=== PATIENT | male | born 1990 | race Caucasian/White ===

== ENCOUNTER 2019-11-28 14:27 | Emergency (ER) | payer MEDICAID, SELFPAY ==
[2019-11-28 15:19] VITALS: BP 134/70; PULSE 83; RESP 18; TEMP 37; O2SAT 98; BMI 33.4
--- NOTE | 2019-11-28 15:36 | HMH.EDUTC ---
[facility] [place] Disposition Clinical Impression: Viral syndrome Acute bronchitis Qualifiers: Bronchitis organism: unspecified organism Qualified Code(s): J20.9 - Acute bronchitis, unspecified Disposition: Home, Self-Care Condition on Discharge: Good Instructions: DI for Viral Syndrome, Preventing the Spread of Coronavirus Discharge Instructions Additional Instructions: Drink plenty of fluids. Take tylenol or ibuprofen for pain or fever. Take the medications as directed. Follow up with your regular doctor. GO TO THE ER FOR ANY WORSENING SYMPTOMS FOLLOW THE DIRECTIONS ON THE COVID-19 HAND OUT THAT WE GAVE YOU REGARDING SELF-ISOLATION UNTIL YOU KNOW YOUR COVID-19 RESULTS Prescriptions: Brompheniramine/Pseudoephed/Dm [Bromfed Dm Cough Syrup] 5 ml PO Q6HP PRN #240 syrup PRN Reason: Cough Transmission Status: Received by [facility] # methylPREDNISolone [Medrol] 4 mg PO DIRECTED 6 Days #21 tab.ds.pk Transmission Status: Received by [facility] # Azithromycin [Z-Yon 250mg Tab*] 250 mg PO UD DOSE PK #6 tab Transmission Status: Received by [facility] # Referrals: PCP,No [Primary Care Provider] - Forms: Work/School Release Time of Disposition: 15:57 Medical Decision Making - Medical Records Medical records reviewed: No: I reviewed the patient's medical records. - [place] Inquiry Pt receiving controlled substance: No Vital Signs: 11/28/19 15:19 11/28/19 16:00 Temperature 98.6 F 98.6 F Temperature Source Oral Oral Pulse Rate 83 Pulse Rate [Radial] 83 Respiratory Rate 18 18 Blood Pressure 134/70 Blood Pressure [Right Arm] 134/70 Blood Pressure Mean [Right Arm] 91 Blood Pressure Source Automatic Cuff Blood Pressure Source [Right Arm] Automatic Cuff Blood Pressure Position Sitting Blood Pressure Position [Right Arm] Sitting 02 Sat by Pulse Oximetry 98 Oxygen Delivery Method Room Air Room Air - Lab Data Lab results reviewed: Yes: I reviewed the patient's lab results. [facility] HPI - General Stated complaint: sneezing, cough, vomiting Time Seen by Provider: 11/28/19 15:36 Mode of Arrival: Ambulatory Source of Information: Patient Limitations: No Limitations Description of Symptoms (Recalled from Triage Doc. by RN): coughing up mucous, sneezing, sinus drainage x 1 week HEENT Symptoms (Recalled from RN notes): Yes Resp Symptoms (Recalled from RN notes): Yes Skin Symptoms (Recalled from RN notes): No MS Symptoms (Recalled from RN notes): No Functional Status (Recalled from RN notes): wnl - History of Present Illness Provider Complaint: He c/o feeling bad, coughing, and chilling for the past 3 days. He denies any definite contact with someone with COVID-19. - Related Data Previous Rx's Medication Instructions Recorded Azithromycin [Z-Yon 250mg Tab*] 250 mg PO UD DOSE PK #6 tab 11/28/19 Brompheniramine/Pseudoephed/Dm 5 ml PO Q6HP PRN #240 syrup 11/28/19 [Bromfed Dm Cough Syrup] methylPREDNISolone [Medrol] 4 mg PO DIRECTED 6 Days #21 11/28/19 tab.ds.pk Allergies Allergy/AdvReac Type Severity Reaction Status Date / Time No Known Allergies Allergy Verified 07/24/17 20:50 - Worker's Comp Is this a Worker's Comp case?: No [facility] History - Hepatitis A Screen Drug use history?: No High risk sexual behaviors?: No History of sexually transmitted infection?: No Currently employed?: No Childcare worker?: No Do you have indoor plumbing?: Yes Do you have electricity?: Yes Attestation statement:: This patient has been screened for Hepatitis A risk factors. I have reviewed the patient's past medical history: Yes Medical History: Denies:: Cancer, Diabetes Mellitus Type 1, Diabetes Mellitus Type 2, MRSA Amputation: No Fractures: No - Social History Smoking Status: Former smoker Tobacco Type: cigarettes, e-cigarettes Alcohol Intake: never Alcohol Intake Frequency:: a few times a week Substance Use Type: marijuana
[2019-11-28 16:00] VITALS: BP 134/70; PULSE 83; RESP 18; TEMP 37; O2SAT 98
== END 2019-11-28 16:04 | disposition home or self-care (01) ==
PROVIDERS: Emergency Provider Nurse Practitioner Family
DX: J20.9 Acute bronchitis, unspecified (principal); Z20.828 Contact with and (suspected) exposure to other viral communicable diseases; Z87.891 Personal history of nicotine dependence
CPT/HCPCS: 99201; U0003

== ENCOUNTER → 2021-01-14 09:37 | Outpatient (CLI) | payer MEDICAID, SELFPAY | PROVIDERS: Visit Provider Nurse Practitioner | DX: Z20.822 Contact with and (suspected) exposure to COVID-19 (principal) | CPT/HCPCS: C9803; U0003; U0005 ==

== ENCOUNTER 2021-02-18 14:55 | Emergency (ER) | payer OTHER, SELFPAY ==
[2021-02-18 16:05] VITALS: BP 127/86; PULSE 85; RESP 18; TEMP 37.1; O2SAT 98; BMI 33.3
--- NOTE | 2021-02-18 16:46 | HMH.EDUTC ---
[facility] [place] Disposition Clinical Impression: Low back pain Qualifiers: Chronicity: unspecified Back pain laterality: left Sciatica presence: with sciatica Sciatica laterality: sciatica of left side Qualified Code(s): M54.42 - Lumbago with sciatica, left side Disposition: Home, Self-Care Condition on Discharge: Good Instructions: DI for Sciatica, DI for Muscle Spasm Additional Instructions: *Etodolac every 8 hours with meal as needed for pain/inflammation *Remember you had a Toradol shot in the clinic today, which is similar to Etodolac *Not additional anti-inflammatory like Ibuprofen motrin, aleve, advil with the above amount of Etodolac. You can still take Tylenol every 4 hours as needed if you need something else for pain *Muscle relaxer every 8 hours as needed for muscle spasms but remember, it WILL cause drowsiness You cannot take it and drive, operate machinery or care for small children. *Keep this area active, no movement leads to more stiffness, However take it easy and avoid heavy lifting pushing or pulling *Follow up with you family doctor if no improvement for further treatment Prescriptions: Etodolac 200 mg PO Q8HP PRN #20 cap PRN Reason: Moderate Pain Transmission Status: Received by [id number] Cyclobenzaprine HCl [Flexeril 10mg tablet] 10 mg PO Q8HP PRN #15 tab PRN Reason: Muscle Spasm Transmission Status: Received by [id number] methylPREDNISolone [Medrol 4mg tab] 4 mg PO DIRECTED #21 tab Transmission Status: Received by [id number] Referrals: Provider,Referral, [Primary Care Provider] - Forms: Work/School Release Medical Decision Making - Aden Inquiry Pt receiving controlled substance: No Aden was queried for this patient: No Vital Signs: 02/18/21 16:05 02/18/21 16:56 Temperature 98.7 F 98.7 F Temperature Source Oral Pulse Rate 85 Pulse Rate [Right Brachial] 85 Respiratory Rate 18 18 Blood Pressure 127/86 Blood Pressure [Right Arm] 127/86 Blood Pressure Mean [Right Arm] 99 Blood Pressure Source [Right Arm] Automatic Cuff Blood Pressure Position [Right Arm] Sitting 02 Sat by Pulse Oximetry 98 Oxygen Delivery Method Room Air Orders (Tests/Meds): ED MEDICATIONS Discontinued Medications Generic Name Dose Route Start Last Admin Trade Name Freq PRN Reason Stop Dose Admin Ketorolac Tromethamine 60 mg 02/18/21 16:46 02/18/21 16:55 Ketorolac 60mg/2ml Vial IM 02/18/21 16:47 60 mg ONCE ONE Administration Methylprednisolone Sodium Succinate 125 mg 02/18/21 16:46 02/18/21 16:55 Methylprednisolone Sod Succ 125mg Vial IM 02/18/21 16:47 125 mg ONCE ONE Administration [facility] HPI - General Stated complaint: wcp, back pain Time Seen by Provider: 02/18/21 16:46 Mode of Arrival: Ambulatory Source of Information: Patient Limitations: No Limitations Description of Symptoms (Recalled from Triage Doc. by RN): PATIENT C/O LOWER BACK PAIN THAT RADIATES DOWN LEFT LEG. HE REPORTS IT STARTED LAST NIGHT AFTER HE PACKED A BOX AT WORK HEENT Symptoms (Recalled from RN notes): No Resp Symptoms (Recalled from RN notes): No Skin Symptoms (Recalled from RN notes): No MS Symptoms (Recalled from RN notes): Yes Functional Status (Recalled from RN notes): WNL - History of Present Illness Provider Complaint: Patient states that he was climbing ladder last night carring a heavy box and felt like he pulled something in his lower back States that the pain is more so on his left lower back that radiates into buttock area and down left leg Denies falling denies known injury State that he has had previous back problems similar to this State that today he went to work and it hurt when he would lift his leg or sit on this side - Related Data Previous Rx's Medication Instructions Recorded Azithromycin [Z-Yon 250mg Tab*] 250 mg PO UD DOSE PK #6 tab 11/28/19 Brompheniramine/Pseudoephed/Dm 5 ml PO Q6HP PRN #240 syrup 11/28/19 [Bromfed Dm Cough Syr
[2021-02-18 16:56] VITALS: BP 127/86; PULSE 85; RESP 18; TEMP 37.1; O2SAT 98
== END 2021-02-18 17:23 | disposition home or self-care (01) ==
PROVIDERS: Emergency Provider Nurse Practitioner
DX: M54.42 Lumbago with sciatica, left side (principal); Z87.891 Personal history of nicotine dependence
CPT/HCPCS: 96372; 99202; G0463

== ENCOUNTER 2021-04-06 18:12 | Emergency (ER) | payer MEDICAID, SELFPAY ==
[2021-04-06 18:13] VITALS: BP 136/78; PULSE 74; RESP 16; TEMP 36.9; O2SAT 100; BMI 33.3
[2021-04-06 18:42] LABS: Basophils # 0.3 K/mm3 (0-0.2); Basophils % 2.6 % (0.1-2.0); Eosinophils # 0.3 K/mm3 (0.0-0.4); Eosinophils % 2.6 % (0.1-12.0); Hematocrit 49.7 % (42.0-52.0); Hemoglobin 16.3 g/dL (14.1-18.0); Lymphocytes # 3.9 K/mm3 (0.7-4.5); Lymphocytes % 38.4 % (10-50); Mean Corpuscular HGB Conc 32.7 g/dL (31.8-35.4); Mean Corpuscular Hemoglobin 28.9 pg (27.0-31.2); Mean Corpuscular Volume 88.4 fl (80-94); Mean Platelet Volume 7.6 fl (7.4-10.4); Monocytes # 0.4 K/mm3 (0.1-1.0); Monocytes % 4.1 % (1.7-9.3); Neutrophils # 5.3 K/mm3 (1.8-7.8); Neutrophils % 52.3 % (37.0-80.0); Platelet Count 311 K/mm3 (142-424); Red Blood Count 5.62 M/mm3 (4.60-6.20); Red Cell Distribution Width 13.4 % (11.5-17.5); White Blood Count 10.1 K/mm3 (4.8-10.8)
[2021-04-06 18:48] LABS: Alanine Aminotransferase 204 U/L (12-78); Albumin Level 5.1 g/dl (3.5-5.0); Albumin/Globulin Ratio 1.7 (1.1-1.8); Alkaline Phosphatase 72 U/L (38-126); Anion Gap 12.1 mEq/L (5-15); Aspartate Amino Transferase 88 U/L (17-59); Bilirubin,Total 0.9 mg/dl (0.2-1.3); Blood Urea Nitrogen 13 mg/dl (9-20); Calcium 9.7 mg/dl (8.4-10.2); Carbon Dioxide 30 mmol/L (22.0-30.0); Chloride 103 mmol/L (98-107); Creatinine Clearance Estimated 173 mL/min (50-200); Estimated Glomerular Filt Rate 114 ml/min (>60); GFR (African American) 137 ML/MIN (>60); Glucose 98 mg/dl (74-100); Lipase 318 U/L (23-300); Potassium 4.1 mmoL/L (3.5-5.1); Sodium 141 mmol/L (136-145); Total Protein,Serum 8.1 g/dl (6.3-8.2)
--- NOTE | 2021-04-06 19:01 | HMH.EDGENADL ---
ED Disposition Clinical Impression: Right flank pain Constipation Qualifiers: Constipation type: unspecified constipation type Qualified Code(s): K59.00 - Constipation, unspecified Disposition: Home, Self-Care Condition on Discharge: Good Instructions: DI for Constipation, DI for Flank Pain Additional Instructions: You have been evaluated for right flank pain. This is possibly due to musculoskeletal injury or to constipation. Please take a disimpaction dose of MiraLAX tonight, 3 capfuls. After that, take 1 cap daily. Drink water and eat fiber. Exercise daily. Follow-up with your primary care doctor. Return to the emergency department for any new or worsening symptoms. Prescriptions: polyethylene glycoL 3350 [Miralax 17gm Packet] 17 gm PO DAILY #30 packet Transmission Status: Pending to [id number] Referrals: Thor Baca MD [Staff Physician] - Time of Disposition: 20:32 - Critical Care Critical Care Time: No Attestation: On 04/06/21, the high probability of a clinically significant, sudden or life threatening deterioration of the following system(s) required my full and direct attention, intervention and personal management. The time I documented below is in addition to time spent performing reported procedures but includes the following listed in this critical care notation. Medical Decision Making - Medical Records Medical records reviewed: Yes: I reviewed the patient's medical records. - Aden Inquiry Pt receiving controlled substance: No Vital Signs: 04/06/21 18:13 Temperature 98.4 F Temperature Source Oral Pulse Rate [Right Radial] 74 Respiratory Rate 16 Blood Pressure [Right Arm] 136/78 Blood Pressure Mean [Right Arm] 97 Blood Pressure Source [Right Arm] Automatic Cuff Blood Pressure Position [Right Arm] Sitting 02 Sat by Pulse Oximetry 100 Oxygen Delivery Method Room Air - Lab Data Lab Results 04/06/21 18:29: WBC 10.1, RBC 5.62, Hgb 16.3, Hct 49.7, MCV 88.4, MCH 28.9, MCHC 32.7, RDW 13.4, Plt Count 311, MPV 7.6, Neut % (Auto) 52.3, Lymph % (Auto) 38.4, [place] % (Auto) 4.1, Eos % (Auto) 2.6, Baso % (Auto) 2.6 H, Neut # (Auto) 5.3, Lymph # (Auto) 3.9, [place] # (Auto) 0.4, Eos # (Auto) 0.3, Baso # (Auto) 0.3 H 04/06/21 18:29: Sodium 141, Potassium 4.1, Chloride 103, Carbon Dioxide 30, Anion Gap 12.1, BUN 13, Creatinine 0.80, Estimated Creat Clear 173, Estimated GFR 114, Est GFR ( Amer) 137, Glucose 98, Calcium 9.7, Total Bilirubin 0.9, AST 88 H, ALT 204 H, Alkaline Phosphatase 72, Total Protein 8.1, Albumin 5.1 H, Globulin 3.0, Albumin/Globulin Ratio 1.7, Lipase 318 H 04/06/21 18:44: Urine Color Yellow, Urine Appearance Clear, Urine pH 6.0, Ur Specific [place] 1.025, Urine Protein Negative, Urine Glucose (UA) Negative, Urine Ketones Negative, Urine Blood Negative, Urine Nitrate Negative, Urine Bilirubin Negative, Urine Urobilinogen 0.2, Ur Leukocyte Esterase Negative, Urine RBC None, Urine WBC None, Ur Squamous Epith Cells Occasional, Urine Bacteria None Result diagrams: 04/06/21 18:29 04/06/21 18:29 Orders (Tests/Meds): ED MEDICATIONS Discontinued Medications Generic Name Dose Route Start Last Admin Trade Name Freq PRN Reason Stop Dose Admin Ketorolac Tromethamine 30 mg 04/06/21 18:28 04/06/21 18:32 Ketorolac 30mg/Ml Vial IV 04/06/21 18:29 30 mg ONCE ONE Administration Medical Decision Narrative: In summary this is a previously healthy 30-year-old male presenting to the emergency department with right flank pain. Patient clinically stable on arrival. Vital signs within normal limits. Concern for obstructing kidney stone, nonobstructing stone, urinary tract infection. Will obtain CBC, CMP, urinalysis. Given IV fluids and 30 mg IV Toradol Initial laboratory results are reassuring. Renal function is adequate. There is slight elevation in AST and ALT, consistent with liver disease. Urinalysis does not show red blood cells or signs of i
[2021-04-06 19:03] LABS: Microscopic, Urine URINE MICROSCOPIC (MICROSCOPIC)
[2021-04-06 19:07] LABS: Appearance,Urine CLEAR (Clear); Bilirubin,Urine Negative (Negative); Blood, Urine Negative (Negative); Color,Urine YELLOW (Yellow); Glucose,Urine (UA) Negative (Negative); Ketones,Urine Negative (Negative); Leukocyte Esterase,Urine Negative (Negative); Nitrate,Urine Negative (Negative); Protein,Urine Negative (Negative); Specific Gravity, Urine 1.025 (1.005-1.030); Urobilinogen,Urine 0.2 EU/dl (0.2)
--- NOTE | 2021-04-06 19:36 | CT_ITS ---
PROCEDURE INFORMATION: Exam: CT Abdomen And Pelvis Without Contrast Exam date and time: 04/06/2021 7:36 PM Age: 30 years old Clinical indication: Abdominal pain; Flank; Right; Additional info: Flank pain, stone suspected TECHNIQUE: Imaging protocol: Computed tomography of the abdomen and pelvis without contrast. Radiation optimization: All CT scans at this facility use at least one of these dose optimization techniques: automated exposure control; mA and/or kV adjustment per patient size (includes targeted exams where dose is matched to clinical indication); or iterative reconstruction. [facility] pelvis w con 07/24/2017 9:37 PM FINDINGS: Liver: Normal. No mass. Gallbladder and bile ducts: Normal. No calcified stones. No ductal dilation. Pancreas: Normal. No ductal dilation. Spleen: Normal. No splenomegaly. Adrenal glands: Normal. No mass. Kidneys and ureters: Normal. No hydronephrosis. Stomach and bowel: Considerable volume of stool seen within the colon. Appendix: No evidence of appendicitis. Intraperitoneal space: Unremarkable. No free air. No significant fluid collection. Vasculature: Circumaortic left renal vein. No abdominal aortic aneurysm. Lymph nodes: Unremarkable. No enlarged lymph nodes. Urinary bladder: Unremarkable as visualized. Reproductive: Unremarkable as visualized. Bones/joints: Transitional lumbosacral vertebra. Soft tissues: Unremarkable. IMPRESSION: 1. Constipation. 2. Transitional lumbosacral vertebra.
[2021-04-06 19:39] LABS: Squamous Epithelial Cell,Urine Occasional #/hpf (0-5)
[2021-04-06 21:03] VITALS: BP 119/72; PULSE 69; RESP 16; TEMP 36.9; O2SAT 100
== END 2021-04-06 21:04 | disposition home or self-care (01) ==
PROVIDERS: Emergency Provider Emergency Medicine
DX: R10.30 Lower abdominal pain, unspecified (principal); K59.00 Constipation, unspecified
CPT/HCPCS: 74176; 80053; 81001; 83690; 85025; 96365; 99283

== ENCOUNTER → 2021-06-01 17:23 | Outpatient (CLI) | payer MEDICAID, SELFPAY ==
--- NOTE | 2021-06-01 17:45 | XR_ITS ---
PROCEDURE INFORMATION: Exam: XR Chest Exam date and time: 06/01/2021 5:51 PM Age: 30 years old Clinical indication: Patient HX: Cough pre-op; Additional info: Cough, pre-op TECHNIQUE: Imaging protocol: XR of the chest. Views: 2 views. COMPARISON: CT ABDOMEN PELVIS WO CON 04/06/2021 7:41 PM FINDINGS: Lungs: Unremarkable. No consolidation. Pleural spaces: Unremarkable. No pleural effusion. No pneumothorax. Heart/Mediastinum: Unremarkable. No cardiomegaly. Bones/joints: Unremarkable. IMPRESSION: No acute findings.
--- NOTE | 2021-06-01 17:49 | ECG_ITS ---
APPROVED REPORT Exam: Resting ECG HR:78 bpm ECG Measurements Heart Rate 78 AXES [place] 143 P 53 QRSd 84 QRS 64 QT 344 T 45 QTc 378 Conclusion SINUS RHYTHM NORMAL ECG UNCONFIRMED REPORT Electronically signed by : Erick Taveras MD 06/03/2021 17:36:17
[2021-06-01 18:20] LABS: Microscopic, Urine URINE MICROSCOPIC (MICROSCOPIC)
[2021-06-01 18:30] LABS: Basophils # 0.2 K/mm3 (0-0.2); Basophils % 2.1 % (0.1-2.0); Eosinophils # 0.2 K/mm3 (0.0-0.4); Eosinophils % 1.8 % (0.1-12.0); Hemoglobin 15.1 g/dL (14.1-18.0); Lymphocytes # 2.8 K/mm3 (0.7-4.5); Lymphocytes % 32.3 % (10-50); Mean Corpuscular HGB Conc 32.7 g/dL (31.8-35.4); Mean Corpuscular Hemoglobin 28.7 pg (27.0-31.2); Mean Corpuscular Volume 87.8 fl (80-94); Mean Platelet Volume 7.4 fl (7.4-10.4); Monocytes # 0.4 K/mm3 (0.1-1.0); Monocytes % 4.5 % (1.7-9.3); Neutrophils # 5.1 K/mm3 (1.8-7.8); Neutrophils % 59.3 % (37.0-80.0); Platelet Count 327 K/mm3 (142-424); Red Blood Count 5.24 M/mm3 (4.60-6.20); Red Cell Distribution Width 13.6 % (11.5-17.5); White Blood Count 8.5 K/mm3 (4.8-10.8)
[2021-06-01 18:32] LABS: Appearance,Urine CLEAR (Clear); Bilirubin,Urine Negative (Negative); Blood, Urine Negative (Negative); Color,Urine YELLOW (Yellow); Glucose,Urine (UA) Negative (Negative); Ketones,Urine Negative (Negative); Leukocyte Esterase,Urine Negative (Negative); Nitrate,Urine Negative (Negative); Protein,Urine Negative (Negative); Specific Gravity, Urine >= 1.030 (1.005-1.030); Urobilinogen,Urine 0.2 EU/dl (0.2)
[2021-06-01 18:42] LABS: Chloride 104 mmol/L (98-107)
[2021-06-01 18:43] LABS: Sodium 140 mmol/L (136-145)
[2021-06-01 18:45] LABS: Blood Urea Nitrogen 14 mg/dl (9-20); Estimated Glomerular Filt Rate 99 ml/min (>60); GFR (African American) 120 ML/MIN (>60)
[2021-06-01 18:46] LABS: Alanine Aminotransferase 221 U/L (12-78); Albumin Level 4.3 g/dl (3.5-5.0); Albumin/Globulin Ratio 1.4 (1.1-1.8); Alkaline Phosphatase 72 U/L (38-126); Aspartate Amino Transferase 101 U/L (17-59); Bilirubin,Total 1.3 mg/dl (0.2-1.3); Calcium 8.5 mg/dl (8.4-10.2); Carbon Dioxide 28 mmol/L (22.0-30.0); Globulin 3.1 g/dL (1.3-3.2); Glucose 94 mg/dl (74-100); Squamous Epithelial Cell,Urine Occasional #/hpf (0-5); Total Protein,Serum 7.4 g/dl (6.3-8.2); WBC,Urine Occasional #/hpf (0-3)
== END ==
PROVIDERS: Visit Provider Orthopaedic Surgery Adult Reconstructive Orthopaedic Surgery
DX: Z01.818 Encounter for other preprocedural examination (principal); Z11.52 Encounter for screening for COVID-19
CPT/HCPCS: 36415; 71046; 80053; 81001; 85025; 93005; C9803; U0003; U0005

== ENCOUNTER 2021-09-26 12:24 | Emergency (ER) | payer MEDICAID, SELFPAY ==
[2021-09-26 12:25] VITALS: BP 121/77; PULSE 76; RESP 20; TEMP 36.7; O2SAT 98; BMI 33.3
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
--- NOTE | 2021-09-26 12:43 | PC.NURSE ---
PT TO XR
--- NOTE | 2021-09-26 13:12 | PC.NURSE ---
PT UPDATED AT THIS TIME, NO NEEDS VOICED. CALL LIGHT WITHIN REACH
--- NOTE | 2021-09-26 13:52 | PC.NURSE ---
MD AT BEDSIDE FOR EVALUATION
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
--- NOTE | 2021-09-26 14:02 | PC.NURSE ---
WARM BLANKET PROVIDED AT THIS TIME
--- NOTE | 2021-09-26 14:32 | PC.NURSE ---
1424 CALLED RADIOLOGY FOR UPDATE ON XR RESULTS
[2021-09-26 14:35] VITALS: BP 107/62; PULSE 70; RESP 18; TEMP 36.7; O2SAT 98
== END 2021-09-26 14:35 | disposition home or self-care (01) ==
PROVIDERS: Emergency Provider Student in an Organized Health Care Education/Training Program
DX: S62.501A Fracture of unspecified phalanx of right thumb, initial encounter for closed fracture (principal); X58.XXXA Exposure to other specified factors, initial encounter; Y93.9 Activity, unspecified; Y92.9 Unspecified place or not applicable; Y99.8 Other external cause status
CPT/HCPCS: 73130; 99283

== ENCOUNTER 2022-01-23 12:10 | Emergency (ER) | payer MEDICAID, SELFPAY ==
[2022-01-23 12:11] VITALS: BP 133/97; PULSE 80; RESP 18; TEMP 36.9; O2SAT 96; BMI 29.9
--- NOTE | 2022-01-23 12:18 | ECG_ITS ---
APPROVED REPORT Exam: Resting ECG HR:65 bpm ECG Measurements Heart Rate 65 AXES [place] 154 P 73 QRSd 92 QRS 79 QT 363 T 56 QTc 374 Conclusion SINUS RHYTHM NORMAL ECG UNCONFIRMED REPORT Electronically signed by : Erick Taveras MD 01/26/2022 20:19:46
--- NOTE | 2022-01-23 12:38 | CT_ITS ---
PROCEDURE INFORMATION: Exam: CT Head Without Contrast Exam date and time: 01/23/2022 12:53 PM Age: 31 years old Clinical indication: Dizziness; Additional info: Dizzy, hit head TECHNIQUE: Imaging protocol: Computed tomography of the head without contrast. Radiation optimization: All CT scans at this facility use at least one of these dose optimization techniques: automated exposure control; mA and/or kV adjustment per patient size (includes targeted exams where dose is matched to clinical indication); or iterative reconstruction. COMPARISON: [facility] CT head/brain wo con 07/24/2017 9:30 PM FINDINGS: Brain: Normal. No hemorrhage. Unremarkable white matter. No mass effect. Cerebral ventricles: No ventriculomegaly. Paranasal sinuses: Visualized sinuses are unremarkable. No fluid levels. Mastoid air cells: Visualized mastoid air cells are well aerated. Bones/joints: Unremarkable. No acute fracture. Soft tissues: Left parietal soft tissue swelling. IMPRESSION: Left parietal soft tissue swelling but no evidence of acute intracranial pathology.
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
[2022-01-23 13:27] LABS: Influenza A, PCR Not Detected (NotDetected); Influenza B, PCR Not Detected (NotDetected)
[2022-01-23 14:23] LABS: Coronavirus 19, PCR Detected (NotDetected)
[2022-01-23 14:58] VITALS: BP 113/65; PULSE 63; RESP 18; O2SAT 97
[2022-01-23 15:00] VITALS: BP 111/63; PULSE 60; O2SAT 96
[2022-01-23 15:36] VITALS: BP 111/63; PULSE 62; RESP 20; TEMP 36.7; O2SAT 96
== END 2022-01-23 15:30 | disposition home or self-care (01) ==
PROVIDERS: Emergency Provider Emergency Medicine
DX: U07.1 COVID-19 (principal); S00.83XA Contusion of other part of head, initial encounter; W22.8XXA Striking against or struck by other objects, initial encounter
CPT/HCPCS: 70450; 93005; 99284; C9803; U0003; U0005

== ENCOUNTER → 2022-04-23 09:01 | Outpatient (CLI) | payer MEDICAID, SELFPAY ==
[2022-04-23 18:25] LABS: Basophils # 0.1 K/mm3 (0-0.2); Basophils % 1.3 % (0.1-2.0); Eosinophils # 0.3 K/mm3 (0.0-0.4); Eosinophils % 2.8 % (0.1-12.0); Hematocrit 45.5 % (42.0-52.0); Hemoglobin 15.1 g/dL (14.1-18.0); Lymphocytes # 4.2 K/mm3 (0.7-4.5); Lymphocytes % 41.8 % (10-50); Mean Corpuscular HGB Conc 33.3 g/dL (31.8-35.4); Mean Corpuscular Volume 87.3 fl (80-94); Mean Platelet Volume 8.4 fl (7.4-10.4); Monocytes # 0.5 K/mm3 (0.1-1.0); Monocytes % 4.9 % (1.7-9.3); Neutrophils # 4.9 K/mm3 (1.8-7.8); Neutrophils % 49.2 % (37.0-80.0); Platelet Count 292 K/mm3 (142-424); Red Blood Count 5.21 M/mm3 (4.60-6.20); Red Cell Distribution Width 13.4 % (11.5-17.5)
[2022-04-23 18:29] LABS: Alanine Aminotransferase 106 U/L (12-78); Albumin Level 5.1 g/dl (3.5-5.0); Albumin/Globulin Ratio 1.6 (1.1-1.8); Alkaline Phosphatase 79 U/L (38-126); Anion Gap 8.2 mEq/L (5-15); Aspartate Amino Transferase 52 U/L (17-59); Bilirubin,Total 1.2 mg/dl (0.2-1.3); Blood Urea Nitrogen 16 mg/dl (9-20); Calcium 9.5 mg/dl (8.4-10.2); Carbon Dioxide 27 mmol/L (22.0-30.0); Chloride 108 mmol/L (98-107); Estimated Glomerular Filt Rate 113 ml/min (>60); GFR (African American) 136 ML/MIN (>60); Globulin 3.1 g/dL (1.3-3.2); Glucose 96 mg/dl (74-100); Potassium 4.2 mmoL/L (3.5-5.1); Sodium 139 mmol/L (136-145); Total Protein,Serum 8.2 g/dl (6.3-8.2)
[2022-04-23 18:35] LABS: C-Reactive Protein 2.2 mg/L (0-4)
[2022-04-23 19:00] LABS: Thyroid Stimulating Hormone 1.05 uIU/mL (0.465-4.68)
[2022-04-23 19:31] LABS: Erythrocyte Sedimentation Rate 5 mm/hr (0-15)
[2022-04-25 12:38] LABS: HIV Screen 4th Generation wRfx Non Reactive (Non Reactive)
[2022-04-28 00:08] LABS: HCV Genotype Charge YES; Hepatitis C Genotype 1a (.)
[2022-05-01 21:27] LABS: Hep A Ab, Total NEGATIVE; Hep B Core Ab, Total NEGATIVE; Hepatitis B Surface Antigen REACTIVE
[2022-05-01 21:28] LABS: Hep B Surface Ab, Qual NEGATIVE; Hepatitis C Antibody REACTIVE
== END ==
PROVIDERS: PCP Nurse Practitioner Family; Visit Provider Nurse Practitioner Family
DX: Z00.00 Encounter for general adult medical examination without abnormal findings (principal); Z11.59 Encounter for screening for other viral diseases; B34.9 Viral infection, unspecified; Z11.4 Encounter for screening for human immunodeficiency virus [HIV]
CPT/HCPCS: 80053; 84443; 85025; 85651; 86140; 86703; 86704; 86706; 86708; 87340; 87380; 87522; 87902; G0432

== ENCOUNTER 2022-04-26 17:34 | Emergency (ER) | payer MEDICAID, SELFPAY ==
[2022-04-26 17:40] VITALS: BP 109/70; PULSE 81; RESP 20; TEMP 37; O2SAT 97; BMI 31.1
--- NOTE | 2022-04-26 17:51 | EXP.UTC ---
Discharge Plan Disposition Patient Disposition: Home, Self-Care Condition: Good Prescriptions Prescriptions: New baclofen 5 mg tablet 5 mg PO TID PRN (Reason: muscle spasm) Qty: 9 0RF No Action Vraylar 1.5 mg capsule 1.5 mg PO DAILY Qty: 30 2RF Referrals Follow up/Referrals: Johny Clark APRN [Primary Care Provider] - See instructions Activity Restrictions/Add. Instructions Additional Instructions/Restrictions: *Ibuprofen ap 6 hours with meal as needed for pain/inflammation if your doctor has said you can take it *Remember you had a Toradol shot in the clinic today, which is similar to Motrin *Ice 20 minutes every 2 hours for the first 48 hours after the initial injury followed by moist heat every 20 minutes 3-4 times a day to affected area *Muscle relaxer every 8 hours as needed for muscle spasms but remember, it WILL cause drowsiness You cannot take it and drive, operate machinery or care for small children. *Keep this area active, no movement leads to more stiffness, However take it easy and avoid heavy lifting pushing or pulling *Follow up with you family doctor if no improvement for further treatment ?Straight to ER if any life threatening symptoms? Clinical Impressions Clinical Impression: Low back pain Stand Alone Forms Stand Alone Forms: Work/School Release Instructions Patient Instructions: DI for Low Back Pain, Low Back Pain, Baclofen Discharge ED Provider: Kenia Salcedo [facility] General Stated complaint: back pain, no accident Time Seen by Provider: 04/26/22 17:51 History of Present Illness Provider Complaint: Patient states that over the weekend he was lifting some heavy cylinders and felt something pull in his lower back States that he has a bad back anyhow and thinks he may have aggravated it States that feels like he is having muscle spasms and it catches when he moves certain ways Denies loss of control of bowel or bladder Related Data Previous Rx's Medication Instructions Recorded cariprazine 1.5 mg capsule 1.5 mg PO DAILY #30 caps 04/23/22 (Vraylar) baclofen 5 mg tablet 5 mg PO TID PRN muscle spasm #9 04/26/22 tabs Allergies Allergy/AdvReac Type Severity Reaction Status Date / Time ziprasidone [From Geodon] Allergy Unknown Verified 04/23/22 13:40 [facility] Disclaimer: The information contained in this section may have been updated after the patient was seen, as this information can be updated by other users. Medical History (Updated 04/26/22 @ 18:31 by Kenia Salcedo APRN) ADHD Anxiety and depression Fracture of left elbow History of intravenous drug abuse Manic bipolar I disorder Panic attacks Surgical History (Updated 04/23/22 @ 13:45 by Kaye Cruz MA) H/O elbow surgery Social History (Updated 04/23/22 @ 13:46 by Kaye Cruz MA) Smoking Status: Light tobacco smoker tobacco type: e-cigarettes alcohol intake: never substance use type: former substance user and marijuana current occupational status: other Travel in the last 8 weeks: None ROS Obtained: Yes All systems reviewed & no additional complaints except as documented and Yes Systems reviewed as appropriate & no additional complaints except as documented ENT Ears, Nose, Mouth, and Throat: Reports system reviewed and no additional complaints, except as documented and Reports as per HPI Cardiovascular Cardiovascular: Reports system reviewed and no additional complaints, except as documented and Reports as per HPI Respiratory Respiratory: Reports system reviewed and no additional complaints, except as documented and Reports as per HPI Gastrointestinal Gastrointestingal: Reports system reviewed and no additional complaints, except as documented and as per HPI Musculoskeletal Musculoskeletal: Reports system reviewed and no additional complaints, except as documented, Reports as per HPI and Reports back pain (denies loss of control of bowel or blad
[2022-04-26 18:31] VITALS: BP 109/70; PULSE 81; RESP 20; TEMP 37; O2SAT 97
== END 2022-04-26 18:36 | disposition home or self-care (01) ==
PROVIDERS: Emergency Provider Nurse Practitioner; PCP Nurse Practitioner Family
DX: M54.50 Low back pain, unspecified (principal); X50.9XXA Other and unspecified overexertion or strenuous movements or postures, initial encounter
CPT/HCPCS: 96372; 99212; 99213; G0463

== ENCOUNTER 2022-05-25 17:24 | Emergency (ER) | payer MEDICAID, SELFPAY ==
[2022-05-25 18:10] VITALS: BP 102/61; PULSE 77; RESP 18; TEMP 37.2; O2SAT 98; BMI 32.4
--- NOTE | 2022-05-25 18:20 | XR_ITS ---
PROCEDURE INFORMATION: Exam: XR Lumbosacral Spine Exam date and time: 05/25/2022 6:22 PM Age: 31 years old Clinical indication: Injury or trauma; Fall; Blunt trauma (contusions or hematomas); Patient HX: Fell while skateboarding. ; Additional info: Fell skateboarding TECHNIQUE: Imaging protocol: Radiologic exam of the lumbosacral spine. Views: 2 or 3 views. COMPARISON: CT ABDOMEN PELVIS WO CON 04/06/2021 7:41 PM FINDINGS: Bones/joints: Normal. No acute fracture. Normal alignment. Soft tissues: Unremarkable. IMPRESSION: No acute findings.
--- NOTE | 2022-05-25 18:40 | EXP.UTC ---
Discharge Plan Disposition Patient Disposition: Home, Self-Care Condition: Good Prescriptions Prescriptions: New baclofen 5 mg tablet 5 mg PO TID PRN (Reason: muscle spasm) Qty: 12 0RF ibuprofen 600 mg tablet 600 mg PO Q8H PRN (Reason: pain) Qty: 15 0RF No Action Vraylar 1.5 mg capsule 1.5 mg PO DAILY Qty: 30 2RF baclofen 5 mg tablet 5 mg PO TID PRN (Reason: muscle spasm) Qty: 9 0RF Referrals Follow up/Referrals: Provider,Referral, MD [Primary Care Provider] - See instructions Activity Restrictions/Add. Instructions Additional Instructions/Restrictions: *Ibuprofen ap 8 hours with meal as needed for pain/inflammation *Remember you had a Toradol shot in the clinic today, which is similar to Motrin *Not additional anti-inflammatory like motrin, aleve, advil with the above amount of ibuprofen. You can still take Tylenol every 4 hours as needed if you need something else for pain *Ice 20 minutes every 2 hours for the first 48 hours after the initial injury followed by moist heat every 20 minutes 3-4 times a day to affected area *Muscle relaxer every 8 hours as needed for muscle spasms but remember, it WILL cause drowsiness You cannot take it and drive, operate machinery or care for small children. *Keep this area active, no movement leads to more stiffness, However take it easy and avoid heavy lifting pushing or pulling *Follow up with you family doctor if no improvement for further treatment Clinical Impressions Clinical Impression: Low back pain Qualifiers: Chronicity: unspecified Back pain laterality: left Sciatica presence: with sciatica Sciatica laterality: sciatica of left side Qualified Code(s): M54.42 - Lumbago with sciatica, left side Instructions Patient Instructions: DI for Low Back Pain, Baclofen Discharge ED Provider: Kenia Salcedo [facility] General Stated complaint: ao back pain Mode of Arrival: Ambulatory Source of Information: Patient Limitations: No Limitations Time Seen by Provider: 05/25/22 18:40 Description of Symptoms (Recalled from Triage Doc. by RN): PATIENT C/O LOWER BACK PAIN AFTER FALLING OFF OF HIS SKATEBOARD YESTERDAY HEENT Symptoms (Recalled from RN notes): No Resp Symptoms (Recalled from RN notes): No Skin Symptoms (Recalled from RN notes): No MS Symptoms (Recalled from RN notes): Yes Functional Status (Recalled from RN notes): WNL History of Present Illness Provider Complaint: Patient states that he has had back issues in the past States that he was skateboarding yesterday and he fell and hurt his back State that his back was a little sore but today he bent over to nut picker a box and felt like his back had a catch in it States that since then he has been having spasms in his lower back into his left hip area Denies loss of control of bowel or bladder Denies numbness/tingling in extremities Related Data Previous Rx's Medication Instructions Recorded cariprazine 1.5 mg capsule 1.5 mg PO DAILY #30 caps 04/23/22 (Vraylar) baclofen 5 mg tablet 5 mg PO TID PRN muscle spasm #9 04/26/22 tabs baclofen 5 mg tablet 5 mg PO TID PRN muscle spasm #12 05/25/22 tabs ibuprofen 600 mg tablet 600 mg PO Q8H PRN pain #15 tabs 05/25/22 Allergies Allergy/AdvReac Type Severity Reaction Status Date / Time ziprasidone [From Светлана] Allergy Unknown Verified 04/23/22 13:40 Worker's Comp Is this a Worker's Comp case?: No [facility] Disclaimer: The information contained in this section may have been updated after the patient was seen, as this information can be updated by other users. Medical History (Updated 05/25/22 @ 19:12 by Kenia Salcedo APRN) Acute bronchitis ADHD Anxiety and depression Constipation Contusion of forehead COVID-19 virus infection Facial contusion Fracture of left elbow Fracture of scaphoid History of intravenous drug abuse Laceration Manic bipolar I disorder Nausea and vomiting Panic attacks Right flank pain Seizures Sprain of foot, lef
[2022-05-25 19:07] VITALS: BP 102/61; PULSE 77; RESP 18; TEMP 37.2; O2SAT 98
== END 2022-05-25 19:30 | disposition home or self-care (01) ==
PROVIDERS: Emergency Provider Nurse Practitioner
DX: M54.42 Lumbago with sciatica, left side (principal); F17.290 Nicotine dependence, other tobacco product, uncomplicated
CPT/HCPCS: 96372; 72100; 99212; 99214; G0463

== ENCOUNTER → 2022-07-07 16:26 | Outpatient (CLI) | payer MEDICAID, SELFPAY ==
[2022-07-07 17:52] LABS: Basophils # 0.1 K/mm3 (0-0.2); Basophils % 0.7 % (0.1-2.0); Eosinophils # 0.3 K/mm3 (0.0-0.4); Eosinophils % 2.7 % (0.1-12.0); Hematocrit 46.8 % (42.0-52.0); Hemoglobin 15.5 g/dL (14.1-18.0); Lymphocytes # 4.5 K/mm3 (0.7-4.5); Lymphocytes % 42.5 % (10-50); Mean Corpuscular HGB Conc 33.2 g/dL (31.8-35.4); Mean Corpuscular Hemoglobin 28.4 pg (27.0-31.2); Mean Corpuscular Volume 85.7 fl (80-94); Mean Platelet Volume 8.5 fl (7.4-10.4); Monocytes # 0.5 K/mm3 (0.1-1.0); Monocytes % 4.4 % (1.7-9.3); Neutrophils # 5.3 K/mm3 (1.8-7.8); Neutrophils % 49.7 % (37.0-80.0); Platelet Count 262 K/mm3 (142-424); Red Blood Count 5.46 M/mm3 (4.60-6.20); Red Cell Distribution Width 13.2 % (11.5-17.5); White Blood Count 10.6 K/mm3 (4.8-10.8)
[2022-07-07 18:06] LABS: Alanine Aminotransferase 32 U/L (12-78); Albumin Level 4.6 g/dl (3.5-5.0); Albumin/Globulin Ratio 1.7 (1.1-1.8); Alkaline Phosphatase 64 U/L (38-126); Anion Gap 18.9 mEq/L (5-15); Aspartate Amino Transferase 30 U/L (17-59); Bilirubin,Total 0.9 mg/dl (0.2-1.3); Blood Urea Nitrogen 17 mg/dl (9-20); Calcium 9.1 mg/dl (8.4-10.2); Carbon Dioxide 25 mmol/L (22.0-30.0); Chloride 99 mmol/L (98-107); Estimated Glomerular Filt Rate 113 ml/min (>60); GFR (African American) 136 ML/MIN (>60); Globulin 2.7 g/dL (1.3-3.2); Glucose 95 mg/dl (74-100); Potassium 3.9 mmoL/L (3.5-5.1); Sodium 139 mmol/L (136-145); Total Protein,Serum 7.3 g/dl (6.3-8.2)
[2022-07-17 20:42] LABS: Hepatitis C Antibody Reactive
== END ==
PROVIDERS: PCP Nurse Practitioner Family; Visit Provider Nurse Practitioner Family
DX: B18.2 Chronic viral hepatitis C (principal)
CPT/HCPCS: 80053; 85025; 87380; 87522

== ENCOUNTER 2022-07-12 18:12 | Emergency (ER) | payer MEDICAID, SELFPAY ==
[2022-07-12] VITALS (8 sets, daily range): BP systolic 90–137; BP diastolic 53–86; PULSE 74–105; RESP 15–24; TEMP 36.4–36.6; O2SAT 95–100; BMI 30.7
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
--- NOTE | 2022-07-12 18:34 | PC.NURSE ---
PATIENT TAKEN TO CT, SHERIFF NA MD & FINANCIAL MANAGEMENT CONSULTANT ASSISTED IN TRANSPORT
[2022-07-12 18:35] LABS: Basophils # 0.1 K/mm3 (0-0.2); Basophils % 0.5 % (0.1-2.0); Eosinophils # 0.2 K/mm3 (0.0-0.4); Eosinophils % 1.4 % (0.1-12.0); Hematocrit 49.5 % (42.0-52.0); Hemoglobin 16.3 g/dL (14.1-18.0); Mean Corpuscular HGB Conc 32.8 g/dL (31.8-35.4); Mean Corpuscular Hemoglobin 28.4 pg (27.0-31.2); Mean Corpuscular Volume 86.5 fl (80-94); Mean Platelet Volume 8.2 fl (7.4-10.4); Monocytes # 0.5 K/mm3 (0.1-1.0); Monocytes % 3.2 % (1.7-9.3); Neutrophils # 9.4 K/mm3 (1.8-7.8); Neutrophils % 66.9 % (37.0-80.0); Platelet Count 263 K/mm3 (142-424); Red Blood Count 5.72 M/mm3 (4.60-6.20); Red Cell Distribution Width 13.1 % (11.5-17.5); White Blood Count 14.1 K/mm3 (4.8-10.8)
--- NOTE | 2022-07-12 18:40 | PC.NURSE ---
Patient in CT with staff
--- NOTE | 2022-07-12 18:44 | PC.NURSE ---
PATIENT BACK FROM CT
[2022-07-12 18:49] LABS: Ethyl Alcohol 172 mg/dl (0-10)
[2022-07-12 18:50] LABS: Alanine Aminotransferase 37 U/L (12-78); Albumin Level 5.1 g/dl (3.5-5.0); Albumin/Globulin Ratio 1.5 (1.1-1.8); Alkaline Phosphatase 75 U/L (38-126); Anion Gap 23.8 mEq/L (5-15); Aspartate Amino Transferase 39 U/L (17-59); Bilirubin,Total 0.8 mg/dl (0.2-1.3); Blood Urea Nitrogen 13 mg/dl (9-20); Calcium 9.1 mg/dl (8.4-10.2); Carbon Dioxide 22 mmol/L (22.0-30.0); Chloride 101 mmol/L (98-107); Creatinine Clearance Estimated 150 mL/min (50-200); Estimated Glomerular Filt Rate 98 ml/min (>60); GFR (African American) 119 ML/MIN (>60); Globulin 3.3 g/dL (1.3-3.2); Glucose 120 mg/dl (74-100); Potassium 3.8 mmoL/L (3.5-5.1); Sodium 143 mmol/L (136-145); Total Protein,Serum 8.4 g/dl (6.3-8.2)
--- NOTE | 2022-07-12 19:10 | ECG_ITS ---
APPROVED REPORT Exam: Resting ECG HR:85 bpm ECG Measurements Heart Rate 85 AXES PA 186 P 59 QRSd 97 QRS 63 QT 366 T 23 QTc 408 Conclusion SINUS RHYTHM NORMAL ECG UNCONFIRMED REPORT Electronically signed by : Erick Taveras MD 07/12/2022 21:12:56
--- NOTE | 2022-07-12 20:18 | PC.NURSE ---
RESTRAINTS REMOVED A THIS TIME
[2022-07-12 21:37] LABS: Microscopic, Urine URINE MICROSCOPIC (MICROSCOPIC)
[2022-07-12 21:42] LABS: Appearance,Urine CLEAR (Clear); Bilirubin,Urine Negative (Negative); Blood, Urine Negative (Negative); Color,Urine YELLOW (Yellow); Glucose,Urine (UA) Negative (Negative); Ketones,Urine Negative (Negative); Leukocyte Esterase,Urine Negative (Negative); Nitrate,Urine Negative (Negative); Protein,Urine Negative (Negative); Specific Gravity, Urine 1.015 (1.005-1.030); Urobilinogen,Urine 0.2 EU/dl (0.2)
[2022-07-12 21:54] LABS: Benzodiazepines Screen,Urine Negative ng/ml (<200)
[2022-07-12 21:55] LABS: Amphetamine/Metha Screen,Urine Negative ng/ml (<1000); Barbiturates Screen,Urine Negative ng/ml (<200)
[2022-07-12 21:56] LABS: Cannabinoid Screen,Urine Positive ng/ml (<50)
[2022-07-12 22:57] LABS: Hyaline Casts,Urine Occasional #/lpf (0); Squamous Epithelial Cell,Urine Occasional #/hpf (0-5)
[2022-07-12 23:32] LABS: Cocaine Screen,Urine Negative ng/ml (<300); Methadone Screen,Urine Negative ng/ml (<300)
[2022-07-12 23:33] LABS: Opiate Screen,Urine Negative ng/ml (<300); Phencyclidine Screen,Urine Negative ng/ml (<25)
== END 2022-07-12 21:43 ==
PROVIDERS: Student in an Organized Health Care Education/Training Program; Emergency Provider Emergency Medicine; PCP Nurse Practitioner Family
DX: F10.921 Alcohol use, unspecified with intoxication delirium (principal); R45.1 Restlessness and agitation; F17.290 Nicotine dependence, other tobacco product, uncomplicated
CPT/HCPCS: 70450; 70486; 80053; 80305; 81001; 85025; 93005; 96361; 96372; 96374; 96375; 99285

== ENCOUNTER → 2022-12-24 23:31 | Outpatient (CLI) | payer MEDICAID, SELFPAY ==
[2022-12-24 18:36] LABS: Basophils # 0.1 K/mm3 (0-0.2); Basophils % 0.7 % (0.1-2.0); Eosinophils # 0.3 K/mm3 (0.0-0.4); Hematocrit 45.3 % (42.0-52.0); Hemoglobin 15.7 g/dL (14.1-18.0); Lymphocytes # 3.3 K/mm3 (0.7-4.5); Lymphocytes % 38.9 % (10-50); Mean Corpuscular HGB Conc 34.6 g/dL (31.8-35.4); Mean Corpuscular Hemoglobin 29.6 pg (27.0-31.2); Mean Corpuscular Volume 85.6 fl (80-94); Mean Platelet Volume 8.3 fl (7.4-10.4); Monocytes # 0.4 K/mm3 (0.1-1.0); Monocytes % 4.3 % (1.7-9.3); Neutrophils # 4.5 K/mm3 (1.8-7.8); Neutrophils % 53.1 % (37.0-80.0); Platelet Count 247 K/mm3 (142-424); Red Cell Distribution Width 13.1 % (11.5-17.5); White Blood Count 8.6 K/mm3 (4.8-10.8)
[2022-12-24 18:45] LABS: Alanine Aminotransferase 42 U/L (12-78); Albumin Level 4.5 g/dl (3.5-5.0); Albumin/Globulin Ratio 1.7 (1.1-1.8); Alkaline Phosphatase 61 U/L (38-126); Aspartate Amino Transferase 35 U/L (17-59); Bilirubin,Total 0.8 mg/dl (0.2-1.3); Blood Urea Nitrogen 18 mg/dl (9-20); Calcium 9.4 mg/dl (8.4-10.2); Chloride 103 mmol/L (98-107); Chol/HDL Ratio 5.1 (1-3.5); Cholesterol 183 mg/dl (140-200); Estimated Glomerular Filt Rate 132 ml/min (>60); GFR (African American) 159 ML/MIN (>60); Globulin 2.7 g/dL (1.3-3.2); Glucose 132 mg/dl (74-100); HDL Cholesterol 36 mg/dl (40-60); Potassium 3.9 mmoL/L (3.5-5.1); Sodium 140 mmol/L (136-145); Total Protein,Serum 7.2 g/dl (6.3-8.2); Triglycerides 199 mg/dl (30-150); VLDL Cholesterol 40 mg/dL (0-40)
[2022-12-24 18:57] LABS: Direct LDL Cholesterol 114.84 mg/dL (100-129); Hemoglobin A1C 5.3 % (4.0-6.0)
[2022-12-24 19:00] LABS: 25-OH Vitamin D, Total 39.8 ng/mL (30-100)
[2022-12-24 19:17] LABS: Thyroid Stimulating Hormone 0.57 uIU/mL (0.465-4.68)
[2022-12-24 19:28] LABS: Anion Gap 15.9 mEq/L (5-15); Carbon Dioxide 25 mmol/L (22.0-30.0)
[2022-12-27 11:11] LABS: Anti-Centromere B Antibodies <0.2 AI (0.0-0.9); Anti-DNA (DS) Ab Qn <1 IU/mL (0-9); Anti-Jo-1 <0.2 AI (0.0-0.9); Anti-Smith Antibody <0.2 AI (0.0-0.9); Antichromatin Antibodies <0.2 AI (0.0-0.9); Antiscleroderma-70 Antibodies <0.2 AI (0.0-0.9); RNP Antibodies <0.2 AI (0.0-0.9); Sjogren's Anti-SS-A <0.2 AI (0.0-0.9); Sjogren's Anti-SS-B <0.2 AI (0.0-0.9)
[2023-01-06 09:48] LABS: Rheumatoid Factor IGA < 7 U (<7)
== END ==
LOC: LAB.DROPOF 23:31
PROVIDERS: PCP Student in an Organized Health Care Education/Training Program; Visit Provider Student in an Organized Health Care Education/Training Program
DX: M25.60 Stiffness of unspecified joint, not elsewhere classified (principal); R73.9 Hyperglycemia, unspecified; E66.9 Obesity, unspecified; Z68.35 Body mass index [BMI] 35.0-35.9, adult; Z01.89 Encounter for other specified special examinations; Z13.29 Encounter for screening for other suspected endocrine disorder
CPT/HCPCS: 80053; 80061; 82306; 83036; 84443; 85025; 86225; 86235; 86431

== ENCOUNTER 2023-02-07 17:14 | Emergency (ER) | payer SELFPAY ==
--- NOTE | 2023-02-07 18:10 | EXP.UTC ---
Discharge Plan Disposition Patient Disposition: Home, Self-Care Condition: Good Prescriptions Prescriptions: New amoxicillin [amoxicillin] 875 mg tablet 875 mg PO Q12H Qty: 20 0RF vbfmkuzpgmhrgac-tnigobule-QU [Bromfed DM] 2-30-10 mg/5 mL Syrup 5 ml PO Q6H PRN (Reason: Cough) Qty: 240 0RF ondansetron 4 mg Tablet,Disintegrating 4 mg PO Q8H PRN (Reason: Nausea) Qty: 12 0RF No Action hydroxyzine HCl 25 mg tablet 25 mg PO Q8H Patient Comments: TAKE 1 TABLET BY MOUTH EVERY 8 HOURS FOR 10 DAYS trazodone 50 mg tablet 50 mg PO HS Patient Comments: TAKE 1 TABLET BY MOUTH EVERY NIGHT AT BEDTIME NEEDED divalproex 250 mg tablet,delayed release (DR/EC) 250 mg PO HS Patient Comments: TAKE 1 TABLET BY MOUTH ONCE DAILY AT BEDTIME Referrals Follow up/Referrals: Provider,Referral, MD [Primary Care Provider] - See instructions Activity Restrictions/Add. Instructions Additional Instructions/Restrictions: Drink plenty of fluids. Take tylenol or ibuprofen for pain or fever. Take the medications as directed. Follow up with your regular doctor. GO TO THE ER FOR ANY WORSENING SYMPTOMS Throw your tooth brush away and get a new one. Clinical Impressions Clinical Impression: Strep throat Stand Alone Forms Stand Alone Forms: Work/School Release Instructions Patient Instructions: Strep Throat, DI for Strep Throat, Amoxicillin Discharge ED Provider: Alejandro Garcias [facility] General Stated complaint: st cough pandey fever vomiting congestion Time Seen by Provider: 02/07/23 18:10 History of Present Illness Provider Complaint: He states that since yesterday he has had sore throat, cough, n/v/d. Related Data Home Medications Medication Instructions Recorded Confirmed divalproex 250 mg tablet,delayed 250 mg PO HS 12/24/22 12/24/22 release hydroxyzine HCl 25 mg tablet 25 mg PO Q8H 12/24/22 12/24/22 trazodone 50 mg tablet 50 mg PO HS 12/24/22 12/24/22 Previous Rx's Medication Instructions Recorded amoxicillin 875 mg tablet 875 mg PO Q12H #20 tabs 02/07/23 kgalcpklsejbspu-odupjaqpfzwskud-PC 5 ml PO Q6H PRN Cough #240 mL 12/11/23 2 mg-30 mg-10 mg/5 mL oral syrup (Bromfed DM) ondansetron 4 mg disintegrating 4 mg PO Q8H PRN Nausea #12 tabs 02/07/23 tablet Allergies Allergy/AdvReac Type Severity Reaction Status Date / Time ziprasidone [From Geodon] Allergy Unknown Verified 02/07/23 18:31 PFSH PFS Disclaimer: The information contained in this section may have been updated after the patient was seen, as this information can be updated by other users. 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 Manic bipolar I disorder Nausea and vomiting Panic attacks Patient new to provider Right flank pain Seizures Sprain of foot, left Vertigo Viral syndrome Vomiting Surgical History H/O elbow surgery Left Social History Smoking Status: Current every day smoker tobacco type: e-cigarettes alcohol intake: never substance use type: former substance user and marijuana current occupational status: other Travel in the last 8 weeks: None ROS Obtained: Yes All systems reviewed & no additional complaints except as documented Constitutional Constitutional: Reports chills and Reports fever(s) Eyes Eyes: Denies eye discharge ENT Ears, Nose, Mouth, and Throat: Reports as per HPI Cardiovascular Cardiovascular: Denies chest pain Respiratory Respiratory: Denies chest congestion and Reports cough Gastrointestinal Gastrointestingal: Reports nausea; Denies abdominal pain, constipation, cramping,
[2023-02-07 18:15] VITALS: BP 127/85; PULSE 86; RESP 18; TEMP 36.9; O2SAT 99; BMI 46.5
[2023-02-07 18:24] LABS: UTC Strep Screen (Rapid) Positive (Negative)
[2023-02-07 18:33] VITALS: BP 127/85; PULSE 86; RESP 18; TEMP 36.9; O2SAT 99
== END 2023-02-07 18:33 | disposition home or self-care (01) ==
PROVIDERS: Emergency Provider Nurse Practitioner Family
DX: J02.0 Streptococcal pharyngitis (principal); R07.0 Pain in throat; R51.9 Headache, unspecified; R50.9 Fever, unspecified; R05.9 Cough, unspecified; R09.81 Nasal congestion; R11.2 Nausea with vomiting, unspecified; F17.290 Nicotine dependence, other tobacco product, uncomplicated
CPT/HCPCS: 87880; 99212; 99214; G0463

== ENCOUNTER 2023-03-29 17:38 | Emergency (ER) | payer SELFPAY ==
[2023-03-29 18:20] VITALS: BP 112/72; PULSE 71; RESP 18; TEMP 37.4; O2SAT 98; BMI 32.8
[2023-03-29 18:42] LABS: UTC Influenza A Antigen Negative (Negative); UTC Influenza B Antigen Negative (Negative)
--- NOTE | 2023-03-29 18:50 | EXP.UTC ---
Discharge Plan Disposition Patient Disposition: Home, Self-Care Condition: Good Prescriptions Prescriptions: New ondansetron 4 mg tablet,disintegrating 4 mg PO Q8H PRN (Reason: nausea and vomiting) Qty: 10 0RF Referrals Follow up/Referrals: Provider,Referral, MD [Primary Care Provider] - See instructions Activity Restrictions/Add. Instructions Additional Instructions/Restrictions: Drink extra fluids with and between meals. If you have difficulty drinking, try very small amounts of water or suck on ice chips. ? Avoid fruit juices, as these do not replace minerals and can actually increase diarrhea. ? Children and adults can use sports drinks to replenish electrolytes. Younger children and infants should use products formulated for children, like oral rehydration solutions. ? Eat food in small amounts and let your stomach recover. ? Get lots of rest. You may feel tired or weak. ? No greasy or fried foods for the next 24-48 hours BRAT diet Bananas Rice Apples and [place] ? Make sure to drink plenty of liquids ? Return if needed ? Straight to ER if any life threatening symptoms ? Zofran as prescribed ? Follow up with family doctor in the next 48-72 hours if no improvement or any worsening of symptoms You were tested for today for Flu/COVID19 your test result should be back in the next few hours, you may check your results on the [facility] [employer] [facility] Portal if your COVID or Influenza is positive you must Quarantine for 5 days Clinical Impressions Clinical Impression: Viral syndrome Stand Alone Forms Stand Alone Forms: Work/School Release Instructions Patient Instructions: Nausea and Vomiting-Adult, Ondansetron Discharge ED Provider: [place] Salcedo [facility] [place] General Stated complaint: Sneezing,N/V Mode of Arrival: Ambulatory Source of Information: Patient Limitations: No Limitations Time Seen by Provider: 03/29/23 18:50 Description of Symptoms (Recalled from Triage Doc. by RN): PATIENT C/O COUGH, VOMITING, AND SNEEZING SINCE TUESDAY HEENT Symptoms (Recalled from RN notes): Yes Resp Symptoms (Recalled from RN notes): Yes Skin Symptoms (Recalled from RN notes): No MS Symptoms (Recalled from RN notes): No Functional Status (Recalled from RN notes): WNL History of Present Illness Provider Complaint: Patient states that he hasnt felt well since Tuesday States that he has been having sneezing, nasal congestion, cough and vomiting States that today he was still not feeling any better so he came in worried he may have flu or COVID Related Data Previous Rx's Medication Instructions Recorded ondansetron 4 mg disintegrating 4 mg PO Q8H PRN nausea and 03/29/23 tablet vomiting #10 tabs Allergies Allergy/AdvReac Type Severity Reaction Status Date / Time ziprasidone [From Светлана] Allergy Unknown Verified 02/07/23 18:31 Worker's Comp Is this a Worker's Comp case?: No [facility] Disclaimer: The information contained in this section may have been updated after the patient was seen, as this information can be updated by other users. 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 Manic bipolar I disorder Nausea and vomiting Panic attacks Patient new to provider Right flank pain Seizures Sprain of foot, left Vertigo Viral syndrome Vomiting Surgical History H/O elbow surgery Left Social History Smoking Status: Current every day smoker tobacco type: e-cigarettes alcohol intake: never substance use type: former substance user and marijuana current occupational status: other Travel in the last 8 weeks: None ROS Obtained: Yes All systems reviewed & no additional complaints except as documented and Yes Systems reviewed as appropriate & no additional complaints except as documented Constitutional Constitutional: Reports system reviewed and no additional complaints, except as documented and Reports as per HPI ENT Ears, Nose, Mouth, and Throat: Reports system reviewed and no additional complaints, except as documented, Reports as per HPI, Reports nasal congestion and Reports nasal discharge Cardiovascular Cardiovascular: Reports system reviewed and no additional complaints, except as documented and Reports as per HPI Respiratory Respiratory: Reports system reviewed and no additional complaints, except as documented, Reports as per HPI and Reports cough Gastrointestinal Gastrointestingal: Reports system reviewed and no additional complaints, except as documented, as per HPI, nausea and vomiting Physical Exam General General appearance: alert and in no apparent distress ENT ENT exam: Present mucous membranes moist Expanded ENT Exam Nose exam: Absent sinus tenderness Throat exam: Present normal inspection Respiratory Respiratory exam: Present normal lung sounds bilaterally; Absent respiratory distress or wheezes Cardiovascular Cardiovascular exam: Present regular rate, normal rhythm and normal heart sounds Abdominal Exam Abdominal exam: Present soft and normal bowel sounds; Absent distention or tenderness Neurological Exam Neurological exam: Present alert, oriented X3 and normal gait Medical Decision Making Aden Inquiry Pt receiving controlled substance: No Aden was queried for this patient: No Vital Signs: 03/29/23 18:20 Temperature 99.3 F Temperature Source Oral Pulse Rate [Left Brachial] 71 Respiratory Rate 18 Blood Pressure [Left Arm] 112/72 Blood Pressure Mean [Left Arm] 85 Blood Pressure Source [Left Arm] Automatic Cuff Blood Pressure Position [Left Arm] Sitting 02 Sat by Pulse Oximetry 98 Oxygen Delivery Method Room Air Lab Data Lab results reviewed: Yes I reviewed the patient's lab results. Lab Results 03/29/23 18:27: Influenza Type A Ag Negative, Influenza Type B Ag Negative
[2023-03-29 19:01] VITALS: BP 112/72; PULSE 71; RESP 18; TEMP 37.4; O2SAT 98
[2023-03-29 19:07] LABS: Coronavirus 19, PCR Not Detected (NotDetected); Influenza A, PCR Not Detected (NotDetected); Influenza B, PCR Not Detected (NotDetected)
== END 2023-03-29 19:02 | disposition home or self-care (01) ==
PROVIDERS: Emergency Provider Nurse Practitioner
DX: R11.2 Nausea with vomiting, unspecified (principal); R05.9 Cough, unspecified; R09.81 Nasal congestion; B34.9 Viral infection, unspecified; F17.290 Nicotine dependence, other tobacco product, uncomplicated
CPT/HCPCS: 87636; 87804; 99212; 99214; G0463

== ENCOUNTER 2023-07-14 18:36 | Emergency (ER) | payer SELFPAY ==
[2023-07-14 18:36] VITALS: BP 118/89; PULSE 85; RESP 18; TEMP 36.8; O2SAT 98; BMI 33.3
--- NOTE | 2023-07-14 18:41 | ED_ITS ---
<Statement entered by Sepideh Cannon DO - 07/14/23 23:14> I was consulted by the BECCA, and we discussed the complexity of the problems being addressed. I approved the treatment and management plan for this patient's care in the emergency department, thus performing a substantive portion of the medical decision making. Sepideh Cannon DO Discharge Plan Disposition Patient Disposition: Home, Self-Care Condition: Good Referrals Follow up/Referrals: Latoya Schulz APRN [Nurse Practitioner] - See instructions Provider,Referral, [Primary Care Provider] - See instructions Activity Restrictions/Add. Instructions Additional Instructions/Restrictions: Please call make an appointment with behavioral health as you need better control of your anxiety/panic disorder. Follow-up with your PCP as needed. As we have discussed there is a significant risk of worsening of your symptoms with ingestion of illicit substances and highly recommend avoidance. Clinical Impressions Clinical Impression: Acute anxiety Discharge ED Provider: Sepideh Cannon General Adult HPI <DANIELITO Rowland - Last Filed: 07/14/23 20:06> General Chief complaint: Anxiety Stated complaint: Anxiety/Possible seizures Time Seen by Provider: 07/14/23 18:41 History of Present Illness HPI narrative: Patient presents for evaluation of a possible seizure. Patient states that he frequently gets anxiety and panic attacks and sometimes when he has a really bad panic attack he has what he ultimately describes as carpal pedal spasms but to him he thinks that they could be seizures. Patient states that today he was having a panic attack and began breathing really fast and passed out. His bystander friends saw the syncopal episode and called EMS. Patient also admits to polysubstance abuse but last use was yesterday of methamphetamine. Patient currently denies chest pain fever chills hemoptysis hematochezia melena nausea vomiting diarrhea. Patient's [place] Coma Score is currently 15. Related Data Allergies Allergy/AdvReac Type Severity Reaction Status Date / Time ziprasidone [From Geodon] Allergy Unknown Verified 02/07/23 18:31 PFSH <DANIELITO Rowland - Last Filed: 07/14/23 20:06> PFS Disclaimer: The information contained in this section may have been updated after the patient was seen, as this information can be updated by other users. 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 Manic bipolar I disorder Nausea and vomiting Panic attacks Patient new to provider Right flank pain Seizures Sprain of foot, left Vertigo Viral syndrome Vomiting Surgical History H/O elbow surgery Left Social History Smoking Status: Current every day smoker tobacco type: e-cigarettes alcohol intake: never substance use type: former substance user and marijuana current occupational status: other Travel in the last 8 weeks: None <DANIELITO Rowland - Last Filed: 07/14/23 20:06> ROS Obtained: Yes Systems reviewed as appropriate & no additional complaints except as documented Physical Exam <DANIELITO Rowland - Last Filed: 07/14/23 20:06> General General appearance: alert and in no apparent distress Eye Eye exam: Present normal appearance and PERRL; Absent nystagmus ENT ENT exam: Present normal exam and normal oropharynx Respiratory Respiratory exam: Present normal lung sounds bilaterally and respiratory distress; Absent wheezes Cardiovascular Cardiovascular exam: Present regular rate and normal rhythm Extremities Exam Extremities exam: Present normal inspection and full ROM Back Exam Back exam: Present normal inspection and full ROM; Absent tenderness Neurological Exam Neurological exam: Present alert, oriented X3 and CN II-XII intact Psychiatric Psychiatric exam: Present normal affect and normal mood Skin Skin exam: Present warm, dry and normal color Medical Decision Making <DANIELITO Rowland Last Filed: 07/14/23 20:06> Medical Records Medical records reviewed: Yes I reviewed the patient's medical records. Aden Inquiry Pt receiving controlled substance: No Vital Signs: 07/14/23 18:36 07/14/23 19:02 07/14/23 19:10 Temperature 98.2 F Temperature Source Oral Pulse Rate 160 H 108 H Pulse Rate [Right] 85 Respiratory Rate 18 24 20 Blood Pressure 97/70 L Blood Pressure [Right Arm] 118/89 Blood Pressure Mean 78 Blood Pressure Mean [Right Arm] 98 Blood Pressure Source Blood Pressure Position 02 Sat by Pulse Oximetry 98 99 99 Oxygen Delivery Method Room Air Room Air Room Air 07/14/23 19:31 07/14/23 20:10 Temperature 98.2 F Temperature Source Oral Pulse Rate 70 69 Pulse Rate [Right] Respiratory Rate 15 16 Blood Pressure 126/69 117/81 Blood Pressure [Right Arm] Blood Pressure Mean 88 Blood Pressure Mean [Right Arm] Blood Pressure Source Automatic Cuff Blood Pressure Position Sitting 02 Sat by Pulse Oximetry 97 Oxygen Delivery Method Room Air Room Air Orders (Tests/Meds): ED MEDICATIONS Discontinued Medications Generic Name Dose Route Start Last Admin Trade Name Freq PRN Reason Stop Dose Admin Hydroxyzine HCl 50 mg 07/14/23 18:47 07/14/23 19:12 Hydroxyzine 50mg/Ml Vial IM 07/14/23 18:48 Not Given ONCE ONE Sodium Chloride 1,000 mls @ 999 mls/hr 07/14/23 19:05 07/14/23 19:11 Sod Chlor 0.9% 1000ml Bag IV 07/14/23 20:05 999 mls/hr .Q1H1M ONE Administration Lorazepam 2 mg 07/14/23 19:05 07/14/23 19:06 Lorazepam 2mg/Ml Vial IV 07/14/23 19:06 2 mg ONCE ONE Administration Sodium Chloride 10 ml 07/14/23 19:05 Sodium Chloride 0.9% 10ml Vial IV 08/13/23 19:04 NEEDED PRN to Dilute Lorazepam inj Medical Decision Narrative: In summary patient is a 32-year-old male who presents to the emergency department for evaluation of possible seizure. However per patient's own history he has significant panic disorder and frequent panic attacks and he was experiencing 1 today in which he was hyperventilating and then passed out. He suffered no injury and immediately regained consciousness however his bystander friends called EMS in the interval. Patient is hemodynamically stable upon arrival, afebrile. Physical exam is remarkable only for slight anxiety but patient is awake alert oriented [place] Coma Score 15 and cooperative with exam and has no focal deficits and his physical exam is unremarkable. Differential diagnosis includes cardiogenic syncope versus vasovagal syncope and panic attack. Initial workup will be conducted with twelve-lead EKG. Initial interventions include Vistaril continuous pulse oximetry and continuous cardiac monitoring. Patient actually had the exact same event while in the ER which involved carpopedal spasm that was preceded by hyperventilation however patient did not have a syncopal event. Patient reported significant extremity cramping and pain and had a sustained heart rate greater than 150 while he was breathing more than 30 times a minute. EKG showed sinus tachycardia without evidence of ACS and we medicated with 2 mg of Ativan and patient was able to de-escalate his breathing and all of his symptoms abated at this same time including now a normal heart rate. Given this patient is now asymptomatic and appropriate for discharge. I have advised the patient to discontinue utilizing methamphetamine or stimulants of any kind, I have advised the patient to follow-up with behavioral health to establish a better regimen for his anxiety disorder. Patient verbalized understanding. <Sepideh Cannon, DO - Last Filed: 07/14/23 23:14> Vital Signs: 07/14/23 18:36 07/14/23 19:02 07/14/23 19:10 Temperature 98.2 F Temperature Source Oral Pulse Rate 160 H 108 H Pulse Rate [Right] 85 Respiratory Rate 18 24 20 Blood Pressure 97/70 L Blood Pressure [Right Arm] 118/89 Blood Pressure Mean 78 Blood Pressure Mean [Right Arm] 98 Blood Pressure Source Blood Pressure Position 02 Sat by Pulse Oximetry 98 99 99 Oxygen Delivery Method Room Air Room Air Room Air 07/14/23 19:31 07/14/23 20:10 Temperature 98.2 F Temperature Source Oral Pulse Rate 70 69 Pulse Rate [Right] Respiratory Rate 15 16 Blood Pressure 126/69 117/81 Blood Pressure [Right Arm] Blood Pressure Mean 88 Blood Pressure Mean [Right Arm] Blood Pressure Source Automatic Cuff Blood Pressure Position Sitting 02 Sat by Pulse Oximetry 97 Oxygen Delivery Method Room Air Room Air Orders (Tests/Meds): ED MEDICATIONS Discontinued Medications Generic Name Dose Route Start Last Admin Trade Name Freq PRN Reason Stop Dose Admin Hydroxyzine HCl 50 mg 07/14/23 18:47 07/14/23 19:12 Hydroxyzine 50mg/Ml Vial IM 07/14/23 18:48 Not Given ONCE ONE Sodium Chloride 1,000 mls @ 999 mls/hr 07/14/23 19:05 07/14/23 19:11 Sod Chlor 0.9% 1000ml Bag IV 07/14/23 20:05 999 mls/hr .Q1H1M ONE Administration Lorazepam 2 mg 07/14/23 19:05 07/14/23 19:06 Lorazepam 2mg/Ml Vial IV 07/14/23 19:06 2 mg ONCE ONE Administration Sodium Chloride 10 ml 07/14/23 19:05 Sodium Chloride 0.9% 10ml Vial IV 08/13/23 19:04 NEEDED PRN to Dilute Lorazepam inj ECG Data Tracing #1: I reviewed this ECG and interpreted as documented below: Sinus tachycardia with a ventricular rate of [address] changes concerning for ischemia. Normal axis. Initiated on this EKG was obtained during an active panic attack in which the patient had acutely become tachycardic after having normal rate and rhythm previously. This is the same as his episodes that he had been having at home, consistent with panic attack, carpopedal spasms, and hyperventilation. ECG initial impression date: 07/14/23 ECG initial impression time: 19:07 Medical Decision Narrative: In summary patient is a 32-year-old male who presents to the emergency department for evaluation of possible seizure. However per patient's own hi story he has significant panic disorder and frequent panic attacks and he was experiencing 1 today in which he was hyperventilating and then passed out. He suffered no injury and immediately regained consciousness however his bystander friends called EMS in the interval. Patient is hemodynamically stable upon arrival, afebrile. Physical exam is remarkable only for slight anxiety but patient is awake alert oriented [place] Coma Score 15 and cooperative with exam and has no focal deficits and his physical exam is unremarkable. Differential diagnosis includes cardiogenic syncope versus vasovagal syncope and panic attack. Initial workup will be conducted with twelve-lead EKG. Initial interventions include Vistaril continuous pulse oximetry and continuous cardiac monitoring. Patient actually had the exact same event while in the ER which involved carpopedal spasm that was preceded by hyperventilation however patient did not have a syncopal event. Patient reported significant extremity cramping and pain and had a sustained heart rate greater than 150 while he was breathing more than 30 times a minute. EKG showed sinus tachycardia without evidence of ACS and we medicated with 2 mg of Ativan and patient was able to de-escalate his breathing and all of his symptoms abated at this same time including now a normal heart rate. Given this patient is now asymptomatic and appropriate for discharge. I have advised the patient to discontinue utilizing methamphetamine or stimulants of any kind, I have advised the patient to follow-up with behavioral health to establish a better regimen for his anxiety disorder. Patient verbalized understanding. Davis DO: Patient symptoms for classic panic attack. He hyperventilated to the point of carpopedal spasms and then became lightheaded. Once he calmed himself, his tachycardia improved significantly. His symptoms also significantly improved with Ativan. Critical Care <DANIELITO Rowland - Last Filed: 07/14/23 20:06> Critical Care Time Critical Care Time: No
[2023-07-14 19:02] VITALS: PULSE 160; RESP 24; O2SAT 99
[2023-07-14] MEDS: LORazepam 2MG/ML VIAL 2 MG IV (19:06)
--- NOTE | 2023-07-14 19:06 | ECG_ITS ---
APPROVED REPORT Exam: Resting ECG HR:127 bpm ECG Measurements Heart Rate 127 AXES SD 138 P 71 QRSd 90 QRS 78 QT 325 T 68 QTc 400 Conclusion SINUS TACHYCARDIA No acute ST changes concerning for ischemia. Normal axis and intervals. Electronically signed by : ROLANDO SCHMITZ, 07/14/2023 23:24:40
[2023-07-14 19:10] VITALS: BP 97/70; PULSE 108; RESP 20; O2SAT 99
[2023-07-14] MEDS: 0.9 % SODIUM CHLORIDE 1000ML 1,000 ML 999 ML IV (19:11)
[2023-07-14 19:31] VITALS: BP 126/69; PULSE 70; RESP 15; O2SAT 97
[2023-07-14 20:10] VITALS: BP 117/81; PULSE 69; RESP 16; TEMP 36.8; O2SAT 98
== END 2023-07-14 20:09 | disposition home or self-care (01) ==
PROVIDERS: Emergency Provider Emergency Medicine
DX: F41.0 Panic disorder [episodic paroxysmal anxiety] (principal); R00.0 Tachycardia, unspecified; F41.1 Generalized anxiety disorder; R55 Syncope and collapse; F17.210 Nicotine dependence, cigarettes, uncomplicated; F15.90 Other stimulant use, unspecified, uncomplicated
CPT/HCPCS: 93005; 96361; 96372; 96374; 99284

== ENCOUNTER 2023-12-03 17:33 | Emergency (ER) | payer OTHER, SELFPAY ==
[2023-12-03 17:47] VITALS: BP 124/80; PULSE 77; RESP 20; TEMP 37.2; O2SAT 96; BMI 34.7
--- NOTE | 2023-12-03 18:51 | ED_ITS ---
Discharge Plan Disposition Patient Disposition: Home, Self-Care Condition: Good Prescriptions Prescriptions: New ibuprofen 800 mg tablet 800 mg PO TID PRN (Reason: pain) Qty: 30 0RF Rx Instructions: May start 12/04/23. No Action divalproex 250 mg tablet,delayed release (DR/EC) 250 mg PO DAILY trazodone 50 mg tablet 50 mg PO DAILY Referrals Follow up/Referrals: Provider,Referral, MD [Primary Care Provider] - See instructions Activity Restrictions/Add. Instructions Additional Instructions/Restrictions: Do not take Ibuprofen today. May start tomorrow. Call back in am for urine results. Clinical Impressions Clinical Impression: Acute low back pain with sciatica Qualifiers: Back pain laterality: bilateral Sciatica laterality: sciatica of left side Qualified Code(s): M54.42 - Lumbago with sciatica, left side Stand Alone Forms Stand Alone Forms: Work/School Release Instructions Patient Instructions: DI for Low Back Pain, DI for Back Pain With Sciatica Print Language Print Language: Irish Discharge ED Provider: Abida Maravilla [facility] General Stated complaint: Lower back pain radiating to hips Mode of Arrival: Ambulatory Source of Information: Patient Time Seen by Provider: 12/03/23 18:51 Description of Symptoms (Recalled from Triage Doc. by RN): GENERALIZED LOW BACK PAIN, INTO HIPS, RATES PAIN 7/10, HAS NOT HAD MEDICATION FOR IT TODAY. ALSO STATES HE HAD KIDNEY STONES 2 MONTHS AGO AND IS UNSURE IF HE PASSED THEM. HEENT Symptoms (Recalled from RN notes): No Resp Symptoms (Recalled from RN notes): No Skin Symptoms (Recalled from RN notes): No MS Symptoms (Recalled from RN notes): Yes Functional Status (Recalled from RN notes): LOWER BACK PAIN, INABLITY TO STAY AT WORK TODAY History of Present Illness Provider Complaint: Pt reports that his low back hurt and the pain ran down into the left buttock. He states that he had to leave work as the pain was intense, rating 7/10. Pt states he has taken Tylenol/Motrin for his symptoms. Related Data Home Medications ?Medication ?Instructions ?Recorded ?Confirmed divalproex 250 mg tablet,delayed 250 mg PO DAILY 12/03/23 12/03/23 release trazodone 50 mg tablet 50 mg PO DAILY 12/03/23 12/03/23 Previous Rx's ?Medication ?Instructions ?Recorded ibuprofen 800 mg tablet 800 mg PO TID PRN pain #30 tabs 12/03/23 Allergies Allergy/AdvReac Type Severity Reaction Status Date / Time ziprasidone [From Luci[place]] Allergy Unknown Verified 02/07/23 18:31 Worker's Comp Is this a Worker's Comp case?: No [facility] Disclaimer: The information contained in this section may have been updated after the patient was seen, as this information can be updated by other users. 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 Manic bipolar I disorder Nausea and vomiting Panic attacks Patient new to provider Right flank pain Seizures Sprain of foot, left Vertigo Viral syndrome Vomiting Surgical History H/O elbow surgery Left Social History Smoking Status: Current every day smoker tobacco type: e-cigarettes alcohol intake: never substance use type: former substance user and marijuana current occupational status: other Travel in the last 8 weeks: None ROS Obtained: Yes All systems reviewed & no additional complaints except as documented Constitutional Constitutional: Reports system reviewed and no additional complaints, except as documented Eyes Eyes: Reports system reviewed and no additional complaints, except as documented ENT Ears, Nose, Mouth, and Throat: Reports system reviewed and no additional complaints, except as documented Cardiovascular Cardiovascular: Reports system reviewed and no additional complaints, except as documented Respiratory Respiratory: Reports system reviewed and no additional complaints, except as documented Gastrointestinal Gastrointestingal: Reports system reviewed and no additional complaints, except as documented Genitourinary Male Genitourinary: Reports system reviewed and no additional complaints, except as documented Musculoskeletal Musculoskeletal: Reports system reviewed and no additional complaints, except as documented, Reports back pain, Reports myalgias, Reports radiating pain into limb and Reports stiffness Integumentary/Breasts Skin/Breast: Reports system reviewed and no additional complaints, except as documented Neurologic Neurologic: Reports system reviewed and no additional complaints, except as documented Endocrine Endocrine: Reports system reviewed and no additional complaints, except as documented Hematologic/Lymphatic Henatologic/Lymphatic: Reports system reviewed and no additional complaints, except as documented Allergic/Immunologic Allergic/Immunologic: Reports system reviewed and no additional complaints, except as documented Physical Exam General General appearance: alert and in no apparent distress Head Head exam: atraumatic and normocephalic Eye Eye exam: Present normal appearance ENT ENT exam: Present normal exam, normal oropharynx and mucous membranes moist Neck Neck exam: Present normal inspection Chest Chest inspection: Present normal inspection and symmetric chest wall rise Respiratory Respiratory exam: Present normal lung sounds bilaterally Cardiovascular Cardiovascular exam: Present regular rate, normal rhythm and normal heart sounds Abdominal Exam Abdominal exam: Present soft and normal bowel sounds Extremities Exam Extremities exam: Present normal inspection Back Exam Back exam: Present paraspinal tenderness, vertebral tenderness (L4-5) and sciatic notch tenderness (L) Neurological Exam Neurological exam: Present alert and oriented X3 Psychiatric Psychiatric exam: Present normal affect and normal mood Skin Skin exam: Present warm, dry and intact Lymphatic Lymphatic Findings: no adenopathy Medical Decision Making Medical Records Screening: Per USPSTF and CDC recommendations, given the prevalence of disease in our region, it is our hospital?s policy to screen for HIV and viral Hepatitis for all patients aged 18 and over and those with ongoing risk factors. Aden Inquiry Pt receiving controlled substance: No Aden was queried for this patient: No Vital Signs: 12/03/23 17:47 Temperature 98.9 F Temperature Source Oral Pulse Rate [Left Radial] 77 Respiratory Rate 20 Blood Pressure [Left Arm] 124/80 Blood Pressure Mean [Left Arm] 94 02 Sat by Pulse Oximetry 96 Orders (Tests/Meds): ORDERS Category Date Time Status UA [Urinalysis and Microscopic] Stat Lab 12/03/23 17:54 Uncollected
[2023-12-03] MEDS: KETOROLAC 60MG/2ML VIAL 60 MG IM (18:59)
[2023-12-03] MEDS: DEXAMETHASONE 4MG/ML 1ML VIAL 4 MG IM (18:59)
[2023-12-03 19:07] VITALS: BP 124/80; PULSE 77; RESP 20; TEMP 37.2
[2023-12-03 19:12] LABS: Microscopic, Urine URINE MICROSCOPIC (MICROSCOPIC)
[2023-12-03 19:20] LABS: Bilirubin,Urine Negative (Negative); Blood, Urine Negative (Negative); Color,Urine YELLOW (Yellow); Glucose,Urine (UA) Negative (Negative); Ketones,Urine Negative (Negative); Leukocyte Esterase,Urine Negative (Negative); Nitrate,Urine Negative (Negative); PH,Urine 7.5 (5.0-8.5); Protein,Urine Negative (Negative); Specific Gravity, Urine 1.025 (1.005-1.030); Urobilinogen,Urine 0.2 EU/dl (0.2)
[2023-12-03 19:45] LABS: Appearance,Urine Cloudy (Clear)
[2023-12-03 20:45] LABS: Squamous Epithelial Cell,Urine Occasional #/hpf (0-5); WBC,Urine Occasional #/hpf (0-3)
[2023-12-03 20:46] LABS: Amorphous Sediment,Urine 3+ /lpf; Bacteria,Urine 1+ /lpf
== END 2023-12-03 19:13 | disposition home or self-care (01) ==
PROVIDERS: Emergency Provider Nurse Practitioner Family
DX: M54.42 Lumbago with sciatica, left side (principal)
CPT/HCPCS: 81001; 96372; 99213; G0381; J1100; J1885

== ENCOUNTER 2023-12-18 19:16 | Emergency (ER) | payer OTHER, SELFPAY ==
[2023-12-18 19:26] VITALS: BP 135/71; PULSE 82; RESP 20; TEMP 36.6; O2SAT 97; BMI 33.3
--- NOTE | 2023-12-18 19:52 | ED_ITS ---
Discharge Plan Disposition Patient Disposition: Home, Self-Care Condition: Good Prescriptions Prescriptions: New cyclobenzaprine 10 mg Tablet 10 mg PO BID PRN (Reason: Muscle Spasm) Qty: 20 0RF methylprednisolone 4 mg Tablets,Dose Pack 4 mg PO DIRECTED 6 Days Qty: 21 0RF Rx Instructions: Take 1 pack as directed for 6 days No Action divalproex 250 mg tablet,delayed release (DR/EC) 250 mg PO DAILY trazodone 50 mg tablet 50 mg PO DAILY ibuprofen 800 mg tablet 800 mg PO TID PRN (Reason: pain) Qty: 30 0RF Rx Instructions: May start 12/04/23. Referrals Follow up/Referrals: Ely Fuchs APRN [Primary Care Provider] - See instructions Activity Restrictions/Add. Instructions Additional Instructions/Restrictions: Go home and rest. It would be best if you rested tomorrow too. No heavy lifting & No twisting for the next few days. Take the oral medications as directed. The muscle relaxer (cyclobenzaprine--Flexeril) will make you drowsy, so don't drive or operate heavy machinery after taking it. Don't take the flexeril with any other muscle relaxers. They will make you too drowsy. Don't start the oral steroids (medrol dose pack) until tomorrow, since you had the shots in here today. Follow up with your regular doctor. GO TO THE ER FOR ANY WORSENING SYMPTOMS OR CONCERN, ESPECIALLY BOWEL OR BLADDER ISSUES, SADDLE AREA NUMBNESS, FEVER, ETC Clinical Impressions Clinical Impression: Low back pain Qualifiers: Chronicity: chronic Back pain laterality: bilateral Sciatica presence: with sciatica Sciatica laterality: bilateral sciatica Qualified Code(s): M54.42 - Lumbago with sciatica, left side Stand Alone Forms Stand Alone Forms: Work/School Release Instructions Patient Instructions: Low Back Pain, DI for Low Back Pain, Ketorolac Injection, Dexamethasone Injection Print Language Print Language: Latvian Discharge ED Provider: Alejandro Garcias [facility] General Stated complaint: lower back pain Mode of Arrival: Ambulatory Source of Information: Patient Time Seen by Provider: 12/18/23 19:52 Description of Symptoms (Recalled from Triage Doc. by RN): LOWER BACK PAIN HEENT Symptoms (Recalled from RN notes): No Resp Symptoms (Recalled from RN notes): No Skin Symptoms (Recalled from RN notes): No MS Symptoms (Recalled from RN notes): Yes Functional Status (Recalled from RN notes): WNL History of Present Illness Provider Complaint: He states that he has had low back pain for the past 2 days. 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 He denies any urinary and bowel complaints. He denies any saddle area numbness. Related Data Home Medications ?Medication ?Instructions ?Recorded ?Confirmed divalproex 250 mg tablet,delayed 250 mg PO DAILY 12/03/23 12/18/23 release trazodone 50 mg tablet 50 mg PO DAILY 12/03/23 12/18/23 Previous Rx's ?Medication ?Instructions ?Recorded ibuprofen 800 mg tablet 800 mg PO TID PRN pain #30 tabs 12/03/23 cyclobenzaprine 10 mg tablet 10 mg PO BID PRN Muscle Spasm #20 12/18/23 tabs methylprednisolone 4 mg tablets in 4 mg PO DIRECTED 6 days #21 tabs 12/18/23 a dose pack Allergies Allergy/AdvReac Type Severity Reaction Status Date / Time ziprasidone [From Светлана] Allergy Unknown Verified 02/07/23 18:31 Worker's Comp Is this a Worker's Comp case?: No [facility] Disclaimer: The information contained in this section may have been updated after the patient was seen, as this information can be updated by other users. 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 Manic bipolar I disorder Nausea and vomiting Panic attacks Patient new to provider Right flank pain Seizures Sprain of foot, left Vertigo Viral syndrome Vomiting Surgical History H/O elbow surgery Left Social History Smoking Status: Current every day smoker tobacco type: e-cigarettes alcohol intake: never substance use type: former substance user and marijuana current occupational status: other Travel in the last 8 weeks: None ROS Obtained: Yes All systems reviewed & no additional complaints except as documented Constitutional Constitutional: Denies chills and Denies fever(s) Eyes Eyes: Denies eye discharge ENT Ears, Nose, Mouth, and Throat: Denies dizziness, Denies otalgia and Denies sore throat Cardiovascular Cardiovascular: Denies chest pain Respiratory Respiratory: Denies shortness of breath, Denies chest congestion, Denies cough, Denies stridor and Denies wheezing Gastrointestinal Gastrointestingal: Denies nausea or vomiting Musculoskeletal Musculoskeletal: Reports as per HPI and Denies numbness Integumentary/Breasts Skin/Breast: Denies rash Neurologic Neurologic: Denies dizziness, Denies numbness, Denies paresthesias and Denies radicular pain Allergic/Immunologic Allergic/Immunologic: Denies wheezing Physical Exam General General appearance: alert and in no apparent distress Head Head exam: atraumatic, normocephalic and normal inspection Eye Eye exam: Present normal appearance, PERRL and EOMI ENT ENT exam: Present normal exam, normal oropharynx, mucous membranes moist, TM's normal bilaterally and normal external ear exam Neck Neck exam: Present normal inspection, full ROM and trachea midline; Absent meningismus or lymphadenopathy Chest Chest inspection: Present normal inspection and symmetric chest wall rise; Absent tenderness Respiratory Respiratory exam: Present normal lung sounds bilaterally; Absent respiratory distress Cardiovascular Cardiovascular exam: Present regular rate and normal rhythm; Absent JVD Abdominal Exam Abdominal exam: Present soft and normal bowel sounds; Absent distention, tenderness or guarding Extremities Exam Extremities exam: Present normal inspection, full ROM and normal capillary refi ll; Absent calf tenderness Back Exam Back exam: Present normal inspection and full ROM; Absent tenderness, CVA tenderness (R), CVA tenderness (L) or muscle spasm Neurological Exam Neurological exam: Present alert, oriented X3, CN II-XII intact, normal gait and reflexes normal; Absent motor sensory deficit Expanded Neurological Exam Speech: Present fluid speech Cranial nerves: Normal: EOM function (II, III, IV, ), facial sensation (V), facial palsy (VII), gag reflex (IX), spinal accessory function (XI) and tongue deviation (XII) Cerebellar function: normal gait Motor strength - LUE: 5/5 Motor strength - RUE: 5/5 Motor strength - LLE: 5/5 Motor strength - RLE: 5/5 Sensory exam upper extremity: Normal: light touch and 2 point discrimination Sensory exam lower extremity: Normal: light touch and 2 point discrimination DTR: 2+: biceps (L), biceps (R), patellar (L), patellar (R), Achilles tendon (L) and Achilles tendon (R) Spinal cord function: Absent saddle anesthesia Psychiatric Psychiatric exam: Present normal affect and normal mood Skin Skin exam: Present warm, dry, intact and normal color Lymphatic Lymphatic Findings: no adenopathy Medical Decision Making Medical Records Medical records reviewed: No I reviewed the patient's medical records. Screening: Per USPSTF and CDC recommendations, given the prevalence of disease in our region, it is our hospital?s policy to screen for HIV and viral Hepatitis for all patients aged 18 and over and those with ongoing risk factors. Aden Inquiry Pt receiving controlled substance: No Vital Signs: 12/18/23 19:26 Temperature 97.8 F Temperature Source Oral Pulse Rate [Right Radial] 82 Respiratory Rate 20 Blood Pressure [Left Arm] 135/71 Blood Pressure Mean [Left Arm] 92 02 Sat by Pulse Oximetry 97 Orders (Tests/Meds): ED MEDICATIONS Generic Name Dose Route Start Last Admin Trade Name Waqasq PRN Reason Stop Dose Admin Dexamethasone Sodium Phosphate 8 mg 12/18/23 19:46 Dexamethasone 4mg/Ml 1ml Vial IM 12/18/23 19:47 ONCE ONE Ketorolac Tromethamine 60 mg 12/18/23 19:46 Ketorolac 60mg/2ml Vial IM 12/18/23 19:47 ONCE ONE
[2023-12-18] MEDS: KETOROLAC 60MG/2ML VIAL 60 MG IM (19:53)
[2023-12-18] MEDS: DEXAMETHASONE 4MG/ML 1ML VIAL 8 MG IM (19:53)
[2023-12-18 19:58] VITALS: BP 135/71; PULSE 82; RESP 20; TEMP 36.6
== END 2023-12-18 20:05 | disposition home or self-care (01) ==
PROVIDERS: Emergency Provider Nurse Practitioner Family; PCP Nurse Practitioner Family
DX: M54.42 Lumbago with sciatica, left side (principal); M54.50 Low back pain, unspecified
CPT/HCPCS: 99212; G0381; J1100; J1885

== ENCOUNTER 2024-12-16 17:06 | Emergency (ER) | payer OTHER, SELFPAY ==
--- OUTSIDE RECORDS SUMMARY | 2023-10-26 05:00 | XMS_ITS ---
Author Organization [facility] Address [address] [place] [address] Phone [phone] Care Team Providers Care Medical Management Specialist Name Role Phone Ely Fuchs Unavailable [phone] Migration, Provider Unavailable Unavailable REASON FOR VISIT TelEnc Encounters Encounter Location Date Provider Diagnosis [address] [address] 10/26/2023 Provider Migration Plan Of Treatment No Information Progress Notes * MILY RUBIOB:1990 (33 yo M)Acc No.[id number]:10/26/2023 Patient: Amaris MARISSA SAHU :1990 A ge:32 Y S ex:Male Address:[address] [place] [address] [address] [place], [address] Subjective: * Chief Complaints: * T elEnc * * Date:
--- OUTSIDE RECORDS SUMMARY | 2023-12-02 05:00 | XMS_ITS ---
Author Organization [facility] Address [address] [place] [address] Phone [phone] Care Team Providers Care Manager Life Name Role Phone Ely Fuchs Unavailable [phone] Migration, Provider Unavailable Unavailable REASON FOR VISIT EMR-Carter Encounters Encounter Location Date Provider Diagnosis [facility] [address] [place] [address] 12/02/2023 Provider Migration Unspecified mood [affective] disorder F39 and Insomnia, unspecified G47.00 Assessments Encounter Date Diagnosis (ICD Code) Assessment Notes Treatment Notes Treatment Clinical Notes Section Notes 12/02/2023 Unspecified mood [affective] disorder (ICD-10 - F39) 12/02/2023 Insomnia, unspecified (ICD-10 - G47.00) Plan Of Treatment No Information Progress Notes * MILY RUBIOB:1990 (33 yo M)Acc No.[id number]:12/02/2023 Patient: MARISSA SILVER Provider: Naomie coon Migration :1990 A ge:32 Y S ex:Male Date:12/02/2023 Address:[address] [place] [address] [place] [facility] [place] Subjective: * Chief Complaints: * E MR-Carter Assessment: * Assessment: 1. U nspecified mood [affective] disorder - F39 2 . I nsomnia, unspecified - G47.00 * Electronic signature of Prov ider Migration on 12/16/2024 at 05:20 PM EDT Sign off status: Pending * Provider: Naomie coon Migration Date: 1 Generated for Janet hudson/Billy/eTransmitting on: 05:20 PM EDT
--- OUTSIDE RECORDS SUMMARY | 2023-12-02 05:00 | XMS_ITS ---
Author Organization [facility] Address [address] [place] [address] Phone [phone] Care Team Providers Care County Extension Agent Name Role Phone Ely Fuchs Unavailable [phone] Migration, Provider Unavailable Unavailable REASON FOR VISIT TelEnc Encounters Encounter Location Date Provider Diagnosis [address] [address] 12/02/2023 Provider Migration Plan Of Treatment No Information Progress Notes * MILY RUBIOB:1990 (33 yo M)Acc No.[id number]:12/02/2023 Patient: Amaris MARISSA SAHU :1990 A ge:32 Y S ex:Male Address:[address] [place] [address] [address] [place] [facility] [place], [address] Subjective: * Chief Complaints: * T elEnc * * Date:
--- OUTSIDE RECORDS SUMMARY | 2023-12-13 08:30 | XMS_ITS ---
Author Organization [facility] Address [address] [place] [address] Phone [phone] Care Team Providers Care Harbor Tug Captain Name Role Phone Ely Fuchs Unavailable [phone] Vital Signs Temperature 97.3 degrees Fahrenheit 12/13/19 24 Blood pressure systolic 120 mm Hg 12/13/19 24 Blood pressure diastolic 77 mm Hg 024 Height 65.00 in 12/13/2023 Weight 200.00 lbs 12/13/2023 BMI 33.3 kg/m2 12/13/2023 Oximetry 97 % 12/13/2023 Height-cm 165.10 cm 12/13/2023 Weight-kg 90.72 kg 12/13/2023 Encounters Encounter Location Date Provider Diagnosis [facility] [address] [place] [address] 12/13/2023 Ely Jef Insomnia, unspecifie d G47.00 [...] Notes * MILY RUBIOB:1990 (33 yo M)Acc No.[id number]:12/13/2023 Progress Notes Patient: MARISSA SILVER Provider: Andres Fuchs APRN, PhD :1990 A ge:32 Y S ex:Male Date:12/13/2023 Address:[address] [place] [address] , [place], [id number] Objective: * Vitals: B P: 120/77 mm [...] * Electronic signature of SHANNON Andrew on 12/16/2024 at 05:20 PM EDT Sign off status: Pending * Provider: Andres Fuchs APRN, PhD Date: Generated for Janet hudson/Billy/eTransmitting on: 05:20 PM EDT
--- OUTSIDE RECORDS SUMMARY | 2023-12-27 08:30 | XMS_ITS ---
Author Organization [facility] Address [address] [place] [address] Phone [phone] Care Team Providers Care Muck Miner Blasting Name Role Phone JefBeckiEly Unavailable [phone] Vital Signs Temperature 97.1 degrees Fahrenheit 12/27/19 24 Blood pressure systolic 131 mm Hg 12/27/19 24 Blood pressure diastolic 77 mm Hg 024 Height 65.00 in 12/27/2023 Weight 218.20 lbs 12/27/2023 BMI 36.3 kg/m2 12/27/2023 Oximetry 96 % 12/27/2023 Height-cm 165.10 cm 12/27/2023 Weight-kg 98.97 kg 12/27/2023 Encounters Encounter Location Date Provider Diagnosis [facility] [address] [place] [address] 12/27/2023 Ely Fuchs Unspecified mood [affective] disorder [...] Notes * MILY RUBIOB:1990 (33 yo M)Acc No.[id number]:12/27/2023 Progress Notes Patient: Amaris LUIS ALBERTO MARISSA Provider: Andres Fuchs APRN, PhD :1990 A ge:33 Y S ex:Male Date:12/27/2023 Address:[address] [place] [address] , [place], [id number] Objective: * Vitals: B P: 131/77 mm [...] signature of SHANNON Andrew on 12/16/2024 at 05:21 PM EDT Sign off status: Pending * Provider: Andres Fuchs APRN, PhD Date: Generated for Janet hudson/Billy/eTjoannasmitting on: 05:21 PM EDT
--- OUTSIDE RECORDS SUMMARY | 2024-02-02 05:00 | XMS_ITS ---
Author Organization [facility] Address [address] [place] [address] Phone [phone] Care Team Providers Care Viticulture Teacher Name Role Phone Ely Fuchs Unavailable [phone] Migration, Provider Unavailable Unavailable REASON FOR VISIT TelEnc Encounters Encounter Location Date Provider Diagnosis [address] [address] 02/02/2024 Provider Migration Plan Of Treatment No Information Progress Notes * MILY RUBIOB:1990 (33 yo M)Acc No.[id number]:02/02/2024 Patient: Amaris MARISSA SAHU :1990 A ge:33 Y S ex:Male Address:[address] [place] [address] [place] [facility] [place], [address] Subjective: * Chief Complaints: * T elEnc * * Date:
--- OUTSIDE RECORDS SUMMARY | 2024-02-02 05:00 | XMS_ITS ---
Author Organization [facility] Address [address] [place] [address] Phone [phone] Care Team Providers Care Underwater Roboticist Name Role Phone Ely Fuchs Unavailable [phone] Migration, Provider Unavailable Unavailable REASON FOR VISIT EMR-Carter Encounters Encounter Location Date Provider Diagnosis [facility] [address] [place] [address] 02/02/2024 Provider Migration Insomnia, unspecified G47.00 and Unspecified mood [affective] disorder F39 Assessments Encounter Date Diagnosis (ICD Code) Assessment Notes Treatment Notes Treatment Clinical Notes Section Notes 02/02/2024 Insomnia, unspecified (ICD-10 - G47.00) 02/02/2024 Unspecified mood [affective] disorder (ICD-10 - F39) Plan Of Treatment No Information Progress Notes * MILY RUBIOB:1990 (33 yo M)Acc No.[id number]:02/02/2024 Patient: MARISSA SILVER Provider: Naomie coon Migration :1990 A ge:33 Y S ex:Male Date:02/02/2024 Address:[address] [place] [address] [place] [facility] [place] Subjective: * Chief Complaints: * E MR-Carter Assessment: * Assessment: 1. U nspecified mood [affective] disorder - F39 2 . I nsomnia, unspecified - G47.00 * Electronic signature of Prov ider Migration on 12/16/2024 at 05:19 PM EDT Sign off status: Pending * Provider: Naomie coon Migration Date: 04/04/2023 Generated for Janet hudson/Billy/eTransmitting on: 05:19 PM EDT
--- OUTSIDE RECORDS SUMMARY | 2024-02-14 10:00 | XMS_ITS ---
Author Organization [facility] Address [address] [place] [address] Phone [phone] Care Team Providers Care Capacitor Repairer Name Role Phone Jef Ely Lore [phone] Vital Signs Temperature 97.1 degrees Fahrenheit 02/14/20 24 Blood pressure systolic 144 mm Hg 02/14/20 24 Blood pressure diastolic 87 mm Hg 024 Height 65.00 in 02/14/2024 Weight 225.80 lbs 02/14/2024 BMI 37.6 kg/m2 02/14/2024 Oximetry 98 % 02/14/2024 Height-cm 165.10 cm 02/14/2024 Weight-kg 102.42 kg 02/14/2024 Encounters Encounter Location Date Provider Diagnosis [facility] [address] [place] [address] 02/14/2024 Ely Fuchs Encounter for issue of [...] Notes * MILY RUBIOB:1990 (33 yo M)Acc No.[id number]:02/14/2024 Progress Notes Patient: MARISSA SILVER Provider: Andres Fuchs APRN, PhD :1990 A ge:33 Y S ex:Male Date:02/14/2024 Address:[address] [place] [address] , [place], [id number] Objective: * Vitals: B P: 144/87 mm [...] signature of SHANNON Andrew on 12/16/2024 at 05:19 PM EDT Sign off status: Pending * Provider: Andres Fuchs APRN, PhD Date: 04/16/2023 Generated for Janet hudson/Billy/eTransmitting on: 05:19 PM EDT
--- OUTSIDE RECORDS SUMMARY | 2024-09-29 05:00 | XMS_ITS ---
Author Organization [facility] Address [address] [place] [address] Phone [phone] Care Team Providers Care Correctional Counselor/Case Manager Name Role Phone Ely Fuchs Unavailable [phone] Migration, Provider Unavailable Unavailable REASON FOR VISIT EMR-Carter Encounters Encounter Location Date Provider Diagnosis [address] [address] 09/29/2024 Provider Migration Plan Of Treatment No Information Progress Notes * MILY RUBIOB:1990 (33 yo M)Acc No.[id number]:09/29/2024 Patient: Amaris MARISSA SAHU :1990 A ge:33 Y S ex:Male Address:[address] [place] [address] [place], [address] Subjective: * Chief Complaints: * E MR-Carter * * Date:
--- OUTSIDE RECORDS SUMMARY | 2024-09-30 05:00 | XMS_ITS ---
Author Organization [facility] lionel [facility] Address [address] [place] [address] Phone [phone] Care Team Providers Care Health Unit Coordinator Name Role Phone Ely Fuchs Unavailable [phone] Migration, Provider Unavailable Unavailable Allergies Allergen (clinical [...] 09/07/2023 Encounters Encounter Location Date Provider Diagnosis [address] [address] 09/30/2024 Provider Migration Plan Of Treatment No Information Progress Notes * MILY RUBIOB:1990 (33 yo M)Acc No.[id number]:09/30/2024 Patient: Amaris MARISSA SAHU :1990 A ge:33 Y S ex:Male Address:[address] [place] [address] [address] [facility] [place], [place] [address] Subjective: * Chief Complaints: * E MR-Carter [...]
[2024-12-16 17:08] VITALS: BP 116/76; PULSE 81; RESP 18; TEMP 37; O2SAT 99; BMI 29.9
--- NOTE | 2024-12-16 17:14 | ED_ITS ---
<Statement entered by Randy Sierra MD - 12/17/24 03:50> I was consulted by the BECCA, and we discussed the complexity of the problems being addressed. I approve the treatment and management plan for this patient's care in the emergency department, thus performing a substantive portion of the medical decision making. Randy Sierra MD Discharge Plan Disposition Patient Disposition: Home, Self-Care Condition: Good Prescriptions Prescriptions: New docusate sodium 100 mg capsule 100 mg PO DAILY PRN (Reason: constipation) Qty: 30 0RF No Action divalproex 250 mg tablet,delayed release (DR/EC) 250 mg PO DAILY trazodone 50 mg tablet 50 mg PO DAILY ibuprofen 800 mg tablet 800 mg PO TID PRN (Reason: pain) Qty: 30 0RF Rx Instructions: May start 12/04/23. cyclobenzaprine 10 mg Tablet 10 mg PO BID PRN (Reason: Muscle Spasm) Qty: 20 0RF methylprednisolone 4 mg Tablets,Dose Pack 4 mg PO DIRECTED 6 Days Qty: 21 0RF Rx Instructions: Take 1 pack as directed for 6 days Referrals Follow up/Referrals: Ely Fuchs APRN [Primary Care Provider, Medical] - See instructions Jose Church MD [Staff Physician, General Surgery] - See instructions Activity Restrictions/Add. Instructions Additional Instructions/Restrictions: Please return to the emergency department with any worsening signs or symptoms. Please use your stool softener as needed for symptomatic relief. Please follow- up with general surgery for consultation of her hemorrhoids if they persist. Would recommend good water intake, utilize ibuprofen Tylenol or other mbds-weh-wldqers cold and flu medications as needed for symptomatic relief of your viral upper respiratory infection. Please follow-up with your family doctor in the upcoming days/weeks. Clinical Impressions Clinical Impression: Upper respiratory infection, viral, Constipation, External hemorrhoid Instructions Patient Instructions: DI for Hemorrhoids, DI for Viral Upper Respiratory Infection in Adults, DI for Constipation Print Language Print Language: Senegalese Discharge ED Provider: Randy Sierra General Adult HPI General Chief complaint: Upper Respiratory Infection Stated complaint: cough,congestion, headache,body aches Time Seen by Provider: 12/16/24 17:14 Mode of Arrival: Ambulatory Source of Information: Patient Description of Symptoms (Recalled from ER Triage Doc. by RN): Pt presents with c/o severe congestion, Cough, bodyaches, headaches x2 days History of Present Illness HPI narrative: 33-year-old male presents to the emergency department with cough congestion subjective fever and chills, malaise, myalgias for 1 day, patient states he works at [employer] , is unsure of sick exposures, patient denies any overt chest pain, no shortness of breath no nausea no vomiting no abdominal pain, no diarrhea no melena, no hematemesis, no hemoptysis, does admit to hematochezia and constipation for the last 4 days, does have a history of hemorrhoids , did notice some blood on his toilet paper , when he wiped around 4 days ago, denies any urinary type symptomatology, patient is current everyday smoker, denies any alcohol use, admits to occasional marijuana use, denies any other real relevant past medical history takes no medications daily at home, has been utilizing clyz-ujz-swzmtgr Mucinex with some relief. Initial triage vitals unremarkable Please note that above description of symptoms, in this electronic medical record under categorization of recalled from ER triage doctor by RN are reflective of an initial nursing assessment, however, is not reflective of my full history and physical exam that was personally taken and clarified. Consequentially, this preceding description of symptoms, which may include the patient's categorized chief complaint in the EMR, do not reflect my personal clinical impression, and the ultimate description of history of present illness and patient stated complaints should be deferred to this section of the note. Unless stated otherwise or congruent with this section of the note, additional signs, symptoms, or incongruence should be interpreted as inaccurate with my clinical impression. Onset (ago): day(s) Related Data Home Medications ?Medication ?Instructions ?Recorded ?Confirmed divalproex 250 mg tablet,delayed 250 mg PO DAILY 12/0212/18/23 release trazodone 50 mg tablet 50 mg PO DAILY 12/03/2311/29 Previous Rx's ?Medication ?Instructions ?Recorded ibuprofen 800 mg tablet 800 mg PO TID PRN pain #30 t abs 12/03/23 cyclobenzaprine 10 mg tablet 10 mg PO BID PRN Muscle S pasm #20 12/18/23 tabs methylprednisolone 4 mg tablets in 4 mg PO DIRECTED 6 days #21 tabs 12/18/23 a dose pack docusate sodium 100 mg capsule 100 mg PO DAILY PRN con stipation 12/16/24 #30 caps Allergies Allergy/AdvReac Type Severity Reaction Status Date / Time ziprasidone (From Светлана) Allergy Unknown Verified 02/07/23 18:31 [facility] Disclaimer: The information contained in this section may have been updated after the patient was seen, as this information can be updated by other users. 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 Manic bipolar I disorder Nausea and vomiting Panic attacks Patient new to provider Right flank pain Seizures Sprain of foot, left Vertigo Viral syndrome Vomiting Surgical History H/O elbow surgery Left Social History Smoking Status: Current every day smoker tobacco type: e-cigarettes alcohol intake: never substance use type: former substance user and marijuana current occupational status: other Travel in the last 8 weeks?: None Have you lived/traveled outside US in past 30 days?: No Contact w/someone who lives/traveled outside US past 30 days?: No Exposure to someone with infectious disease in past 14 days?: No Do you have a fever (greater than 100.4 F or 38 C)?: No Have you tested positive for COVID-19?: No Exposed to someone with COVID-19 in past 14 days?: No Do you have a sore throat?: No Do you have a cough?: No Do you have any weakness?: No Do you have any diarrhea?: No Are you experiencing any unusual bleeding?: No Do you have any muscle aches/pain?: No Do you have any abdominal pain?: No Are you experiencing loss of taste or smell?: No Other Medical History Have you received the Flu Vaccine for this season: No Have you received the Pneumonia Vaccine: No ROS Obtained: Yes All systems reviewed & no additional complaints except as documented Physical Exam General General appearance: alert and in no apparent distress Head Head exam: atraumatic and normocephalic Eye Eye exam: Present PERRL and EOMI ENT ENT exam: Present normal oropharynx, mucous membranes moist and other (No tonsillar exudate, no oropharyngeal edema or erythema, uvula midline) Neck Neck exam: Present normal inspection Chest Chest inspection: Present normal inspection and symmetric chest wall rise Respiratory Respiratory exam: Present normal lung sounds bilaterally; Absent respiratory distress, wheezes or stridor Cardiovascular Cardiovascular exam: Present regular rate and normal rhythm Abdominal Exam Abdominal exam: Present soft; Absent tenderness, guarding, rebound or rigidity Rectal Exam Rectal exam: Present hemorrhoids comment: I performed rectal exam along with nurse wide load escort, small external hemorrhoid around 1130/12 PM, nonincarcerated, nonstrangulated benign prolapse no active hematochezia Extremities Exam Extremities exam: Present normal inspection Neurological Exam Neurological exam: Present alert and oriented X3 Psychiatric Psychiatric exam: Present normal affect Skin Skin exam: Present warm and dry Medical Decision Making Medical Records Medical records reviewed: Yes I reviewed the patient's medical records. Screening: Per USPSTF and CDC recommendations, given the prevalence of disease in our region, it is our hospital?s policy to screen for HIV and viral Hepatitis for all patients aged 18 and over and those with ongoing risk factors. Aden Inquiry Pt receiving controlled substance: No Aden was queried for this patient: No Vital Signs: 12/16/24 17:08 12/16/24 17:30 Temperature 98.6 F Temperature Source Temporal Artery Scan Pulse Rate [Right] 81 Respiratory Rate 18 Blood Pressure [Right Arm] 116/76 Blood Pressure Mean [Right Arm] 89 Blood Pressure Source [Right Arm] Automatic Cuff Blood Pressure Position [Right Arm] Sitting 02 Sat by Pulse Oximetry 99 98 Oxygen Delivery Method Room Air Room Air Lab Data Lab results reviewed: Yes I reviewed the patient's lab results. Lab Results 12/16/24 17:12: SARS-CoV-2 (PCR) Not detected, Influenza A Untype (PCR) Not detected, Influenza Type B (PCR) Not detected Orders (Tests/Meds): ORDERS Category Date Time Status Rapid PCR Covid and Flu A/B Stat Lab 12/16/24 17:12 Completed Medical Decision Narrative: 33-year-old male presents to the emergency department multiple symptomatology, see HPI for detailed past medical history, most notable being 4-day history of constipation and 1 day history of URI type symptomatology, differential diagnose include but not limited to, viral URI, acute bronchitis, constipation, external hemorrhoids, internal hemorrhoids among others. I discussed this patient's case with the attending physician Dr. Sierra Will obtain rapid PCR COVID and flu patient has no other red flag signs or symptoms, hemodynamically stable throughout time in the emergency department, only 1 day of URI type symptomatology, lung auscultation is unremarkable, no concern for crackles or rails/consolidation, thus will not pursue any chest imaging at this time. COVID-19 rapid antigen swab and influenza rapid antigen swab are negative via PCR. I discussed the results with the patient at bedside recommend bqib-uiv-bzqlryy cold and flu medication as needed for symptomatic relief, patient once again has no other red flag signs or symptoms, no concern for pneumonia/consolidation at this time as patient symptomatology is been going on less than 24 hours, will prescribe the patient stool softener/laxative as needed for symptomatic relief of constipation. Patient has no abdominal pain no nausea no vomiting, constipation for the last 4 days, ongoing external hemorrhoids that are nonstrangulated, recommend follow-up with general surgeon for consultation with these. Patient voiced understanding and agreement with the current treatment plan/discharge plan. Strict ED return precautions given. Critical Care Critical Care Time Critical Care Time: No
[2024-12-16 17:18] LABS: Coronavirus 19, PCR Not Detected (NotDetected); Influenza A, PCR Not Detected (NotDetected); Influenza B, PCR Not Detected (NotDetected)
--- OUTSIDE RECORDS SUMMARY | 2024-12-16 17:20 | XMS_ITS | Patient Health Record ---
Author Organization [facility] [place] Address [address] [facility] [place] [address] Care Team Providers Care [employer]water [employer] Civil Engineer Name Role Phone Erin Hackettra Primary Care Provider Allergies Allergen (clinical drug ingredient) Drug/Non Drug Allergy documented on EMR Reaction Allergy Type Onset Date Status ziprasidone Geodon Unknown Drug Allergy Activ e Reason For Referral No Information Medications Medication SIG (Take, Route, Frequency, Duration) Notes Start Date End Date Status hydrOXYzine HCl 25 MG 1 tablet Orally ev tone 8 hours; Duration: 10 days 08/06/2022 Active Triamcinolone Acetonide 0.1 % 1 application Externally Twice a day; Duration: 15 days 09/27/2022 Active predniSONE 5 MG (21) Complete 1 therapy pack as directed Orally as directed; Duration: 6 days 09/27/2022 Active traZODone HCl 50 MG TAKE 1 TABLET BY JENNY TH EVERY NIGHT AT BEDTIME NEEDED; Duration: 30 Active Divalproex Sodium 250 MG TAKE 1 TABLET B Y MOUTH ONCE DAILY AT BEDTIME; Duration: 30 Active Social History Tobacco Use: Social History Observation Description Date Details (start date - stop date) Current Smoker NA - NA Sex Assigned At : Social History Observation Description Sex Assigned At Male Household Question Answer Notes Level of education: not finished high school Tobacco Use/Smoking Question Answer Notes Are you a current smoker How often do you smoke cigarettes? some days, bu t not every day Alcohol Screen (Audit-C) Question Answer Notes Did you have a drink containing alcohol in the p ast year? Yes Points 0 Interpretation Negative Tobacco use other than smoking: Question Answer Notes Are you an other tobacco user? Yes v ape Problems Problem Type SNOMED Code ICD Code Onset Dates Problem Status W/U Status Risk Notes Problem Generalized anxiety disorder (42124483) FELECIA (generalized anxiety disorder) (F41.1) Active confirmed Problem Insomnia (157416419) Insomnia, unspecified type (G47.00) Active confirmed Problem Obese class I (973961669311459 ) BMI 33.0-33.9,adult (Z68.33) Active confirmed Problem Mild major depression, single episode (03304589) Current mild episode of major depressive disorder without prior episode (F32.0) Active confirmed Problem Mixed bipolar I disorder (36344152) Bipolar affective disorder, current episode mixed, current episode severity unspecified (F31.60) Active confirmed Problem Substance use disorder (1715939787) Substance use disorder (F19.90) Active confirmed Plan Of Treatment Pending Test Test Name Order Date Albumin/Creatinine Ratio,Urine 3 Insurance Providers Payer Name Payer Address Payer Phone Subscriber Number Group Number Insured Name Patient Relationship to Insured Coverage Start Date Coverage End Date [facility] Medicaid [address] [address] [place] [address] [id number] [employer] Self - patient is the insured 9 Medications Administered Medication Instructions Date of Administration Dosage Notes dexAMETHasone 09/16/2022 8 mg Medical (General) History Medical History History ICD Code Substance use disorder F19.90 mood disorder FELECIA (generalized anxiety disorder) F41.1 Bipolar affective disorder, current episode mixed, current episode severity unspecified F31.60 Surgical History Surgery Date(Month/Year) left elbow 2021 Hospitalization History Reason Date(Month/Year) overdose
--- OUTSIDE RECORDS SUMMARY | 2024-12-16 17:20 | XMS_ITS | Patient Health Record ---
Author Organization [facility] lionel [facility] Address [address] [place] [address] Phone [phone] Care Team Providers Care Adjunct Physical Education Instructor Name Role Phone Ely Fuchs Unavailable [phone] Migration, Provider Unavailable Unavailable Reason For Referral No Information Medications Medication SIG (Take, Route, Frequency, Duration) Notes Start Date End Date Status traZODone HCl 50 MG Tablet Oral 02/14/2024 Active Ibuprofen 800 MG Tablet Oral 02/14/2024 Active DULoxetine HCl 30 MG Capsule Delayed Release Particles Oral 02/14/2024 Ac tive Artificial Tears 1-0.3 % Solution Ophthalmic 02/14/2024 Active Depakote 250 MG Tablet Delayed Release Oral 02/14/2024 Active Cyclobenzaprine HCl 10 MG Tablet Oral 02/14/2024 Active Divalproex Sodium 250 MG Tablet Delayed Release Oral 02/14/2024 Activ e hydrOXYzine HCl 25 MG Tablet Oral 02/14/2024 Active Social History Social History Additional Details Category Social Info Options Details Migrated Social History Migrated Social History Alcohol Intake: Moderate 09/07/2023,Tobacco Years: Former smoker 09/07/2023,Smoking Status: 19 09/07/2023 Problems Problem Type SNOMED Code ICD Code Onset Dates Problem Status W/U Status Risk Notes Problem Affective psychosis (565840994) Unspecified mood [affective] disorder (F39) 02/02/20 24 Active confirmed Problem Anxiety disorder (207605739) Anxiety disorder, unspecified (F41.9) 10/26/19 24 Active confirmed Problem Insomnia (923819701) Insomnia, unspecified (G47.00) 02/14/20 24 Active confirmed Problem Tear film insufficiency (07447177) 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6) 09/07/19 Active confirmed Problem Screening procedure (81993190) Encounter for screening, unspecified (Z13.9) 09/07/19 Active confirmed Problem Therapeutic drug monitoring, quantitative (regime/therapy) (11552344) Encounter for therapeutic drug level monitoring (Z51.81) 02/14/20 Active confirmed Problem Repeated prescription (379302900) Encounter for issue of repeat prescription (Z76.0) 02/14/20 Active confirmed Problem History of urinary stone (968406181) Personal history of urinary calculi (Z87.442) 10/26/19 Active confirmed Problem Muscle pain (56034026) Myalgia, unspecified site (M79.10) 02/14/20 Active confirmed Problem Cough (finding) (27180174) Cough, unspecified (R05.9) 09/07/19 Active confirmed Vital Signs Temperature 97.1 degrees Fahrenheit 02/14/2024 Height-cm 165.10 cm 02/14/2024 Oximetry 98 % 02/14/2024 Blood pressure diastolic 87 mm Hg 02/14/2024 Weight-kg 102.42 kg 02/14/2024 Height 65.00 in 02/14/2024 Blood pressure systolic 144 mm Hg 02/14/2024 Weight 225.80 lbs 02/14/2024 BMI 37.6 kg/m2 02/14/2024 Encounters Encounter Location Date Provider Diagnosis [address] [address] 12/27/2023 Ely Fuchs Unspecified mood [affective] disorder F39 ; Pain, unspecified R52 ; Encounter for therapeutic drug level monitoring Z51.81 and Encounter for issue of repeat prescription Z76.0 [facility], [facility] [address] [place] [address] 02/02/2024 Provider Migration Insomnia, unspecified G47.00 and Unspecified mood [affective] disorder F39 [facility], [address] [address] 02/14/2024 Ely Fuchs Encounter for issue of repeat prescription Z76.0 ; Encounter for therapeutic drug level monitoring Z51.81 ; Insomnia, unspecified G47.00 and Myalgia, unspecified site M79.10 [facility], [address] [address] 02/02/2024 Provider Migration [facility], [address] [address] 09/29/2024 Provider Migration [facility], [address] [address] 09/30/2024 Provider Migration Assessments Encounter Date Diagnosis (ICD Code) Assessment Notes Treatment Notes Treatment Clinical Notes Section Notes 12/27/2023 Unspecified mood [affective] disorder (ICD-10 - F39) 12/27/2023 Pain, unspecified (ICD-10 - R52) 12/27/2023 Encounter for therapeutic drug level monitoring (ICD-10 - Z51.81) 12/27/2023 Encounter for issue of repeat prescription (ICD-10 - Z76.0) 02/02/2024 Unspecified mood [affective] disorder (ICD-10 - F39) 02/02/2024 Insomnia, unspecified (ICD-10 - G47.00) 02/14/2024 Insomnia, unspecified (ICD-10 - G47.00) 02/14/2024 Encounter for therapeutic drug level monitoring (ICD-10 - Z51.81) 02/14/2024 Encounter for issue of repeat prescription (ICD-10 - Z76.0) 02/14/2024 Myalgia, unspecified site (ICD-10 - M79.10) Plan Of Treatment No Information Insurance Providers Payer Name Payer Address Payer Phone Subscriber Number Group Number Insured Name Patient Relationship to Insured Coverage Start Date Coverage End Date A[employer]na [facility] (Medicaid Replacement - [place]) [address] [place] [phone] [id number] MARISSA RUBI Self - patient is the insured
[2024-12-16 17:30] VITALS: O2SAT 98
[2024-12-16 17:59] VITALS: BP 140/78; PULSE 80; RESP 20; TEMP 36.8; O2SAT 98
== END 2024-12-16 18:00 | disposition home or self-care (01) ==
PROVIDERS: Emergency Provider Student in an Organized Health Care Education/Training Program; PCP Nurse Practitioner Family
DX: R51.9 Headache, unspecified (principal); K59.00 Constipation, unspecified; J06.9 Acute upper respiratory infection, unspecified
CPT/HCPCS: 87636; 99283

== ENCOUNTER 2024-12-28 22:11 | Emergency (ER) | payer OTHER, SELFPAY ==
--- OUTSIDE RECORDS SUMMARY | 2023-10-26 05:00 | XMS_ITS ---
Author Organization [facility] Address [address] [place] [address] Phone [phone] Care Team Providers Care Retinal Surgeon Name Role Phone Ely Fuchs Unavailable [phone] Migration, Provider Unavailable Unavailable REASON FOR VISIT TelEnc Encounters Encounter Location Date Provider Diagnosis [address] [address] 10/26/2023 Provider Migration Plan Of Treatment No Information Progress Notes * MILY RUBIOB:1990 (34 yo M)Acc No.[id number]:10/26/2023 Patient: Amaris MARISSA SAHU :1990 A ge:32 Y S ex:Male Address:[address] [place] [address] [place], [address] Subjective: * Chief Complaints: * T elEnc * * Date:
--- OUTSIDE RECORDS SUMMARY | 2023-12-02 05:00 | XMS_ITS ---
Author Organization [facility] Address [address] [place] [address] Phone [phone] Care Team Providers Care Management Information Systems Director Name Role Phone Ely Fuchs Unavailable [phone] Migration, Provider Unavailable Unavailable REASON FOR VISIT TelEnc Encounters Encounter Location Date Provider Diagnosis [address] [address] 12/02/2023 Provider Migration Plan Of Treatment No Information Progress Notes * MILY RUBIOB:1990 (34 yo M)Acc No.[id number]:12/02/2023 Patient: Amaris MARISSA SAHU :1990 A ge:32 Y S ex:Male Address:[address] [place] [address] [address] [facility] [place], [address] Subjective: * Chief Complaints: * T elEnc * * Date:
--- OUTSIDE RECORDS SUMMARY | 2023-12-02 05:00 | XMS_ITS ---
Author Organization [facility] Address [address] [place] [address] Phone [phone] Care Team Providers Care Hose Operator Name Role Phone Ely Fuchs Unavailable [phone] Migration, Provider Unavailable Unavailable REASON FOR VISIT EMR-Carter Encounters Encounter Location Date Provider Diagnosis [facility] [address] [place] [address] 12/02/2023 Provider Migration Unspecified mood [affective] disorder F39 and Insomnia, unspecified G47.00 Assessments Encounter Date Diagnosis (ICD Code) Assessment Notes Treatment Notes Treatment Clinical Notes Section Notes 12/02/2023 Unspecified mood [affective] disorder (ICD-10 - F39) 12/02/2023 Insomnia, unspecified (ICD-10 - G47.00) Plan Of Treatment No Information Progress Notes * MILY RUBIOB:1990 (34 yo M)Acc No.[id number]:12/02/2023 Patient: MARISSA SILVER Provider: Naomie coon Migration :1990 A ge:32 Y S ex:Male Date:12/02/2023 Address:[address] [place] [address] [place] [facility] [place] Subjective: * Chief Complaints: * E MR-Carter Assessment: * Assessment: 1. U nspecified mood [affective] disorder - F39 2 . I nsomnia, unspecified - G47.00 * Electronic signature of Prov ider Migration on 12/28/2024 at 10:26 PM EDT Sign off status: Pending * Provider: Naomie coon Migration Date: 1 Generated for Janet hudson/Billy/eTransmitting on: 1 10:26 PM EDT
--- OUTSIDE RECORDS SUMMARY | 2023-12-13 08:30 | XMS_ITS ---
Author Organization [facility] Address [address] [place] [address] Phone [phone] Care Team Providers Care Foreign Language Professor Name Role Phone Ely Fuchs Unavailable [phone] Vital Signs Temperature 97.3 degrees Fahrenheit 12/13/19 24 Blood pressure systolic 120 mm Hg 12/13/19 24 Blood pressure diastolic 77 mm Hg 024 Height 65.00 in 12/13/2023 Weight 200.00 lbs 12/13/2023 BMI 33.3 kg/m2 12/13/2023 Oximetry 97 % 12/13/2023 Height-cm 165.10 cm 12/13/2023 Weight-kg 90.72 kg 12/13/2023 Encounters Encounter Location Date Provider Diagnosis [facility] [address] [place] [address] 12/13/2023 Ely Jef Insomnia, unspecifie d G47.00 [...] Notes * MILY RUBIOB:1990 (34 yo M)Acc No.[id number]:12/13/2023 Progress Notes Patient: MARISSA SILVER Provider: Andres Fuchs APRN, PhD :1990 A ge:32 Y S ex:Male Date:12/13/2023 Address:[address] [place] [address] , [place], [id number] Objective: * Vitals: B P: 120/77 mm [...] * Electronic signature of SHANNON Andrew on 12/28/2024 at 10:26 PM EDT Sign off status: Pending * Provider: Andres Fuchs APRN, PhD Date: Generated for Janet hudson/Billy/eTransmitting on: 10:26 PM EDT
--- OUTSIDE RECORDS SUMMARY | 2023-12-27 08:30 | XMS_ITS ---
Author Organization [facility] Address [address] [place] [address] Phone [phone] Care Team Providers Care English And Reading Instructor Name Role Phone JefBeckiEly Unavailable [phone] Vital Signs Temperature 97.1 degrees Fahrenheit 12/27/19 24 Blood pressure systolic 131 mm Hg 12/27/19 24 Blood pressure diastolic 77 mm Hg 024 Height 65.00 in 12/27/2023 Weight 218.20 lbs 12/27/2023 BMI 36.3 kg/m2 12/27/2023 Oximetry 96 % 12/27/2023 Height-cm 165.10 cm 12/27/2023 Weight-kg 98.97 kg 12/27/2023 Encounters Encounter Location Date Provider Diagnosis [facility] [address] [place] [address] 12/27/2023 Ely Fuchs Unspecified mood [affective] disorder [...] Notes * MILY RUBIOB:1990 (34 yo M)Acc No.[id number]:12/27/2023 Progress Notes Patient: Amaris LUIS ALBERTO MARISSA Provider: Andres Fuchs APRN, PhD :1990 A ge:33 Y S ex:Male Date:12/27/2023 Address:[address] [place] [address] , [place], [id number] Objective: * Vitals: B P: 131/77 mm [...] signature of SHANNON Andrew on 12/28/2024 at 10:27 PM EDT Sign off status: Pending * Provider: Andres Fuchs APRN, PhD Date: Generated for Janet hudson/Billy/eTransmitting on: 10:27 PM EDT
--- OUTSIDE RECORDS SUMMARY | 2024-02-02 05:00 | XMS_ITS ---
Author Organization [facility] Address [address] [place] [address] Phone [phone] Care Team Providers Care Chain Mortiser Operator Name Role Phone Ely Fuchs Unavailable [phone] Migration, Provider Unavailable Unavailable REASON FOR VISIT EMR-Carter Encounters Encounter Location Date Provider Diagnosis [facility] [address] [place] [address] 02/02/2024 Provider Migration Insomnia, unspecified G47.00 and Unspecified mood [affective] disorder F39 Assessments Encounter Date Diagnosis (ICD Code) Assessment Notes Treatment Notes Treatment Clinical Notes Section Notes 02/02/2024 Insomnia, unspecified (ICD-10 - G47.00) 02/02/2024 Unspecified mood [affective] disorder (ICD-10 - F39) Plan Of Treatment No Information Progress Notes * MILY RUBIOB:1990 (34 yo M)Acc No.[id number]:02/02/2024 Patient: MARISSA SILVER Provider: Naomie coon Migration :1990 A ge:33 Y S ex:Male Date:02/02/2024 Address:[address] [place] [address] [place] [facility] [place] Subjective: * Chief Complaints: * E MR-Carter Assessment: * Assessment: 1. U nspecified mood [affective] disorder - F39 2 . I nsomnia, unspecified - G47.00 * Electronic signature of Prov ider Migration on 12/28/2024 at 10:27 PM EDT Sign off status: Pending * Provider: Naomie coon Migration Date: 04/04/2023 Generated for Janet hudson/Billy/eTransmitting on: 1 10:27 PM EDT
--- OUTSIDE RECORDS SUMMARY | 2024-02-02 05:00 | XMS_ITS ---
Author Organization [facility] Address [address] [place] [address] Phone [phone] Care Team Providers Care Armored Car Guard And Driver Name Role Phone Ely Fuchs Unavailable [phone] Migration, Provider Unavailable Unavailable REASON FOR VISIT TelEnc Encounters Encounter Location Date Provider Diagnosis [address] [address] 02/02/2024 Provider Migration Plan Of Treatment No Information Progress Notes * MILY RUBIOB:1990 (34 yo M)Acc No.[id number]:02/02/2024 Patient: Amaris MARISSA SAHU :1990 A ge:33 Y S ex:Male Address:[address] [place] [address] [place], [address] Subjective: * Chief Complaints: * T elEnc * * Date:
--- OUTSIDE RECORDS SUMMARY | 2024-02-14 10:00 | XMS_ITS ---
Author Organization [facility] Address [address] [place] [address] Phone [phone] Care Team Providers Care Regular Senior Care Provider Name Role Phone Jef Ely Lore [phone] Vital Signs Temperature 97.1 degrees Fahrenheit 02/14/20 24 Blood pressure systolic 144 mm Hg 02/14/20 24 Blood pressure diastolic 87 mm Hg 024 Height 65.00 in 02/14/2024 Weight 225.80 lbs 02/14/2024 BMI 37.6 kg/m2 02/14/2024 Oximetry 98 % 02/14/2024 Height-cm 165.10 cm 02/14/2024 Weight-kg 102.42 kg 02/14/2024 Encounters Encounter Location Date Provider Diagnosis [facility] [address] [place] [address] 02/14/2024 Ely Fuchs Encounter for issue of [...] Notes * MILY RUBIOB:1990 (34 yo M)Acc No.[id number]:02/14/2024 Progress Notes Patient: MARISSA SILVER Provider: Andres Fuchs APRN, PhD :1990 A ge:33 Y S ex:Male Date:02/14/2024 Address:[address] [place] [address] , [place], [id number] Objective: * Vitals: B P: 144/87 mm [...] Date: 04/16/2023 Generated for Janet hudson/Billy/eTransmitting on: 10:26 PM EDT
--- OUTSIDE RECORDS SUMMARY | 2024-09-29 05:00 | XMS_ITS ---
Author Organization [facility] Address [address] [place] [address] Phone [phone] Care Team Providers Care Assisted Sales Representative Name Role Phone Ely Fuchs Unavailable [phone] Migration, Provider Unavailable Unavailable REASON FOR VISIT EMR-Carter Encounters Encounter Location Date Provider Diagnosis [address] [address] 09/29/2024 Provider Migration Plan Of Treatment No Information Progress Notes * MILY RUBIOB:1990 (34 yo M)Acc No.[id number]:09/29/2024 Patient: Amaris MARISSA SAHU :1990 A ge:33 Y S ex:Male Address:[address] [place] [address] [place], [address] Subjective: * Chief Complaints: * E MR-Carter * * Date:
--- OUTSIDE RECORDS SUMMARY | 2024-09-30 05:00 | XMS_ITS ---
Author Organization [facility]el [facility] Address [address] [place] [address] Phone [phone] Care Team Providers Care Supervisor Customer Records Division Name Role Phone Ely Fuchs Unavailable [phone] Migration, Provider Unavailable Unavailable Allergies Allergen (clinical [...] 09/07/2023 Encounters Encounter Location Date Provider Diagnosis [address] [address] 09/30/2024 Provider Migration Plan Of Treatment No Information Progress Notes * MILY RUBIOB:1990 (34 yo M)Acc No.[id number]:09/30/2024 Patient: Amaris MARISSA SAHU :1990 A ge:33 Y S ex:Male Address:[address] [place] [address] [address] [facility], [place] [address] Subjective: * Chief Complaints: * E MR-Carter [...]
[2024-12-28 22:14] VITALS: BP 123/82; PULSE 86; RESP 18; TEMP 37.2; O2SAT 96; BMI 30.7
[2024-12-28 22:26] VITALS: BP 127/89; PULSE 61; O2SAT 98
--- OUTSIDE RECORDS SUMMARY | 2024-12-28 22:27 | XMS_ITS | Patient Health Record ---
Author Organization [facility] lionel [facility] Address [address] [place] [address] Phone [phone] Care Team Providers [employer] Architect Name Role Phone Ely Fuchs Unavailable [phone] Migration, Provider Unavailable Unavailable Reason For Referral [...] W/U Status Risk Notes Problem Affective psychosis (731048952) Unspecified mood [affective] disorder (F39) 02/02/20 24 Active confirmed Problem Anxiety disorder (575074139) Anxiety disorder, unspecified (F41.9) 10/26/19 24 Active confirmed Problem Insomnia (848908723) Insomnia, unspecified (G47.00) 02/14/20 24 Active confirmed Problem Tear film insufficiency (40472470) 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6) 09/07/19 Active confirmed Problem Screening procedure (84960709) Encounter for screening, unspecified (Z13.9) 09/07/19 Active confirmed Problem Therapeutic drug monitoring, quantitative (regime/therapy) (15854493) Encounter for therapeutic drug level monitoring (Z51.81) 02/14/20 Active confirmed Problem Repeated prescription (941862792) Encounter for issue of repeat prescription (Z76.0) 02/14/20 Active confirmed Problem History of urinary stone (306890152) Personal history of urinary calculi (Z87.442) 10/26/19 Active confirmed Problem Muscle pain (43920830) Myalgia, unspecified site (M79.10) 02/14/20 Active confirmed Problem Cough (finding) (50437046) Cough, unspecified (R05.9) 09/07/19 Active confirmed Vital Signs Temperature 97.1 degrees Fahrenheit 02/14/2024 Height-cm 165.10 cm 02/14/2024 Oximetry 98 % 02/14/2024 Blood pressure diastolic 87 mm Hg 02/14/2024 Weight-kg 102.42 kg 02/14/2024 Height 65.00 in 02/14/2024 Blood pressure systolic 144 mm Hg 02/14/2024 Weight 225.80 lbs 02/14/2024 BMI 37.6 kg/m2 02/14/2024 Encounters Encounter Location Date Provider Diagnosis [address] [address] 02/02/2024 Provider Migration Insomnia, unspecified G47.00 and Unspecified mood [affective] disorder F39 [address] [address] 02/14/2024 Ely Fuchs Encounter for issue of repeat prescription Z76.0 ; Encounter for therapeutic drug level monitoring Z51.81 ; Insomnia, unspecified G47.00 and Myalgia, unspecified site M79.10 [facility], [facility] [address] [place] [address] 02/02/2024 Provider Migration [facility], [facility] [address] [place] [address] 09/29/2024 Provider Migration [facility], [facility] [address] [place] [address] 09/30/2024 Provider Migration Assessments Encounter Date Diagnosis (ICD Code) Assessment Notes Treatment Notes Treatment Clinical Notes Section Notes 02/02/2024 Unspecified mood [affective] disorder (ICD-10 - [...] Coverage Start Date Coverage End Date [employer] [facility] (Medicaid Replacement - [place]) [address] [place] [phone] [id number] MARISSA RUBI Self - patient is the insured
--- OUTSIDE RECORDS SUMMARY | 2024-12-28 22:27 | XMS_ITS | Patient Health Record ---
Author Organization [facility], [place] Address [address] [facility] [place] [address] Care Team Providers Care Escrow Assistant Name Role Phone Erin Hackettra Primary Care [...] Status Risk Notes Problem Generalized anxiety disorder (47090780) FELECIA (generalized anxiety disorder) (F41.1) Active confirmed Problem Insomnia (238100852) Insomnia, unspecified type (G47.00) Active confirmed Problem Obese class I (078004752980490 ) BMI 33.0-33.9,adult (Z68.33) Active confirmed Problem Mild major depression, single episode (84551698) Current mild episode of major depressive disorder without prior episode (F32.0) Active confirmed Problem Mixed bipolar I disorder (01422601) Bipolar affective disorder, current episode mixed, current episode severity unspecified (F31.60) Active confirmed Problem Substance use disorder (3217471668) Substance use disorder (F19.90) Active confirmed Plan Of Treatment Pending Test Test Name Order Date Albumin/Creatinine Ratio,Urine 3 Insurance Providers Payer Name Payer Address Payer Phone Subscriber Number Group Number Insured Name Patient Relationship to Insured Coverage Start Date Coverage End Date [facility] [place] Medicaid [address] [address] [place] [phone] [id number] [place]o [employer] Self - patient is the [...]
[2024-12-28 22:30] VITALS: BP 151/93; PULSE 105; RESP 12; O2SAT 98
[2024-12-28 22:31] LABS: Coronavirus 19, PCR Not Detected (NotDetected); Influenza A, PCR Not Detected (NotDetected); Influenza B, PCR Not Detected (NotDetected)
--- NOTE | 2024-12-28 22:33 | XR_ITS ---
PROCEDURE INFORMATION: Exam: XR Chest Exam date and time: 12/28/2024 10:35 PM Age: 34 years old Clinical indication: Shortness of breath; Other: Chest pain; Additional info: Chest pain/shortness of breath TECHNIQUE: Imaging protocol: Radiologic exam of the chest. Views: 2 views. COMPARISON: CR XR CHEST 2V 06/01/2021 5:51 PM FINDINGS: Tubes, catheters and devices: Leads overlying chest. Lungs: No consolidation. Pleural spaces: No significant pleural effusion. No pneumothorax. Heart/Mediastinum: No cardiomegaly. Bones/joints: No displaced fracture. Soft tissues: Unremarkable. IMPRESSION: No definite acute cardiopulmonary disease.
[2024-12-28 22:34] LABS: POC Glucose,Bedside 111 gm/dL (70-110)
--- NOTE | 2024-12-28 22:38 | HMH.EDGENADL ---
Discharge Plan Disposition Patient Disposition: Home, Self-Care Condition: Good Prescriptions Prescriptions: New ondansetron 4 mg tablet,disintegrating 4 mg PO Q6H PRN (Reason: nausea and vomiting) Qty: 10 0RF benzonatate 100 mg capsule 100 mg PO TID PRN (Reason: cough) Qty: 14 0RF guaifenesin 600 mg tablet extended release 12hr 600 mg PO BID PRN (Reason: congestion) Qty: 10 0RF No Action divalproex 250 mg tablet,delayed release (DR/EC) 250 mg PO DAILY trazodone 50 mg tablet 50 mg PO DAILY ibuprofen 800 mg tablet 800 mg PO TID PRN (Reason: pain) Qty: 30 0RF Rx Instructions: May start 12/04/23. cyclobenzaprine 10 mg Tablet 10 mg PO BID PRN (Reason: Muscle Spasm) Qty: 20 0RF methylprednisolone 4 mg Tablets,Dose Pack 4 mg PO DIRECTED 6 Days Qty: 21 0RF Rx Instructions: Take 1 pack as directed for 6 days docusate sodium 100 mg capsule 100 mg PO DAILY PRN (Reason: constipation) Qty: 30 0RF Referrals Follow up/Referrals: Ely Fuchs APRN [Primary Care Provider, Medical] - See instructions Og Vargas MD [Staff Physician, Cardiology] - See instructions Referral Note: follow up syncopal episodes Activity Restrictions/Add. Instructions Additional Instructions/Restrictions: You were evaluated in the ER and are believed to be appropriate for discharge at this time. Continue taking any home medications as previously prescribed. Take prescribed guaifenesin (Mucinex) as directed. Do not combine this with any other Mucinex product. Take the prescribed ondansetron (Zofran) if needed for nausea and vomiting. The benzonatate is for cough. Make an appointment with your primary care doctor for reevaluation. Call the cardiology office to make an appointment for reevaluation as well. Return to the ER with any new, worsening, or otherwise concerning symptoms. Clinical Impressions Clinical Impression: Syncope, Cough Instructions Patient Instructions: DI for Syncope in Adults (Fainting), DI for Syncope in Children (Fainting) Print Language Print Language: Micronesian Discharge ED Provider: Rosina Morales General Adult HPI <Rosina Morales DO - Last Filed: 12/28/24 23:07> General Chief complaint: Syncope Stated complaint: congested, n/v, having blackouts,diarhea Time Seen by Provider: 12/28/24 22:25 Mode of Arrival: Ambulatory Source of Information: Patient Description of Symptoms (Recalled from ER Triage Doc. by RN): nahun presents for chest congestion, nausea, and diarrhea. patient also states he may have had a syncopal episode last night in the shower, he doesnt remember anything but getting really hot and trying to turn thr shower down a bit and he woke up to his girlfriend asking if he was okay and he was sitting in the tub. patient initials symptoms have been around for 2 weeks adn he states it not getting worse but its not getting better. History of Present Illness HPI narrative: Patient is an otherwise healthy 34-year-old male with a previous history of IV drug use no recent drug use who uses marijuana who presents to the emergency department with chest congestion intermittent chest pain, nausea and an episode of syncope last night. Patient states that he has had some nasal congestion productive cough for the last couple weeks. Patient has been using Mucinex at home. Patient has had some intermittent chest pain as well. Has not had any shortness of breath. Patient states that he will have some intermittent pain in his abdomen with eating but does not have any abdominal pain at this moment. Patient denies any nausea vomiting. Patient states that he had a syncopal episode while in the shower last night. Patient states that he got really hot and slumped down in the bathtub. Patient states that he has had 2 prior syncope episodes in the past. Patient does not have any cardiac history. Patient states that he does not have a history of blood clots, no recent travel. Related Data Home Medications ?Medication ?Instructions ?Recorded ?Confirmed divalproex 250 mg tablet,delayed 250 mg PO DAILY 12/03/23 12/18/23 release trazodone 50 mg tablet 50 mg PO DAILY 12/03/23 12/18/23 Previous Rx's ?Medication ?Instructions ?Recorded ibuprofen 800 mg tablet 800 mg PO TID PRN pain #30 tabs 12/03/23 cyclobenzaprine 10 mg tablet 10 mg PO BID PRN Muscle Spasm #20 12/18/23 tabs methylprednisolone 4 mg tablets in 4 mg PO DIRECTED 6 days #21 tabs 12/18/23 a dose pack docusate sodium 100 mg capsule 100 mg PO DAILY PRN constipation 12/16/24 #30 caps benzonatate 100 mg capsule 100 mg PO TID PRN cough #14 caps 12/29/24 guaifenesin 600 mg tablet, 600 mg PO BID PRN congestion #10 12/29/24 extended release 12 hr tabs ondansetron 4 mg disintegrating 4 mg PO Q6H PRN nausea and 12/29/24 tablet vomiting #10 tabs Allergies Allergy/AdvReac Type Severity Reaction Status Date / Time ziprasidone (From [facility]) Allergy Unknown Verified 02/07/23 18:31 [facility] <Rosina Morales, DO - Last Filed: 12/28/24 23:07> [facility] Disclaimer: The information contained in this section may have been updated after the patient was seen, as this information can be updated by other users. 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 Manic bipolar I disorder Nausea and vomiting Panic attacks Patient new to provider Right flank pain Seizures Sprain of foot, left Vertigo Viral syndrome Vomiting Surgical History H/O elbow surgery Left Social History Smoking Status: Heavy tobacco smoker tobacco type: e-cigarettes alcohol intake: never substance use type: former substance user and marijuana current occupational status: other Travel in the last 8 weeks?: None Have you lived/traveled outside US in past 30 days?: No Contact w/someone who lives/traveled outside US past 30 days?: No Exposure to someone with infectious disease in past 14 days?: No Do you have a fever (greater than 100.4 F or 38 C)?: No Have you tested positive for COVID-19?: No Exposed to someone with COVID-19 in past 14 days?: No Do you have a sore throat?: No Do you have a cough?: No Do you have any weakness?: No Do you have any diarrhea?: No Are you experiencing any unusual bleeding?: No Do you have any muscle aches/pain?: No Do you have any abdominal pain?: No Are you experiencing loss of taste or smell?: No Other Medical History Have you received the Flu Vaccine for this season: No Have you received the Pneumonia Vaccine: No <Rosina Morales, DO - Last Filed: 12/28/24 23:07> ROS Obtained: Yes All systems reviewed & no additional complaints except as documented and Yes Systems reviewed as appropriate & no additional complaints except as documented Physical Exam <Rsoina Morales, - Last Filed: 12/28/24 23:07> General General appearance: alert and in no apparent distress Head Head exam: atraumatic, normocephalic and normal inspection Eye Eye exam: Present normal appearance, PERRL and EOMI; Absent scleral icterus ENT ENT exam: Present normal exam and normal external ear exam Neck Neck exam: Present normal inspection and full ROM Chest Chest inspection: Present normal inspection, symmetric chest wall rise and other (Mildly diminished breath sounds bilaterally) Respiratory Respiratory exam: Present normal lung sounds bilaterally; Absent respiratory distress or wheezes Cardiovascular Cardiovascular exam: Present normal rhythm, tachycardia and normal heart sounds Abdominal Exam Abdominal exam: Present soft and distention; Absent tenderness, guarding or rebound Extremities Exam Extremities exam: Present normal inspection and full ROM Back Exam Back exam: Present normal inspection and full ROM Neurological Exam Neurological exam: Present alert and oriented X3 Psychiatric Psychiatric exam: Present normal affect and normal mood Skin Skin exam: Present warm and dry Medical Decision Making <Rosina Morales, - Last Filed: 12/28/24 23:07> Medical Records Medical records reviewed: Yes I reviewed the patient's medical records. Screening: Per USPSTF and CDC recommendations, given the prevalence of disease in our region, it is our hospital?s policy to screen for HIV and viral Hepatitis for all patients aged 18 and over and those with ongoing risk factors. Aden Inquiry Pt receiving controlled substance: No Vital Signs: 12/28/24 22:14 12/28/24 22:26 12/28/24 22:30 Temperature 98.9 F Temperature Source Oral Pulse Rate 61 105 H Pulse Rate [Right Radial] 86 Respiratory Rate 18 12 Blood Pressure 127/89 151/93 H Blood Pressure [Right Arm] 123/82 Blood Pressure Mean [Right Arm] 95 Blood Pressure Source [Right Arm] Automatic Cuff Blood Pressure Position [Right Arm] Sitting 02 Sat by Pulse Oximetry 96 98 98 Oxygen Delivery Method Room Air 12/28/24 23:01 Temperature Temperature Source Pulse Rate 95 H Pulse Rate [Right Radial] Respiratory Rate 21 Blood Pressure 151/93 H Blood Pressure [Right Arm] Blood Pressure Mean [Right Arm] Blood Pressure Source [Right Arm] Blood Pressure Position [Right Arm] 02 Sat by Pulse Oximetry 99 Oxygen Delivery Method Room Air Lab Data Lab results reviewed: Yes I reviewed the patient's lab results. Lab Results 12/28/24 22:23: POC Glucose 111 H 12/28/24 22:28: SARS-CoV-2 (PCR) Not detected, Influenza A Untype (PCR) Not detected, Influenza Type B (PCR) Not detected 12/28/24 22:44: WBC 11.2 H, RBC 5.98, Hgb 16.9, Hct 50.4, MCV 84.3, MCH 28.3, MCHC 33.5, RDW 13.3, Plt Count 301, MPV 9.9, Neut % (Auto) 53.3, Lymph % (Auto) 38.4, Ulster % (Auto) 5.5, Eos % (Auto) 2.1, Baso % (Auto) 0.4, Neut # (Auto) 6.0, Lymph # (Auto) 4.3, Ulster # (Auto) 0.6, Eos # (Auto) 0.2, Baso # (Auto) 0.0, D-Dimer 0.50, Sodium 139, Potassium 3.4 L, Chloride 103, Carbon Dioxide 27, Anion Gap 12.4, BUN 14, Creatinine 0.90, Estimated Creat Clear 137, Estimated GFR 97, Est GFR ( Amer) 117, Glucose 97, Calcium 9.8, Total Bilirubin 1.2, AST 26, ALT 24, Alkaline Phosphatase 80, Troponin I < 0.01, Total Protein 8.9 H, Albumin 4.4, Globulin 4.5 H, Albumin/Globulin Ratio 1.0 L, Lipase 164 12/28/24 23:24: VBG pH 7.39, VBG pCO2 42.0, VBG pO2 39.8, VBG HCO3 24.9, VBG Total CO2 26.1, VBG O2 Saturation 76.6 H, VBG Base Excess -0.1, VBG Lactic Acid 2.0 12/28/24 22:44 12/28/24 22:44 Orders (Tests/Meds): ED MEDICATIONS Discontinued Medications Generic Name Dose Route Start Last Admin Trade Name Keely PRN Reason Stop Dose Admin Albuterol/Ipratropium 3 ml 12/28/24 22:35 12/28/24 22:54 Ipratropium/Albuterol 3 Ml Neb IH 12/28/24 22:36 3 ml ONCE ONE Administration Sodium Chloride 1,000 mls @ 999 mls/hr 12/28/24 22:35 12/29/24 00:13 Sod Chlor 0.9% 1000ml Bag IV 12/28/24 23:35 Infused .Q1H1M ONE Infusion ORDERS Category Date Time Status CXR 2 view (NOT portable) [XR chest 2V] Stat Exams 12/28/24 22:33 Completed POCUS Point of Care (ER Only) Stat Exams 12/29/24 00:36 Ordered CBC w/Auto Diff [Complete Blood Count Auto Diff] Stat Lab 12/28/24 22:44 Completed CMP [Comprehensive Metabolic Panel] Stat Lab 12/28/24 22:44 Completed D-Dimer Stat Lab 12/28/24 22:44 Completed Lipase Stat Lab 12/28/24 22:44 Completed POC Glucose,Bedside Routine Lab 12/28/24 22:23 Completed Rapid PCR Covid and Flu A/B Stat Lab 12/28/24 22:28 Completed Trop I [Troponin I] Stat Lab 12/28/24 22:44 Completed Troponin I Q3H Lab 12/29/24 01:45 Ordered Troponin I Q3H Lab 12/29/24 04:45 Ordered VBG [Venous Blood Gas] Stat RT 12/28/24 23:24 Completed Medical Decision Narrative: Patient is a otherwise healthy 34-year-old male who presents to the emergency department with chest congestion, nasal congestion cough and a syncopal episode last night. On arrival, patient was mildly tachycardic but vital signs were otherwise unremarkable. Differential includes but not limited to: Myocarditis, pericarditis, ACS/WV, pneumothorax, pleural effusion, pulmonary embolism, hypovolemic syncope, bronchitis, pneumonia, amongst others. Plan to obtain labs, EKG and chest x-ray. Will give patient IV fluids and nebulizer with plan for reassessment. Labs were reviewed and interpreted by myself: CBC showed mild leukocytosis, hemoglobin was stable. Respiratory panel was negative. Chest x-ray was reviewed and interpreted by myself and showed no acute for consolidation, pneumothorax, pleural effusion or other acute cardiopulmonary process. Patient was signed out to the oncoming provider pending labs and reassessment and final disposition. <La Nena Tang MD - Last Filed: 12/29/24 00:52> Vital Signs: 12/28/24 22:14 12/28/24 22:26 12/28/24 22:30 Temperature 98.9 F Temperature Source Oral Pulse Rate 61 105 H Pulse Rate [Right Radial] 86 Respiratory Rate 18 12 Blood Pressure 127/89 151/93 H Blood Pressure [Right Arm] 123/82 Blood Pressure Mean [Right Arm] 95 Blood Pressure Source [Right Arm] Automatic Cuff Blood Pressure Position [Right Arm] Sitting 02 Sat by Pulse Oximetry 96 98 98 Oxygen Delivery Method Room Air 12/28/24 23:01 Temperature Temperature Source Pulse Rate 95 H Pulse Rate [Right Radial] Respiratory Rate 21 Blood Pressure 151/93 H Blood Pressure [Right Arm] Blood Pressure Mean [Right Arm] Blood Pressure Source [Right Arm] Blood Pressure Position [Right Arm] 02 Sat by Pulse Oximetry 99 Oxygen Delivery Method Room Air Lab Data Lab Results 12/28/24 22:23: POC Glucose 111 H 12/28/24 22:28: SARS-CoV-2 (PCR) Not detected, Influenza A Untype (PCR) Not detected, Influenza Type B (PCR) Not detected 12/28/24 22:44: WBC 11.2 H, RBC 5.98, Hgb 16.9, Hct 50.4, MCV 84.3, MCH 28.3, MCHC 33.5, RDW 13.3, Plt Count 301, MPV 9.9, Neut % (Auto) 53.3, Lymph % (Auto) 38.4, Ulster % (Auto) 5.5, Eos % (Auto) 2.1, Baso % (Auto) 0.4, Neut # (Auto) 6.0, Lymph # (Auto) 4.3, Ulster # (Auto) 0.6, Eos # (Auto) 0.2, Baso # (Auto) 0.0, D-Dimer 0.50, Sodium 139, Potassium 3.4 L, Chloride 103, Carbon Dioxide 27, Anion Gap 12.4, BUN 14, Creatinine 0.90, Estimated Creat Clear 137, Estimated GFR 97, Est GFR ( Amer) 117, Glucose 97, Calcium 9.8, Total Bilirubin 1.2, AST 26, ALT 24, Alkaline Phosphatase 80, Troponin I < 0.01, Total Protein 8.9 H, Albumin 4.4, Globulin 4.5 H, Albumin/Globulin Ratio 1.0 L, Lipase 164 12/28/24 23:24: VBG pH 7.39, VBG pCO2 42.0, VBG pO2 39.8, VBG HCO3 24.9, VBG Total CO2 26.1, VBG O2 Saturation 76.6 H, VBG Base Excess -0.1, VBG Lactic Acid 2.0 Orders (Tests/Meds): ED MEDICATIONS Discontinued Medications Generic Name Dose Route Start Last Admin Trade Name Freq PRN Reason Stop Dose Admin Albuterol/Ipratropium 3 ml 12/28/24 22:35 12/28/24 22:54 Ipratropium/Albuterol 3 Ml Neb IH 12/28/24 22:36 3 ml ONCE ONE Administration Sodium Chloride 1,000 mls @ 999 mls/hr 12/28/24 22:35 12/29/24 00:13 Sod Chlor 0.9% 1000ml Bag IV 12/28/24 23:35 Infused .Q1H1M ONE Infusion ORDERS Category Date Time Status CXR 2 view (NOT portable) [XR chest 2V] Stat Exams 12/28/24 22:33 Completed POCUS Point of Care (ER Only) Stat Exams 12/29/24 00:36 Ordered CBC w/Auto Diff [Complete Blood Count Auto Diff] Stat Lab 12/28/24 22:44 Completed CMP [Comprehensive Metabolic Panel] Stat Lab 12/28/24 22:44 Completed D-Dimer Stat Lab 12/28/24 22:44 Completed Lipase Stat Lab 12/28/24 22:44 Completed POC Glucose,Bedside Routine Lab 12/28/24 22:23 Completed Rapid PCR Covid and Flu A/B Stat Lab 12/28/24 22:28 Completed Trop I [Troponin I] Stat Lab 12/28/24 22:44 Completed Troponin I Q3H Lab 12/29/24 01:45 Ordered Troponin I Q3H Lab 12/29/24 04:45 Ordered VBG [Venous Blood Gas] Stat RT 12/28/24 23:24 Completed Medical Decision Narrative: Patient is a otherwise healthy 34-year-old male who presents to the emergency department with chest congestion, nasal congestion cough and a syncopal episode last night. On arrival, patient was mildly tachycardic but vital signs were otherwise unremarkable. Differential includes but not limited to: Myocarditis, pericarditis, ACS/WV, pneumothorax, pleural effusion, pulmonary embolism, hypovolemic syncope, bronchitis, pneumonia, amongst others. Plan to obtain labs, EKG and chest x-ray. Will give patient IV fluids and nebulizer with plan for reassessment. Labs were reviewed and interpreted by myself: CBC showed mild leukocytosis, hemoglobin was stable. Respiratory panel was negative. Chest x-ray was reviewed and interpreted by myself and showed no acute for consolidation, pneumothorax, pleural effusion or other acute cardiopulmonary process. Patient was signed out to the oncoming provider pending labs and reassessment and final disposition. Tang: Upon my assumption of care patient is stable and resting comfortably. Patient reports his chest pain is not truly chest pain but an ache when he coughs. He states he feels like his muscles are tired from all the coughing he has been doing but does not feel like cardiac pain according to him. Patient reports feeling improved after the intervention from Dr. Morales. Labs reviewed by me are not acutely actionable. VBG with normal pH and no hypercarbia. Chest x-ray personally interpreted demonstrates no lobar infiltrate or other acute intrathoracic abnormality, initial troponin undetectably low less than 0.01 significantly reassuring in the setting of nonischemic ECG and absence of chest pain at this time. Given patient's duration of symptoms I do not believe serial troponins are indicated. I had considered the possibility of endocarditis in this patient given his history of IV drug use but he states he has not used in over a year and denies any history of bacterial infection of the blood or heart. Labs are reassuring against this as are his symptoms, and his [id number] ultrasound is reassuring. I performed [id number] ultrasound of the heart and do not appreciate any acute abnormalities. See procedure note for details. I believe patient is appropriate for discharge at this time and he is comfortable with this plan. I gave prescription for Zofran, guaifenesin, benzonatate. I gave the patient instructions on use of these medications. I provided referral to cardiology for his syncopal episodes though I do not appreciate any evidence that they are high risk and ECG does not show any evidence of arrhythmogenic abnormalities. Patient was given instructions on symptomatic management, follow up instructions, and return precautions for the emergency department. Patient indicated understanding and was discharged in stable condition. Procedures <La Nena Tang MD - Last Filed: 12/29/24 00:52> Miscellaneous Procedure Procedure Performed: Limited Cardiac Ultrasound Performed by: La Nena Tang MD Indication: Syncope Identified cardiac views: [-Cardiac parasternal long axis] [-Cardiac parasternal short axis] [-Cardiac apical four-chamber] [-Cardiac subxiphoid] Findings: Cardiac activity present, no gross wall motion abnormality, no pericardial effusion, no right heart strain Impression: Cardiac activity present, no gross wall motion abnormality, no pericardial effusion, no right heart strain Images were saved to permanent archive The study was technically adequate CPT: 64452 This study was performed by me, and I personally interpreted all images/videos. Based on my clinical judgement, these images were adequate and did not necessitate further imaging. Critical Care <Rosina Morales DO - Last Filed: 12/28/24 23:07> Critical Care Time Critical Care Time: No
[2024-12-28 22:51] LABS: Hematocrit 50.4 % (42.0-52.0); Hemoglobin 16.9 g/dL (14.1-18.0); Immature Granulocytes % 0.3 %; Mean Corpuscular HGB Conc 33.5 g/dL (31.8-35.4); Mean Corpuscular Hemoglobin 28.3 pg (27.0-31.2); Mean Corpuscular Volume 84.3 fl (80-94); Nucleated Red Blood Cells % 0 %; Platelet Count 301 K/mm3 (142-424); Red Blood Count 5.98 M/mm3 (4.60-6.20); Red Cell Distribution Width-SD 41.2 fL; White Blood Count 11.2 K/mm3 (4.8-10.8)
[2024-12-28] MEDS: 0.9 % SODIUM CHLORIDE 1000ML 1,000 ML 999 ML IV (22:54)
[2024-12-28] MEDS: IPRATROPIUM/ALBUTEROL 3 ML NEB IH (22:54)
--- NOTE | 2024-12-28 22:55 | ECG_ITS ---
APPROVED REPORT Exam: Resting ECG HR:65 bpm ECG Measurements Heart Rate 65 AXES SD 150 P 51 QRSd 96 QRS 57 QT 363 T 9 QTc 374 Conclusion SINUS RHYTHM NORMAL ECG Electronically signed by : CLAUDIA WOODARD, 12/29/2024 22:37:28
[2024-12-28 23:01] VITALS: BP 151/93; PULSE 95; RESP 21; O2SAT 99
[2024-12-28 23:02] LABS: Alanine Aminotransferase 24 U/L (12-78); Albumin Level 4.4 g/dl (3.5-5.0); Albumin/Globulin Ratio 1.0 (1.1-1.8); Alkaline Phosphatase 80 U/L (38-126); Anion Gap 12.4 mEq/L (5-15); Aspartate Amino Transferase 26 U/L (17-59); Bilirubin,Total 1.2 mg/dl (0.2-1.3); Blood Urea Nitrogen 14 mg/dl (9-20); Calcium 9.8 mg/dl (8.4-10.2); Carbon Dioxide 27 mmol/L (22.0-30.0); Chloride 103 mmol/L (98-107); Creatinine Clearance Estimated 137 mL/min (50-200); Creatinine,Serum 0.90 mg/dl (0.66-1.25); Estimated Glomerular Filt Rate 97 ml/min (>60); GFR (African American) 117 ML/MIN (>60); Globulin 4.5 g/dL (1.3-3.2); Glucose 97 mg/dl (74-100); Lipase 164 U/L (23-300); Potassium 3.4 mmoL/L (3.5-5.1); Sodium 139 mmol/L (136-145); Total Protein,Serum 8.9 g/dl (6.3-8.2)
[2024-12-28 23:06] LABS: D-Dimer 0.50 ug/mL (0.0-0.5)
[2024-12-28 23:17] LABS: Troponin I < 0.01 ng/ml (0.00-0.034)
[2024-12-28 23:48] LABS: Lactate Venous 2.0 mmol/L (0.4-2.0); VBG HCO3 24.9 mmol/L (23-30); VBG PCO2 42.0 mmol/L (35-51); VBG PH 7.39 mmol/L (7.31-7.41); VBG PO2 39.8 mmol/L (28-40)
[2024-12-29 00:48] VITALS: BP 142/96; PULSE 65; PULSE 67; RESP 13; RESP 18; TEMP 36.6; O2SAT 64; O2SAT 96
== END 2024-12-29 00:58 | disposition home or self-care (01) ==
PROVIDERS: Emergency Medicine; Emergency Provider Student in an Organized Health Care Education/Training Program; PCP Nurse Practitioner Family
DX: R55 Syncope and collapse (principal); R11.0 Nausea; R05.1 Acute cough; F17.210 Nicotine dependence, cigarettes, uncomplicated
CPT/HCPCS: 71046; 80053; 82803; 82962; 83690; 84484; 85025; 85378; 87636; 93005; 96360; 99285; J7030

== ENCOUNTER 2025-02-10 20:38 | Emergency (ER) | payer OTHER, SELFPAY ==
--- OUTSIDE RECORDS SUMMARY | 2023-10-26 04:00 | XMS_ITS ---
Author Organization [facility] Address [address] [place] [address] Phone [phone] Care Team Providers Care Carcass Washer Name Role Phone Ely Fuchs Unavailable [phone] Migration, Provider Unavailable Unavailable REASON FOR VISIT TelEnc Encounters Encounter Location Date Provider Diagnosis [address] [address] 10/26/2023 Provider Migration Plan Of Treatment No Information Progress Notes * MILY RUBIOB:1990 (34 yo M)Acc No.[id number]:10/26/2023 Patient: Amaris MARISSA SAHU :1990 A ge:32 Y S ex:Male Address:[address] [place] [address] [address] [place], [address] Subjective: * Chief Complaints: * T elEnc * * Date:
--- OUTSIDE RECORDS SUMMARY | 2023-12-02 04:00 | XMS_ITS ---
Author Organization [facility] Address [address] [place] [address] Phone [phone] Care Team Providers Care Mold Stacker Name Role Phone Ely Fuchs Unavailable [phone] Migration, Provider Unavailable Unavailable REASON FOR VISIT EMR-Carter Encounters Encounter Location Date Provider Diagnosis [facility] [address] [place] [address] 12/02/2023 Provider Migration Unspecified mood [affective] disorder F39 and Insomnia, unspecified G47.00 Assessments Encounter Date Diagnosis (ICD Code) Assessment Notes Treatment Notes Treatment Clinical Notes Section Notes 12/02/2023 Unspecified mood [affective] disorder (ICD-10 - F39) 12/02/2023 Insomnia, unspecified (ICD-10 - G47.00) Plan Of Treatment No Information Progress Notes * MILY RUBIOB:1990 (34 yo M)Acc No.[id number]:12/02/2023 Patient: MARISSA SILVER Provider: Naomie coon Migration :1990 A ge:32 Y S ex:Male Date:12/02/2023 Address:[address] [place] [address] [place] [place] Subjective: * Chief Complaints: * E MR-Carter Assessment: * Assessment: 1. U nspecified mood [affective] disorder - F39 2 . I nsomnia, unspecified - G47.00 * Electronic signature of Prov ider Migration on 02/10/2025 at 08:54 PM EST Sign off status: Pending * Provider: Naomie coon Migration Date: 1 Generated for Janet hudson/Billy/eTransmitting on: 04/13/2024 08:54 PM EST
--- OUTSIDE RECORDS SUMMARY | 2023-12-02 04:00 | XMS_ITS ---
Author Organization [facility] Address [address] [place] [address] Phone [phone] Care Team Providers Care Tire Spotter Name Role Phone Ely Fuchs Unavailable [phone] Migration, Provider Unavailable Unavailable REASON FOR VISIT TelEnc Encounters Encounter Location Date Provider Diagnosis [address] [address] 12/02/2023 Provider Migration Plan Of Treatment No Information Progress Notes * IMLY RUBIOB:1990 (34 yo M)Acc No.[id number]:12/02/2023 Patient: Amaris MARISSA SAHU :1990 A ge:32 Y S ex:Male Address:[address] [place] [address] [address] [facility] [place], [address] Subjective: * Chief Complaints: * T elEnc * * Date:
--- OUTSIDE RECORDS SUMMARY | 2023-12-13 07:30 | XMS_ITS ---
Author Organization [facility] Address [address] [place] [address] Phone [phone] Care Team Providers Care Media Developer Name Role Phone Ely Fuchs Unavailable [phone] Vital Signs Temperature 97.3 degrees Fahrenheit 12/13/19 24 Blood pressure systolic 120 mm Hg 12/13/19 24 Blood pressure diastolic 77 mm Hg 024 Height 65.00 in 12/13/2023 Weight 200.00 lbs 12/13/2023 BMI 33.3 kg/m2 12/13/2023 Oximetry 97 % 12/13/2023 Height-cm 165.10 cm 12/13/2023 Weight-kg 90.72 kg 12/13/2023 Encounters Encounter Location Date Provider Diagnosis [facility] [address] [place] [address] 12/13/2023 Ely Jef Insomnia, unspecifie d G47.00 ; Unspecified mood [affective] disorder F39 ; Myalgia, unspecified site M79.10 and Encounter for issue of repeat prescription Z76.0 Assessments Encounter Date Diagnosis (ICD Code) Assessment Notes Treatment Notes Treatment Clinical Notes Section Notes 12/13/2023 Insomnia, unspecified (ICD-10 - G47.00) 12/13/2023 Unspecified mood [affective] disorder (ICD-10 - F39) 12/13/2023 Myalgia, unspecified site (ICD-10 - M79.10) 12/13/2023 Encounter for issue of repeat prescription (ICD-10 - Z76.0) Plan Of Treatment No Information Progress Notes * MILY RUBIOB:1990 (34 yo M)Acc No.[id number]:12/13/2023 Progress Notes Patient: MARISSA SILVER Provider: Andres Fuchs APRN, PhD :1990 A ge:32 Y S ex:Male Date:12/13/2023 Address:[address] [place] [address] , [place], [id number] Objective: * Vitals: B P: 120/77 mm Hg, Temp: 97.3 F, Oxygen sat %: 97 %, Wt: 200.00 lbs, Wt-k.72 kg, Ht: 65.00 in, Ht-cm: 165.10 cm, BMI: 33.3 Index. Assessment: * Assessment: 1. U nspecified mood [affective] disorder - F39 2 . I nsomnia, unspecified - G47.00 3 . E ncounter for issue of repeat prescription - Z76.0 ?4. M yalgia, unspecified site - M79.10 * Electronic signature of SHANNON Andrew on 02/10/2025 at 08:54 PM EST Sign off status: Pending * Provider: Andres Fuchs APRN, PhD Date: Generated for Janet hudson/Billy/eTransmitting on: 04/13/2024 08:54 PM EST
--- OUTSIDE RECORDS SUMMARY | 2023-12-27 07:30 | XMS_ITS ---
Author Organization [facility] Address [address] [place] [address] Phone [phone] Care Team Providers Care Asian Art Curator Name Role Phone JefBeckiEly Unavailable [phone] Vital Signs Temperature 97.1 degrees Fahrenheit 12/27/19 24 Blood pressure systolic 131 mm Hg 12/27/19 24 Blood pressure diastolic 77 mm Hg 024 Height 65.00 in 12/27/2023 Weight 218.20 lbs 12/27/2023 BMI 36.3 kg/m2 12/27/2023 Oximetry 96 % 12/27/2023 Height-cm 165.10 cm 12/27/2023 Weight-kg 98.97 kg 12/27/2023 Encounters Encounter Location Date Provider Diagnosis [facility] [address] [place] [address] 12/27/2023 Ely Fuchs Unspecified mood [affective] disorder F39 ; Pain, unspecified R52 ; Encounter for therapeutic drug level monitoring Z51.81 and Encounter for issue of repeat prescription Z76.0 Assessments Encounter Date Diagnosis (ICD Code) Assessment Notes Treatment Notes Treatment Clinical Notes Section Notes 12/27/2023 Unspecified mood [affective] disorder (ICD-10 - F39) 12/27/2023 Pain, unspecified (ICD-10 - R52) 12/27/2023 Encounter for therapeutic drug level monitoring (ICD-10 - Z51.81) 12/27/2023 Encounter for issue of repeat prescription (ICD-10 - Z76.0) Plan Of Treatment No Information Progress Notes * MILY RUBIOB:1990 (34 yo M)Acc No.[id number]:12/27/2023 Progress Notes Patient: Amaris LUIS ALBERTO MARISSA Provider: Andres Fuchs APRN, PhD :1990 A ge:33 Y S ex:Male Date:12/27/2023 Address:[address] [place] [address] , [place], [id number] Objective: * Vitals: B P: 131/77 mm Hg, Temp: 97.1 F, Oxygen sat %: 96 %, Wt: 218.20 lbs, Wt-k.97 kg, Ht: 65.00 in, Ht-cm: 165.10 cm, BMI: 36.3 Index. Assessment: * Assessment: 1. U nspecified mood [affective] disorder - F39 2 . P ain, unspecified - R52 3 . E ncounter for therapeutic drug level monitoring - Z51.81 4 . E ncounter for issue of repeat prescription - Z76.0 * Electronic signature of SHANNON Andrew on 02/10/2025 at 08:55 PM EST Sign off status: Pending * Provider: Andres Fuchs APRN, PhD Date: Generated for Janet hudson/Billy/eTjoannasmitting on: 04/13/2024 08:55 PM EST
--- OUTSIDE RECORDS SUMMARY | 2024-02-02 04:00 | XMS_ITS ---
Author Organization [facility] Address [address] [place] [address] Phone [phone] Care Team Providers Care Baller Tender Name Role Phone Ely Fuchs Unavailable [phone] Migration, Provider Unavailable Unavailable REASON FOR VISIT EMR-Carter Encounters Encounter Location Date Provider Diagnosis [facility] [address] [place] [address] 02/02/2024 Provider Migration Insomnia, unspecified G47.00 and Unspecified mood [affective] disorder F39 Assessments Encounter Date Diagnosis (ICD Code) Assessment Notes Treatment Notes Treatment Clinical Notes Section Notes 02/02/2024 Insomnia, unspecified (ICD-10 - G47.00) 02/02/2024 Unspecified mood [affective] disorder (ICD-10 - F39) Plan Of Treatment No Information Progress Notes * MILY RUBIOB:1990 (34 yo M)Acc No.[id number]:02/02/2024 Patient: MARISSA SILVER Provider: Naomie coon Migration :1990 A ge:33 Y S ex:Male Date:02/02/2024 Address:[address] [place] [address] [place] [facility] Subjective: * Chief Complaints: * E MR-Carter Assessment: * Assessment: 1. U nspecified mood [affective] disorder - F39 2 . I nsomnia, unspecified - G47.00 * Electronic signature of Prov ider Migration on 02/10/2025 at 08:55 PM EST Sign off status: Pending * Provider: Naomie wickder Migration Date: 04/04/2023 Generated for Janet hudson/Billy/eTransmitting on: 04/13/2024 08:55 PM EST
--- OUTSIDE RECORDS SUMMARY | 2024-02-02 04:00 | XMS_ITS ---
Author Organization [facility] Address [address] [place] [address] Phone [phone] Care Team Providers Care Tooling Engineering Tech Name Role Phone Ely Fuchs Unavailable [phone] Migration, Provider Unavailable Unavailable REASON FOR VISIT TelEnc Encounters Encounter Location Date Provider Diagnosis [address] [address] 02/02/2024 Provider Migration Plan Of Treatment No Information Progress Notes * MILY RUBIOB:1990 (34 yo M)Acc No.[id number]:02/02/2024 Patient: Amaris MARISSA SAHU :1990 A ge:33 Y S ex:Male Address:[address] [place] [address] [place], [address] Subjective: * Chief Complaints: * T elEnc * * Date:
--- OUTSIDE RECORDS SUMMARY | 2024-02-14 09:00 | XMS_ITS ---
Author Organization [facility] Address [address] [place] [address] Phone [phone] Care Team Providers Care Picker Feeder Name Role Phone Jef Ely Lore [phone] Vital Signs Temperature 97.1 degrees Fahrenheit 02/14/20 24 Blood pressure systolic 144 mm Hg 02/14/20 24 Blood pressure diastolic 87 mm Hg 024 Height 65.00 in 02/14/2024 Weight 225.80 lbs 02/14/2024 BMI 37.6 kg/m2 02/14/2024 Oximetry 98 % 02/14/2024 Height-cm 165.10 cm 02/14/2024 Weight-kg 102.42 kg 02/14/2024 Encounters Encounter Location Date Provider Diagnosis [facility] [address] [place] [address] 02/14/2024 Ely Fuchs Encounter for issue of repeat prescription Z76.0 ; Encounter for therapeutic drug level monitoring Z51.81 ; Insomnia, unspecified G47.00 and Myalgia, unspecified site M79.10 Assessments Encounter Date Diagnosis (ICD Code) Assessment Notes Treatment Notes Treatment Clinical Notes Section Notes 02/14/2024 Encounter for issue of repeat prescription (ICD-10 - Z76.0) 02/14/2024 Encounter for therapeutic drug level monitoring (ICD-10 - Z51.81) 02/14/2024 Insomnia, unspecified (ICD-10 - G47.00) 02/14/2024 Myalgia, unspecified site (ICD-10 - M79.10) Plan Of Treatment No Information Progress Notes * MILY RUBIOB:1990 (34 yo M)Acc No.[id number]:02/14/2024 Progress Notes Patient: MARISSA SILVER Provider: Andres Fuchs APRN, PhD :1990 A ge:33 Y S ex:Male Date:02/14/2024 Address:[address] [place] [address] , [place], [id number] Objective: * Vitals: B P: 144/87 mm Hg, Temp: 97.1 F, Oxygen sat %: 98 %, Wt: 225.80 lbs, Wt-k.42 kg, Ht: 65.00 in, Ht-cm: 165.10 cm, BMI: 37.6 Index. Assessment: * Assessment: 1. I nsomnia, unspecified - G47.00 2 . E ncounter for therapeutic drug level monitoring - Z51.81 3 . E ncounter for issue of repeat prescription - Z76.0? 4. M yalgia, unspecified site - M79.10 * Electronic signature of SHANNON Andrew on 02/10/2025 at 08:53 PM EST Sign off status: Pending * Provider: Andres Fuchs APRN, PhD Date: 04/16/2023 Generated for Janet hudson/Billy/eTransmitting on: 04/13/2024 08:53 PM EST
--- OUTSIDE RECORDS SUMMARY | 2024-09-29 04:00 | XMS_ITS ---
Author Organization [facility] Address [address] [place] [address] Phone [phone] Care Team Providers Care Vice President Risk Management Name Role Phone Ely Fuchs Unavailable [phone] Migration, Provider Unavailable Unavailable REASON FOR VISIT EMR-Carter Encounters Encounter Location Date Provider Diagnosis [address] [address] 09/29/2024 Provider Migration Plan Of Treatment No Information Progress Notes * MILY RUBIOB:1990 (34 yo M)Acc No.[id number]:09/29/2024 Patient: Amaris MARISSA SAHU :1990 A ge:33 Y S ex:Male Address:[address] [place] [address] [place], [address] Subjective: * Chief Complaints: * E MR-Carter * * Date:
--- OUTSIDE RECORDS SUMMARY | 2024-09-30 04:00 | XMS_ITS ---
Author Organization [facility] lionel [facility] Address [address] [place] [address] Phone [phone] Care Team Providers Care Leach Tank Tender Name Role Phone Ely Fuchs Unavailable [phone] Migration, Provider Unavailable Unavailable Allergies Allergen (clinical drug ingredient) Drug/Non Drug Allergy documented on EMR Reaction Allergy Type Onset Date Status ziprasidone Geodon Unknown Drug Allergy 02/14/2024 Acti ve REASON FOR VISIT EMR-Carter Medications Medication SIG (Take, Route, Frequency, Duration) Notes Start Date End Date Status Ibuprofen 800 MG Tablet Oral 02/14/2024 Active DULoxetine HCl 30 MG Capsule Delayed Release Particles Oral 02/14/2024 Ac tive Artificial Tears 1-0.3 % Solution Ophthalmic 02/14/2024 Active Depakote 250 MG Tablet Delayed Release Oral 02/14/2024 Active Cyclobenzaprine HCl 10 MG Tablet Oral 02/14/2024 Active traZODone HCl 50 MG Tablet Oral 02/14/2024 Active Divalproex Sodium 250 MG Tablet Delayed Release Oral 02/14/2024 Activ e hydrOXYzine HCl 25 MG Tablet Oral 02/14/2024 Active Social History Social History Additional Details Category Social Info Options Details Migrated Social History Migrated Social History Alcohol Intake: Moderate 09/07/2023,Tobacco Years: Former smoker 09/07/2023,Smoking Status: 19 09/07/2023 Encounters Encounter Location Date Provider Diagnosis [address] [address] 09/30/2024 Provider Migration Plan Of Treatment No Information Progress Notes * MILY RUBIOB:1990 (34 yo M)Acc No.[id number]:09/30/2024 Patient: Amaris MARISSA SAHU :1990 A ge:33 Y S ex:Male Address:[address] [place] [address] [place] [facility] [address] Subjective: * Chief Complaints: * E MR-Carter * Medical History: Problems: Acute sinusitis Anxiety Constipation Cough Dry eyes History of calculus of kidney Initial insomnia Mental disorder Mood disorder Musculoskeletal pain Renewal of prescription * Social History: M igrated Social History: M igrated Social History: Alcohol Intake: Moderate 09/07/2023,Tobacco Years: Former smoker 09/07/2023,Smoking Status: 19 09/07/2023. * Medications: T akingCyclobenzaprine HCl 10 MG Tablet Oral Divalproex Sodium 250 MG Tablet Delayed Release Oral hydrOXYzine HCl 25 MG Tablet Oral DULoxetine HCl 30 MG Capsule Delayed Release Particles Oral traZODone HCl 50 MG Tablet Oral Artificial Tears 1-0.3 % Solution Ophthalmic Depakote 250 MG Tablet Delayed Release Oral Ibuprofen 800 MG Tablet Oral Taking Cyclobenzaprine HCl 10 MG Tablet Oral Taking Divalproex Sodium 250 MG Tablet Delayed Release Oral Taking hydrOXYzine HCl 25 MG Tablet Oral Taking DULoxetine HCl 30 MG Capsule Delayed Release Particles Oral Taking traZODone HCl 50 MG Tablet Oral Taking Artificial Tears 1-0.3 % Solution Ophthalmic Taking Depakote 250 MG Tablet Delayed Release Oral Taking Ibuprofen 800 MG Tablet Oral * Allergies: G eodon: Allergy - Onset Date 02/14/2024 * * Date:
[2025-02-10 20:54] VITALS: BP 135/72; PULSE 94; RESP 18; TEMP 37; O2SAT 98; BMI 29.9
--- OUTSIDE RECORDS SUMMARY | 2025-02-10 20:54 | XMS_ITS | Patient Health Record ---
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 Role Phone Ely Fuchs Unavailable [phone] Migration, Provider Unavailable Unavailable Reason For Referral [...] W/U Status Risk Notes Problem Affective psychosis (575341942) Unspecified mood [affective] disorder (F39) 02/02/20 24 Active confirmed Problem Anxiety disorder (319105060) Anxiety disorder, unspecified (F41.9) 10/26/19 24 Active confirmed Problem Insomnia (073988812) Insomnia, unspecified (G47.00) 02/14/20 24 Active confirmed Problem Tear film insufficiency (19721285) Dry eye syndrome of bilateral lacrimal glands (H04.123) 09/07/19 24 Active confirmed Problem Acute sinusitis (90395178) Acute sinusitis, unspecified (J01.90) 09/07/19 Active confirmed Problem Constipation (04749655) Constipation, unspecified (K59.00) 09/07/19 Active confirmed Problem Pain (13806672) Pain, unspecifie d (R52) 12/27/19 Active confirmed Problem Sexually transmitted infectious disease (9729814) Encounter for screening for infections with a predominantly sexual mode of transmission (Z11.3) 09/07/19 Active confirmed Problem Screening for cardiovascular system disease (099970194) Encounter for screening for cardiovascular disorders (Z13.6) 09/07/19 Active confirmed Problem Screening procedure (36253823) Encounter for screening, unspecified (Z13.9) 09/07/19 Active confirmed Problem Therapeutic drug monitoring, quantitative (regime/therapy) (52885703) Encounter for therapeutic drug level monitoring (Z51.81) 02/14/20 Active confirmed Problem Repeated prescription (700101165) Encounter for issue of repeat prescription (Z76.0) 02/14/20 Active confirmed Problem History of urinary stone (324329279) Personal history of urinary calculi (Z87.442) 10/26/19 Active confirmed Problem Muscle pain (20087681) Myalgia, unspecified site (M79.10) 02/14/20 Active confirmed Problem Cough (finding) (59346019) Cough, unspecified (R05.9) 09/07/19 Active confirmed Vital Signs Temperature 97.1 degrees Fahrenheit 02/14/2024 Height-cm 165.10 cm 02/14/2024 Oximetry 98 % 02/14/2024 Blood pressure diastolic 87 mm Hg 02/14/2024 Weight-kg 102.42 kg 02/14/2024 Height 65.00 in 02/14/2024 Blood pressure systolic 144 mm Hg 02/14/2024 Weight 225.80 lbs 02/14/2024 BMI 37.6 kg/m2 02/14/2024 Encounters Encounter Location Date Provider Diagnosis [address] [address] 02/14/2024 Ely Fuchs Encounter for issue of repeat prescription Z76.0 ; Encounter for therapeutic drug level monitoring Z51.81 ; Insomnia, unspecified G47.00 and Myalgia, unspecified site M79.10 [facility], [facility] [address] [place] [address] 09/29/2024 Provider Migration [facility] [address] [place] [address] 09/30/2024 Provider Migration Assessments Encounter Date Diagnosis (ICD Code) Assessment Notes Treatment Notes Treatment Clinical Notes Section Notes 02/14/2024 Insomnia, unspecified (ICD-10 - G47.00) 02/14/2024 Encounter for therapeutic drug level monitoring (ICD-10 - Z51.81) 02/14/2024 Encounter for issue of repeat prescription (ICD-10 - Z76.0) 02/14/2024 Myalgia, unspecified site (ICD-10 - M79.10) Plan Of Treatment No Information Insurance Providers Payer Name Payer Address Payer Phone Subscriber Number Group Number Insured Name Patient Relationship to Insured Coverage Start Date Coverage End Date [employer] [facility] (Medicaid Replacement - [place]) [address] [place] [phone] [id number] MARISSA RUBI Self - patient is the insured
--- OUTSIDE RECORDS SUMMARY | 2025-02-10 20:55 | XMS_ITS | Patient Health Record ---
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 Role Phone Erin Hackettra Primary Care [...] Status Risk Notes Problem Generalized anxiety disorder (08282523) FELECIA (generalized anxiety disorder) (F41.1) Active confirmed Problem Insomnia (574135079) Insomnia, unspecified type (G47.00) Active confirmed Problem Obese class I (971562086280136 ) BMI 33.0-33.9,adult (Z68.33) Active confirmed Problem Mild major depression, single episode (51455735) Current mild episode of major depressive disorder without prior episode (F32.0) Active confirmed Problem Mixed bipolar I disorder (22419676) Bipolar affective disorder, current episode mixed, current episode severity unspecified (F31.60) Active confirmed Problem Substance use disorder (3773674308) Substance use disorder (F19.90) Active confirmed Plan Of Treatment Pending Test Test Name Order Date Albumin/Creatinine Ratio,Urine 3 Insurance Providers Payer Name Payer Address Payer Phone Subscriber Number Group Number Insured Name Patient Relationship to Insured Coverage Start Date Coverage End Date [facility] Medicaid [address] [address] [place] [address] [id number] [address] [employer] Self - patient is the [...]
--- NOTE | 2025-02-10 21:02 | XR_ITS ---
PROCEDURE INFORMATION: Exam: XR Right Hand Exam date and time: 02/10/2025 8:57 PM Age: 34 years old Clinical indication: Injury or trauma; Other: Punched a metal locker; Other: Pain; Additional info: 4th and 5th metacarpal pain TECHNIQUE: Imaging protocol: Radiologic exam of the right hand. Views: 3 or more views. Total images: 3 COMPARISON: CR XR HAND RT MIN 3V 09/26/2021 12:35 PM FINDINGS: Bones/joints: Acute nondisplaced boxer's fracture neck of the 5th metacarpal. No additional acute osseous abnormalities. No joint dislocations. Unremarkable joint spaces. No concerning bone lesions. Remote deformity 1st metacarpal. Soft tissues: Mild soft tissue swelling at the fracture site. IMPRESSION: 1. Acute nondisplaced boxer's fracture neck of the 5th metacarpal.
[2025-02-10] MEDS: IBUPROFEN 800 MG TABLET PO (21:41)
--- NOTE | 2025-02-10 21:44 | ED_ITS ---
<Statement entered by Rosina Morales DO - 02/10/25 23:55> I was consulted by the BECCA, and we discussed the complexity of problems being addressed. I approve the treatment and management plan for this patient's care in the emergency department, thus performing a substantial portion of the medical decision making. Rosina Morales DO Discharge Plan Disposition Patient Disposition: Home, Self-Care Condition: Good Prescriptions Prescriptions: New oxycodone 5 mg tablet 5 mg PO DAILY Qty: 6 0RF No Action divalproex 250 mg tablet,delayed release (DR/EC) 250 mg PO DAILY trazodone 50 mg tablet 50 mg PO DAILY ibuprofen 800 mg tablet 800 mg PO TID PRN (Reason: pain) Qty: 30 0RF Rx Instructions: May start 12/04/23. cyclobenzaprine 10 mg Tablet 10 mg PO BID PRN (Reason: Muscle Spasm) Qty: 20 0RF methylprednisolone 4 mg Tablets,Dose Pack 4 mg PO DIRECTED 6 Days Qty: 21 0RF Rx Instructions: Take 1 pack as directed for 6 days docusate sodium 100 mg capsule 100 mg PO DAILY PRN (Reason: constipation) Qty: 30 0RF ondansetron 4 mg tablet,disintegrating 4 mg PO Q6H PRN (Reason: nausea and vomiting) Qty: 10 0RF benzonatate 100 mg capsule 100 mg PO TID PRN (Reason: cough) Qty: 14 0RF guaifenesin 600 mg tablet extended release 12hr 600 mg PO BID PRN (Reason: congestion) Qty: 10 0RF Referrals Follow up/Referrals: Emanuel Limon DO [Staff Physician, Orthopedics] - See instructions Provider,Referral, [Primary Care Provider, Medical] - See instructions Activity Restrictions/Add. Instructions Additional Instructions/Restrictions: You were seen for a boxer's fracture. Please return here if you have any severe pain, discoloration to your fingers or numbness. Please follow-up with the orthopedist this week. Clinical Impressions Clinical Impression: Boxer's fracture Instructions Patient Instructions: Boxer's Fracture Print Language Print Language: Irish Discharge ED Provider: Rosina Morales General Adult HPI <DANIELITO Caballero - Last Filed: 02/10/25 21:59> General Chief complaint: PAIN Stated complaint: possible broke right wrist Time Seen by Provider: 02/10/25 20:54 Mode of Arrival: Ambulatory Source of Information: Patient Description of Symptoms (Recalled from ER Triage Doc. by RN): pt reports he punched a metal locker at work 1hr prior to arrival and no complains of pain in his right hand in the last two knuckles. History of Present Illness HPI narrative: Patient presents complaining of right hand pain. He reports that he punched a locker about 1 hour ago. He has not had any medication prior to arrival. Denies any fevers or vomiting. MD complaint: Hand pain Onset (ago): hour(s) Location: right and upper extremity Radiation: non-radiation Severity: moderate Consistency: constant Relieving factors: none Exacerbating factors: none Associated symptoms: denies other symptoms Treatments prior to arrival: none Related Data Home Medications ?Medication ?Instructions ?Recorded ?Confirmed divalproex 250 mg tablet,delayed 250 mg PO DAILY 12/0212/18/23 release trazodone 50 mg tablet 50 mg PO DAILY 12/03/2311/29 Previous Rx's ?Medication ?Instructions ?Recorded ibuprofen 800 mg tablet 800 mg PO TID PRN pain #30 t abs 12/03/23 cyclobenzaprine 10 mg tablet 10 mg PO BID PRN Muscle S pasm #20 12/18/23 tabs methylprednisolone 4 mg tablets in 4 mg PO DIRECTED 6 days #21 tabs 12/18/23 a dose pack docusate sodium 100 mg capsule 100 mg PO DAILY PRN con stipation 12/16/24 #30 caps benzonatate 100 mg capsule 100 mg PO TID PRN cough #14 caps 12/29/24 guaifenesin 600 mg tablet, 600 mg PO BID PRN congestio n #10 12/29/24 extended release 12 hr tabs ondansetron 4 mg disintegrating 4 mg PO Q6H PRN nausea and 12/29/24 tablet vomiting #10 tabs oxycodone 5 mg tablet 5 mg PO DAILY #6 tabs Allergies Allergy/AdvReac Type Severity Reaction Status Date / Time ziprasidone (From Светлана) Allergy Unknown Verified 02/07/23 18:31 PFS <DANIELITO Caballero - Last Filed: 02/10/25 21:59> [facility] Disclaimer: The information contained in this section may have been updated after the patient was seen, as this information can be updated by other users. 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 Manic bipolar I disorder Nausea and vomiting Panic attacks Patient new to provider Right flank pain Seizures Sprain of foot, left Vertigo Viral syndrome Vomiting Surgical History H/O elbow surgery Left Social History Smoking Status: Current every day smoker tobacco type: e-cigarettes alcohol intake: never substance use type: former substance user and marijuana current occupational status: other Travel in the last 8 weeks?: None Have you lived/traveled outside US in past 30 days?: No Contact w/someone who lives/traveled outside US past 30 days?: No Exposure to someone with infectious disease in past 14 days?: No Do you have a fever (greater than 100.4 F or 38 C)?: No Have you tested positive for COVID-19?: No Exposed to someone with COVID-19 in past 14 days?: No Do you have a sore throat?: No Do you have a cough?: No Do you have any weakness?: No Do you have any diarrhea?: No Are you experiencing any unusual bleeding?: No Do you have any muscle aches/pain?: No Do you have any abdominal pain?: No Are you experiencing loss of taste or smell?: No Other Medical History Have you received the Flu Vaccine for this season: No Have you received the Pneumonia Vaccine: No <DANIELITO Caballero - Last Filed: 02/10/25 21:59> ROS Obtained: Yes Systems reviewed as appropriate & no additional complaints except as documented Physical Exam <DANIELITO Caballero - Last Filed: 02/10/25 21:59> General General appearance: alert and in no apparent distress Head Head exam: atraumatic and normocephalic Eye Eye exam: Present normal appearance and EOMI Chest Chest inspection: Present symmetric chest wall rise Respiratory Respiratory exam: Present normal lung sounds bilaterally; Absent wheezes or stridor Cardiovascular Cardiovascular exam: Present regular rate and normal rhythm; Absent systolic murmur Extremities Exam Extremities exam: Present other (Right fifth metacarpal tenderness, limited extension of the digits, neurovascularly) Neurological Exam Neurological exam: Present alert and oriented X3 Psychiatric Psychiatric exam: Present normal affect and normal mood Skin Skin exam: Present warm, dry and intact Medical Decision Making <DANIELITO Caballero - Last Filed: 02/10/25 21:59> Medical Records Screening: Per USPSTF and CDC recommendations, given the prevalence of disease in our region, it is our hospital?s policy to screen for HIV and viral Hepatitis for all patients aged 18 and over and those with ongoing risk factors. Aden Inquiry Pt receiving controlled substance: Yes Aden was queried for this patient: Yes Risks and benefits of using a controlled substance: were discussed with pt by me Vital Signs: 02/10/25 20:54 02/10/25 21:54 Temperature 98.6 F 98.6 F Temperature Source Oral Pulse Rate 87 Pulse Rate [Right] 94 H Respiratory Rate 18 16 Blood Pressure 127/72 Blood Pressure [Right Arm] 135/72 Blood Pressure Mean [Right Arm] 93 Blood Pressure Source Automatic Cuff Blood Pressure Position Sitting 02 Sat by Pulse Oximetry 98 Oxygen Delivery Method Room Air Room Air Orders (Tests/Meds): ED MEDICATIONS Discontinued Medications Generic Name Dose Route Start Last Admin Trade Name Keely PRN Reason Stop Dose Admin Ibuprofen 800 mg 02/10/25 21:38 02/10/25 21:41 Ibuprofen 800 Mg Tablet PO 02/10/25 21:39 800 mg ONCE ONE Administration ORDERS Category Date Time Status Hand XR right minimum 3 views [XR hand RT min 3V] Stat Exams 02/10/25 21:02 Completed Medical Decision Narrative: In summary patient is a 34-year-old male who presents the emergency department for evaluation of right hand pain. Patient is hemodynamically stable upon arrival, afebrile. Fifth metacarpal tenderness on exam. Differential diagnosis includes fracture, contusion, sprain. Initial workup will be conducted with x- ray. Initial inventions include x-ray. Initial workup reviewed by me x-ray reveals. Upon repeat evaluation patient is resting comfortably after placement of ulnar gutter splint. Given this patient is appropriate for discharge at this time with follow-up with orthopedics. Places wh <Rosina Morales DO - Last Filed: 02/10/25 23:55> Vital Signs: 02/10/25 20:54 02/10/25 21:54 Temperature 98.6 F 98.6 F Temperature Source Oral Pulse Rate 87 Pulse Rate [Right] 94 H Respiratory Rate 18 16 Blood Pressure 127/72 Blood Pressure [Right Arm] 135/72 Blood Pressure Mean [Right Arm] 93 Blood Pressure Source Automatic Cuff Blood Pressure Position Sitting 02 Sat by Pulse Oximetry 98 Oxygen Delivery Method Room Air Room Air Orders (Tests/Meds): ED MEDICATIONS Discontinued Medications Generic Name Dose Route Start Last Admin Trade Name Keely PRN Reason Stop Dose Admin Ibuprofen 800 mg 02/10/25 21:38 02/10/25 21:41 Ibuprofen 800 Mg Tablet PO 02/10/25 21:39 800 mg ONCE ONE Administration ORDERS Category Date Time Status Hand XR right minimum 3 views [XR hand RT min 3V] Stat Exams 02/10/25 21:02 Completed Medical Decision Narrative: In summary patient is a 34-year-old male who presents the emergency department for evaluation of right hand pain. Patient is hemodynamically stable upon arrival, afebrile. Fifth metacarpal tenderness on exam. Differential diagnosis includes fracture, contusion, sprain. Initial workup will be conducted with x- ray. Initial inventions include x-ray. Initial workup reviewed by mi x-ray reveals boxer's fracture. Upon repeat evaluation patient is resting comfortably after placement of ulnar gutter splint. Given this patient is appropriate for discharge at this time with follow-up with orthopedics. Procedures <DANIELITO Caballero - Last Filed: 02/10/25 21:59> Orthopedic Splinting/Casting Injury #1: Side: right Upper Extremity Injury Location: hand Upper Extremity Immobilizer: sling/shoulder immobilizer and ulnar gutter (applied by DANIELITO, N/V intact after application ) Post Cast/Splinting Neuro Status: intact Post Cast/Splinting Vasc Status: intact Critical Care <DANIELITO Caballero - Last Filed: 02/10/25 21:59> Critical Care Time Critical Care Time: No
[2025-02-10 21:54] VITALS: BP 127/72; PULSE 87; RESP 16; TEMP 37; O2SAT 98
== END 2025-02-10 21:55 | disposition home or self-care (01) ==
PROVIDERS: Emergency Provider Student in an Organized Health Care Education/Training Program
DX: S62.336A Displaced fracture of neck of fifth metacarpal bone, right hand, initial encounter for closed fracture (principal); W22.8XXA Striking against or struck by other objects, initial encounter
CPT/HCPCS: 29125; 73130; 99282; 99283

== ENCOUNTER 2025-02-25 09:15 | Outpatient (CLI) | payer OTHER, SELFPAY ==
--- NOTE | 2025-02-25 09:17 | XR_ITS ---
FINAL REPORT CLINICAL HISTORY: right hand fx 5th metacarpal FINDINGS: AP, lateral and oblique views of the right hand were obtained. There is no prior exam for comparison. There is an angulated fracture of the distal right 5th metacarpal. Fracture does not extend to the MCP joint. No other acute osseous abnormality identified. The joint spaces are preserved. There is mild soft tissue edema along the 5th metacarpal. IMPRESSION: Distal 5th metacarpal fracture with soft tissue edema. Reviewed, Interpreted and Dictated by Kimberley Meza MD Transcribed by Andria Bowen Authenticated and [facility]
== END 2025-02-25 23:59 ==
LOC: RAD 09:15
PROVIDERS: Visit Provider Physician Assistant Surgical
DX: S62.336D Displaced fracture of neck of fifth metacarpal bone, right hand, subsequent encounter for fracture with routine healing (principal); X58.XXXD Exposure to other specified factors, subsequent encounter
CPT/HCPCS: 73130